=== PATIENT | female | born 1955 | race Caucasian/White ===

== ENCOUNTER → 2016-11-28 | Outpatient (CLI) | payer MEDICARE, BC ==
--- NOTE | 2016-11-28 15:39 | CT ---
EXAMINATION TYPE: CT abdomen pelvis wo con DATE OF EXAM: 11/28/2016 3:20 PM COMPARISON: NONE INDICATION: abdominal pain, hx of hiatal hernia DLP: 1111.0 mGycm, Automated exposure control for dose reduction was used. CONTRAST: mL of . Study performed without Oral Contrast TECHNIQUE: Axial images were obtained from above the diaphragm to the pubic rami in the axial plane a t 5 mm thick sections. Reconstructed images are reviewed on the computer in the coronal plane. FINDINGS: Limited CT sections are obtained the lung bases. The lung bases are clear. CT ABDOMEN: There is an anterior abdominal wall hernia just below the umbilicus. Some loops of small bowel without dilatation within this [place] opening. Liver: Normal Spleen: Normal Pancreas: There is some fatty infiltration within the atrophic pancreas. Adrenal glands: The adrenal glands are normal. Gallbladder: Normal Kidneys: No masses are evident. No hydronephrosis is present. No cysts are present. There may be d uplication of the left renal collecting system. Similar appearance is also present on the right kidne y. Ureters are not dilated. Aorta: Vascular calcification is within the aorta. Inferior vena cava: Normal. CT PELVIS: Loops of bowel within the abdomen and pelvis are normal. Postsurgical changes are within the asce nding colon region. Appendix: Not visualized. Urinary bladder: Normal. Genitourinary structures: Uterus is not identified. Adnexal regions appear unremarkable. Osseous structures: No suspicious lytic or sclerotic lesions. IMPRESSIONS: 1. No acute process abdomen and pelvis. 2. 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 No obstruction is evide nt.
== END | disposition home or self-care (01) ==
LOC: RADCTMAIN 15:05
PROVIDERS: ATTEND Internal Medicine
DX: R10.9 Unspecified abdominal pain (principal)
CPT/HCPCS: 74176

== ENCOUNTER 2017-02-09 11:19 | Observation (INO) | payer MEDICARE, BC ==
[2017-02-09] MEDS ORDERED: ASPIRIN 81 MG CHEW PO STA (11:52)
[2017-02-09] MEDS ORDERED: NITROGLYCERIN OINT 1 INCH/GM PACKET TOPICAL STA (11:52)
--- NOTE | 2017-02-09 12:06 | ED ---
General Adult HPI - General Chief complaint: Chest Pain Stated complaint: CHEST PAIN Time Seen by Provider: 02/09/17 11:29 Source: patient, RN notes reviewed Mode of arrival: ambulatory Limitations: no limitations - History of Present Illness Initial comments: Patient is a pleasant 61-year-old female presenting to the emergency Department with chest discomfort. Symptoms have been intermittent over the past week. Patient has had exertional dyspnea for the past several weeks. No nausea. Patient has had an episode of associated sweating. No history of similar chest discomfort previously. Currently symptoms are mild. Discomfort feels like indigestion or pressure. - Related Data Home Medications Medication Instructions Recorded Confirmed Calcium Carbonate/Vitamin D3 1 tab PO DAILY 06/01/16 02/09/17 [Caltrate 600 Plus D3 Tablet] Labetalol [Trandate] 400 mg PO TID 06/01/16 02/09/17 Lacosamide [Vimpat] 200 mg PO BID@0600,1700 06/01/16 02/09/17 Magnesium 400 mg PO BID@0700,1400 06/01/16 02/09/17 NIFEdipine [Procardia XL] 90 mg PO DAILY 06/01/16 02/09/17 [place]-3 Fatty Acids/Fish Oil [Fish 1 cap PO BID@0600,1700 06/01/16 02/09/17 Oil 1,000 mg Softgel] Omeprazole 20 mg PO BID@0600,1700 06/01/16 02/09/17 Pravastatin Sodium [Pravachol] 20 mg PO HS 06/01/16 02/09/17 Thiamine [Vitamin B-1] 100 mg PO DAILY 06/01/16 02/09/17 cloNIDine HCL [Catapres] 0.2 mg PO BID@0700,2100 06/01/16 02/09/17 cycloSPORINE [cycloSPORINE (GEQ 100 mg PO BID 06/01/16 02/09/17 for SandIMMUNE) 100MG] Insulin Aspart [NovoLOG Flexpen] 15 units SQ AC-TID 02/09/17 02/09/17 Insulin Glargine,Hum.rec.anlog 45 unit SQ AC-BRKFST 02/09/17 02/09/17 [Lantus Solostar] cloNIDine HCL [Catapres] 0.1 mg PO DAILY@1400 02/09/17 02/09/17 Allergies Allergy/AdvReac Type Severity Reaction Status Date / Time venom-honey bee Allergy Severe Swelling Verified 02/09/17 12:29 [bee venom (honey bee)] ciprofloxacin Allergy Rash/Hives Verified 02/09/17 12:29 codeine Allergy Rash/Hives Verified 02/09/17 12:29 erythromycin base Allergy Rash/Hives Verified 02/09/17 12:29 levofloxacin Allergy Rash/Hives Verified 02/09/17 12:29 lisinopril Allergy Rash/Hives Verified 02/09/17 12:29 metformin Allergy Swelling Verified 02/09/17 12:29 of throat moxifloxacin Allergy Rash/Hives Verified 02/09/17 12:29 Penicillins Allergy hives, Verified 02/09/17 12:29 swelling plum Allergy Unknown Verified 02/09/17 12:29 rofecoxib Allergy Rash/Hives Verified 02/09/17 12:29 Tetracyclines Allergy Rash/Hives Verified 02/09/17 12:29 Review of Systems ROS Statement: Those systems with pertinent positive or pertinent negative responses have been documented in the HPI. ROS Other: All systems not noted in ROS Statement are negative. Constitutional: Denies: fever Eyes: Denies: eye pain ENT: Denies: ear pain Respiratory: Reports: dyspnea (With exertion) Cardiovascular: Reports: chest pain Gastrointestinal: Denies: abdominal pain, nausea Genitourinary: Denies: dysuria Musculoskeletal: Denies: back pain Skin: Denies: rash Neurological: Denies: weakness Past Medical History Past Medical History: Diabetes Mellitus, Hyperlipidemia, Hypertension, Seizure Disorder Additional Past Medical History / Comment(s): liver transplant obesity History of Any Multi-Drug Resistant Organisms: None Reported Past Surgical History: Bowel Resection, Breast Surgery, Hernia Repair, Hysterectomy, Tubal Ligation Additional Past Surgical History / Comment(s): liver transplant carpel tunnel gall stones Past Psychological History: Depression Smoking Status: Former smoker Past Alcohol Use History: None Reported Past Drug Use History: None Reported General Exam Limitations: no limitations General appearance: alert, in no apparent distress Head exam: Present: atraumatic Eye exam: Present: normal appearance ENT exam: Present: normal oropharynx Neck exam: Present: normal inspection Respiratory exam: Present: normal lung sounds bilaterally Cardiovascular Exam: Present: regular rate, normal rhythm Expanded Peripheral pulses: 2+: Radial (R), Radial (L), Posterior Tibialis (R), Posterior Tibialis (L) GI/Abdominal exam: Present: soft. Absent: tenderness Extremities exam: Present: normal inspection. Absent: pedal edema, calf tenderness Neurological exam: Present: alert Psychiatric exam: Present: normal affect, normal mood Skin exam: Present: normal color Course Vital Signs 02/09/17 02/09/17 11:21 11:52 Temperature 97.8 F Pulse Rate 87 Pulse Rate [ 85 Left Radial] Respiratory 18 Rate Blood Pressure 191/85 O2 Sat by Pulse 98 Oximetry EKG Findings - EKG Comments: EKG Findings:: Normal sinus rhythm 83. NM 192. QRS 80. QT 404. QTC 474. Normal axis. Normal QRS. Normal ST-T. Medical Decision Making - Medical Decision Making Patient reevaluated and resting comfortably in bed. Patient family updated on results and plan. Case discussed with Dr. Yan, who will admit for Dr. Mims. - Lab Data Result diagrams: 02/09/17 11:50 02/09/17 11:50 Lab Results 02/09/17 02/09/17 02/09/17 Range/Units 11:50 11:50 11:50 WBC 7.5 (3.8-10.6) k/uL RBC 4.25 (3.80-5.40) m/uL Hgb 11.1 L (11.4-16.0) gm/dL Hct 33.8 L (34.0-46.0) % MCV 79.5 L (80.0-100.0) fL MCH 26.1 (25.0-35.0) pg MCHC 32.9 (31.0-37.0) g/dL RDW 16.3 H (11.5-15.5) % Plt Count 309 (150-450) k/uL Neutrophils % 70 % Lymphocytes % 20 % Monocytes % 6 % Eosinophils % 2 % Basophils % 0 % Neutrophils # 5.3 (1.3-7.7) k/uL Lymphocytes # 1.5 (1.0-4.8) k/uL Monocytes # 0.5 (0-1.0) k/uL Eosinophils # 0.2 (0-0.7) k/uL Basophils # 0.0 (0-0.2) k/uL Poikilocytosis Slight Anisocytosis Slight Microcytosis Slight PT (9.0-12.0) sec INR (<1.1) APTT (22.0-30.0) sec Sodium 141 (137-145) mmol/L Potassium 4.7 (3.5-5.1) mmol/L Chloride 104 (98-107) mmol/L Carbon Dioxide 27 (22-30) mmol/L Anion Gap 10 mmol/L BUN 25 H (7-17) mg/dL Creatinine 1.21 H (0.52-1.04) mg/dL Est GFR (MDRD) Af Amer 55 (>60 ml/min/1.73 sqM) Est GFR (MDRD) Non-Af 45 (>60 ml/min/1.73 sqM) Glucose 173 H (74-99) mg/dL Calcium 9.5 (8.4-10.2) mg/dL Magnesium 1.9 (1.6-2.3) mg/dL Total Bilirubin 0.9 (0.2-1.3) mg/dL AST 24 (14-36) U/L ALT 43 (9-52) U/L Alkaline Phosphatase 191 H (38-126) U/L Total Creatine Kinase 110 (30-135) U/L CK-MB (CK-2) 0.8 (0.0-2.4) ng/mL CK-MB (CK-2) Rel Index 0.7 Troponin I <0.012 (0.000-0.034) ng/mL NT-Pro-B Natriuret Pep pg/mL Total Protein 7.0 (6.3-8.2) g/dL Albumin 3.9 (3.5-5.0) g/dL 02/09/17 02/09/17 Range/Units 11:50 11:50 WBC (3.8-10.6) k/uL RBC (3.80-5.40) m/uL Hgb (11.4-16.0) gm/dL Hct (34.0-46.0) % MCV (80.0-100.0) fL MCH (25.0-35.0) pg MCHC (31.0-37.0) g/dL RDW (11.5-15.5) % Plt Count (150-450) k/uL Neutrophils % % Lymphocytes % % Monocytes % % Eosinophils % % Basophils % % Neutrophils # (1.3-7.7) k/uL Lymphocytes # (1.0-4.8) k/uL Monocytes # (0-1.0) k/uL Eosinophils # (0-0.7) k/uL Basophils # (0-0.2) k/uL Poikilocytosis Anisocytosis Microcytosis PT 9.6 (9.0-12.0) sec INR 0.9 (<1.1) APTT 22.2 (22.0-30.0) sec Sodium (137-145) mmol/L Potassium (3.5-5.1) mmol/L Chloride (98-107) mmol/L Carbon Dioxide (22-30) mmol/L Anion Gap mmol/L BUN (7-17) mg/dL Creatinine (0.52-1.04) mg/dL Est GFR (MDRD) Af Amer (>60 ml/min/1.73 sqM) Est GFR (MDRD) Non-Af (>60 ml/min/1.73 sqM) Glucose (74-99) mg/dL Calcium (8.4-10.2) mg/dL Magnesium (1.6-2.3) mg/dL Total Bilirubin (0.2-1.3) mg/dL AST (14-36) U/L ALT (9-52) U/L Alkaline Phosphatase (38-126) U/L Total Creatine Kinase (30-135) U/L CK-MB (CK-2) (0.0-2.4) ng/mL CK-MB (CK-2) Rel Index Troponin I (0.000-0.034) ng/mL NT-Pro-B Natriuret Pep 255 pg/mL Total Protein (6.3-8.2) g/dL Albumin (3.5-5.0) g/dL - Radiology Data Radiology results: image reviewed (Chest x-ray shows no acute process) Disposition Clinical Impression: Unstable angina pectoris Disposition: ADMITTED IP TO THIS [facility] Referrals: Reid Mims MD [Primary Care Provider] - 1-2 days Decision Time: 13:06
[2017-02-09 12:07] LABS: Anisocytosis Slight; Basophils % (A) 0 %; CHCM 34.1; Eosinophils # (A) 0.2 k/uL (0-0.7); Eosinophils % (A) 2 %; HCT 33.8 % (34.0-46.0); HDW 3.93; HGB 11.1 gm/dL (11.4-16.0); Luc # (Auto) 0.13; Luc % (Auto) 2; Lymphocytes # (A) 1.5 k/uL (1.0-4.8); Lymphocytes % (A) 20 %; MCH 26.1 pg (25.0-35.0); MCHC 32.9 g/dL (31.0-37.0); MCV 79.5 fL (80.0-100.0); Mean Platelet Volume 7.7; Microcytosis Slight; Monocytes # (A) 0.5 k/uL (0-1.0); Monocytes % (A) 6 %; Neutrophils # (A) 5.3 k/uL (1.3-7.7); Neutrophils % (A) 70 %; Poikilocytosis Slight; RBC 4.25 m/uL (3.80-5.40); RDW 16.3 % (11.5-15.5); WBC 7.5 k/uL (3.8-10.6); WBC (Perox) 7.27
[2017-02-09 12:16] LABS: INR 0.9 (<1.1); Prothrombin Time 9.6 sec (9.0-12.0)
[2017-02-09 12:17] LABS: Calcium 9.5 mg/dL (8.4-10.2); Magnesium 1.9 mg/dL (1.6-2.3); Potassium 4.7 mmol/L (3.5-5.1); Total Bilirubin 0.9 mg/dL (0.2-1.3)
[2017-02-09 12:25] LABS: Partial Thromboplastin Time 22.2 sec (22.0-30.0)
[2017-02-09 12:26] LABS: Creatine Kinase 110 U/L (30-135)
--- NOTE | 2017-02-09 12:35 | XR ---
EXAMINATION TYPE: XR chest 2V DATE OF EXAM: 02/09/2017 COMPARISON: 10/27/2013 INDICATION: Chest pain TECHNIQUE: Frontal and lateral views of the chest are obtained. FINDINGS: The heart size is normal. The pulmonary vasculature is normal. The lungs are clear. IMPRESSION: 1. No acute pulmonary process.
[2017-02-09 12:39] LABS: Creatine Kinase MB 0.8 ng/mL (0.0-2.4); Troponin I <0.012 ng/mL (0.000-0.034)
[2017-02-09] MEDS ORDERED: HEPARIN SODIUM,PORCINE 5,000 UNIT/ML 1 ML VIAL IV PRN (13:06)
[2017-02-09] MEDS ORDERED: HEPARIN SODIUM,PORCINE 5,000 UNIT/ML 1 ML VIAL IV ONE (13:06)
[2017-02-09] MEDS ORDERED: NITROGLYCERIN SL TABS 0.4 MG TAB SUBLINGUAL PRN (13:06)
[2017-02-09] MEDS ORDERED: HEPARIN SODIUM,PORCINE/D5W PMX 25,000 UNIT in DEXTROSE/WATER 1 500ML.BAG IV SCH (13:15)
[2017-02-09 16:57] LABS: Glucose,Whole Blood 169 mg/dL (75-99)
[2017-02-09 20:17] LABS: Calcium 9.2 mg/dL (8.4-10.2); Total Bilirubin 0.7 mg/dL (0.2-1.3)
[2017-02-09 20:26] LABS: Creatine Kinase 89 U/L (30-135)
[2017-02-09] MEDS: NITROGLYCERIN OINT 1 INCH/GM PACKET TOPICAL SCH (20:32)
[2017-02-09 20:35] LABS: Potassium 4.4 mmol/L (3.5-5.1)
[2017-02-09 20:39] LABS: Creatine Kinase MB 0.6 ng/mL (0.0-2.4); Troponin I <0.012 ng/mL (0.000-0.034)
[2017-02-09] MEDS ORDERED: ACETAMINOPHEN TAB 325 MG TAB PO PRN (20:43)
[2017-02-09] MEDS: LABETALOL 200 MG TAB PO SCH (20:46)
[2017-02-09] MEDS: LACOSAMIDE 50 MG TABLET PO SCH (20:46)
[2017-02-09] MEDS: cloNIDine HCL 0.2 MG TAB PO SCH (20:46)
[2017-02-09] MEDS: cycloSPORINE 100 MG CAP PO SCH (20:46)
[2017-02-09] MEDS: INSULIN LISPRO (humaLOG) 300 UNIT/3 ML VIAL SQ SCH (20:47)
[2017-02-09 20:48] LABS: Glucose,Whole Blood 216 mg/dL (75-99)
[2017-02-09] MEDS ORDERED: PRAVASTATIN SODIUM 20 MG TAB PO SCH (21:00)
[2017-02-09 22:49] LABS: Hemoglobin A1C 7.4 % (4.2-6.1)
[2017-02-09 23:49] LABS: Creatine Kinase 87 U/L (30-135)
[2017-02-10 00:03] LABS: Creatine Kinase MB 0.7 ng/mL (0.0-2.4); Troponin I <0.012 ng/mL (0.000-0.034)
[2017-02-10 03:44] VITALS: RESP 16
[2017-02-10 04:20] LABS: Anisocytosis Slight; Basophils % (A) 1 %; CH 26.6; CHCM 32.2; Eosinophils # (A) 0.2 k/uL (0-0.7); Eosinophils % (A) 4 %; HCT 34.6 % (34.0-46.0); HDW 3.72; HGB 11.1 gm/dL (11.4-16.0); Hypochromasia Slight; Luc # (Auto) 0.14; Luc % (Auto) 3; Lymphocytes # (A) 1.3 k/uL (1.0-4.8); Lymphocytes % (A) 24 %; MCH 26.6 pg (25.0-35.0); MCHC 32.1 g/dL (31.0-37.0); MCV 83.1 fL (80.0-100.0); Mean Platelet Volume 7.1; Monocytes # (A) 0.4 k/uL (0-1.0); Monocytes % (A) 7 %; Neutrophils # (A) 3.4 k/uL (1.3-7.7); Neutrophils % (A) 61 %; Poikilocytosis Slight; RBC 4.17 m/uL (3.80-5.40); RDW 16.5 % (11.5-15.5); WBC 5.5 k/uL (3.8-10.6); WBC (Perox) 5.58
[2017-02-10] MEDS: NITROGLYCERIN OINT 1 INCH/GM PACKET TOPICAL SCH ×3 (05:35→12:45)
[2017-02-10] MEDS ORDERED: LACOSAMIDE 50 MG TABLET PO SCH (06:00)
[2017-02-10] MEDS ORDERED: NON-FORMULARY DRUG (Omega-3 Fatty Acids/Fish Oil [Fish Oil 1,000 Mg Softgel] 1 CAP) PO SCH (06:00)
[2017-02-10] MEDS ORDERED: PANTOPRAZOLE 40 MG TABLET PO SCH (06:00)
[2017-02-10 06:09] LABS: Cholesterol 175 mg/dL (<200); HDL Cholesterol 54 mg/dL (40-60); Triglycerides 199 mg/dL (<150)
[2017-02-10 06:46] LABS: Glucose,Whole Blood 178 mg/dL (75-99)
[2017-02-10] MEDS ORDERED: INSULIN GLARGINE 100 UNIT/ML 10 ML VIAL SQ SCH (07:30)
[2017-02-10] MEDS: MAGNESIUM OXIDE 400 MG TAB PO SCH ×2 (08:33→15:37)
[2017-02-10] MEDS: INSULIN LISPRO (humaLOG) 300 UNIT/3 ML VIAL SQ SCH ×4 (08:34→12:52)
[2017-02-10] MEDS ORDERED: FUROSEMIDE 20 MG TAB PO SCH (09:00)
[2017-02-10] MEDS ORDERED: ASPIRIN 325 MG TAB PO SCH (09:00)
[2017-02-10] MEDS ORDERED: CALCIUM CARB-VIT D 500MG-200UN 1 EACH TAB PO SCH (09:00)
[2017-02-10] MEDS ORDERED: NIFEdipine XL 90 MG TAB.ER.24 PO SCH (09:00)
[2017-02-10] MEDS ORDERED: THIAMINE 100 MG TAB PO SCH (09:00)
[2017-02-10 09:59] LABS: Glucose,Whole Blood 139 mg/dL (75-99)
[2017-02-10] MEDS ORDERED: DOBUTamine DRIP for NUC MED 500 MG in DEXTROSE/WATER 1 250ML.BAG IV ONE (10:27)
--- NOTE | 2017-02-10 10:33 | P.CRDCN ---
History of Present Illness Reason for Consult (text): Chest pain and shortness of breath. History of present illness: This patient is a having symptoms of chest discomfort and shortness of breath on and off for last couple of weeks. He was he tries to do something she gets short of breath and see has to rest. Sees a having a mild dull aching pain in the left anterior part of the chest. Comes and goes. And has a history of for hypertension and diabetes. Also has a history of for liver transplant is no previous history of myocardial infarction. Patient denies any history of orthopnea or PND. Denies any history of cough with expectoration. Past Medical History Past Medical History: COPD, Diabetes Mellitus, GERD/Reflux, Hyperlipidemia, Hypertension, Liver Disease, Renal Disease, Rheumatoid Arthritis (RA), Seizure Disorder Additional Past Medical History / Comment(s): Cryptogenic cirrhosis with liver transplant 2013, hepatic encephalopathy, IDDM type II, numbness/tingling L arm, CKD stage III, anemia, last seizure 06/20/14, hiatal hernia, PUD, colitis, eczema , migraines, scoliosis, UTIs, colon polyps benign, varicose veins bilaterally, obesity History of Any Multi-Drug Resistant Organisms: None Reported Past Surgical History: Bowel Resection, Breast Surgery, Cholecystectomy, Hernia Repair, Hysterectomy, Tonsillectomy, Tubal Ligation Additional Past Surgical History / Comment(s): 2013 liver transplant, bowel resection d/t strangulation, L breast bx/lumpectomy-benign, incisional hernia repair, R carpel tunnel release, colonoscopy/polypectomy, R foot heel spur, bilateral cataract removal, mass removed from thyroid-benign. Past Anesthesia/Blood Transfusion Reactions: No Reported Reaction Smoking Status: Former smoker - Past Family History Father Family Medical History: Myocardial Infarction (MO) Additional Family Medical History / Comment(s): Father of a MO at the age of 44yrs. Mother Family Medical History: Coronary Artery Disease (CAD), Dementia, Diabetes Mellitus Additional Family Medical History / Comment(s): Mother at the age of 78yrs. Medications and Allergies Home Medications Medication Instructions Recorded Confirmed Type Calcium Carbonate/Vitamin D3 1 tab PO DAILY 06/01/16 02/09/17 History [Caltrate 600 Plus D3 Tablet] Labetalol [Trandate] 400 mg PO TID 06/01/16 02/09/17 History Lacosamide [Vimpat] 200 mg PO BID@0600,1700 06/01/16 02/09/17 History Magnesium 400 mg PO BID@0700,1400 06/01/16 02/09/17 History NIFEdipine [Procardia XL] 90 mg PO DAILY 06/01/16 02/09/17 History [place]-3 Fatty Acids/Fish Oil [Fish 1 cap PO BID@0600,1700 06/01/16 02/09/17 History Oil 1,000 mg Softgel] Omeprazole 20 mg PO BID@0600,1700 06/01/16 02/09/17 History Pravastatin Sodium [Pravachol] 20 mg PO HS 06/01/16 02/09/17 History Thiamine [Vitamin B-1] 100 mg PO DAILY 06/01/16 02/09/17 History cloNIDine HCL [Catapres] 0.2 mg PO BID@0700,2100 06/01/16 02/09/17 History cycloSPORINE [cycloSPORINE (GEQ 100 mg PO BID 06/01/16 02/09/17 History for SandIMMUNE) 100MG] Insulin Aspart [NovoLOG Flexpen] 15 units SQ AC-TID 02/09/17 02/09/17 History Insulin Glargine,Hum.rec.anlog 45 unit SQ AC-BRKFST 02/09/17 02/09/17 History [Lantus Solostar] cloNIDine HCL [Catapres] 0.1 mg PO DAILY@1400 02/09/17 02/09/17 History Allergies Allergy/AdvReac Type Severity Reaction Status Date / Time venom-honey bee Allergy Severe Swelling Verified 02/09/17 12:29 [bee venom (honey bee)] ciprofloxacin Allergy Rash/Hives Verified 02/09/17 12:29 codeine Allergy Rash/Hives Verified 02/09/17 12:29 erythromycin base Allergy Rash/Hives Verified 02/09/17 12:29 levofloxacin Allergy Rash/Hives Verified 02/09/17 12:29 lisinopril Allergy Rash/Hives Verified 02/09/17 12:29 metformin Allergy Swelling Verified 02/09/17 12:29 of throat moxifloxacin Allergy Rash/Hives Verified 02/09/17 12:29 Penicillins Allergy hives, Verified 02/09/17 12:29 swelling plum Allergy Unknown Verified 02/09/17 12:29 rofecoxib Allergy Rash/Hives Verified 02/09/17 12:29 Tetracyclines Allergy Rash/Hives Verified 02/09/17 12:29 Physical Exam Vitals: Vital Signs Temp Pulse Pulse Pulse Resp BP BP 02/10/17 08:00 98.2 F 77 16 178/93 02/10/17 04:00 16 02/10/17 03:43 97.9 F 67 16 169/70 02/10/17 00:00 18 02/09/17 23:56 98.7 F 77 18 180/91 02/09/17 20:00 16 02/09/17 19:27 98.6 F 81 16 179/82 02/09/17 16:39 02/09/17 16:04 98.1 F 70 18 02/09/17 13:23 97 F L 72 17 129/59 02/09/17 11:52 85 02/09/17 11:21 97.8 F 87 18 191/85 BP Pulse Ox 02/10/17 08:00 94 L 02/10/17 04:00 02/10/17 03:43 92 L 02/10/17 00:00 02/09/17 23:56 91 L 02/09/17 20:00 02/09/17 19:27 92 L 02/09/17 16:39 94 L 02/09/17 16:04 140/75 92 L 02/09/17 13:23 98 02/09/17 11:52 02/09/17 11:21 98 Intake and Output 02/09/17 02/10/17 02/10/17 22:59 06:59 14:59 Intake Total 160.667 198.892 Balance 160.667 198.892 Intake: Intake, IV Titration 160.667 198.892 Amount Heparin Sodium,Porcine/ 160.667 198.892 D5w Pmx 25,000 unit In Dextrose/Water 1 500ml. bag @ 9.713 UNITS/KG/HR 20 mls/hr IV .Q24H [facility] Rx #:[id number] Other: Voiding Method Toilet Toilet # Voids 1 1 This patient is obesely built and comfortable. Vital signs are reviewed. Head ENT. Negative. Neck. Supple no increase in jugular venous pressure is noted. The carotid pulses are felt at that is no bruit. Chest symmetrical Heart. First and second heart sounds are normal no murmurs are noted. Once. Clinically clear to auscultation and percussion. Abdomen. Soft liver and spleen are not enlarged Extremities peripheral pulses since are 2+ that is no evidence of any leg edema. EKG shows normal sinus rhythm without any acute ischemic changes. Troponins are normal. Results 02/10/17 03:53 02/09/17 19:30 Cardiac Enzymes 02/09/17 02/09/17 02/09/17 Range/Units 11:50 11:50 19:27 AST 24 (14-36) U/L CK-MB (CK-2) 0.8 0.6 (0.0-2.4) ng/mL Troponin I <0.012 <0.012 (0.000-0.034) ng/mL 02/09/17 02/09/17 Range/Units 19:30 23:13 AST 26 (14-36) U/L CK-MB (CK-2) 0.7 (0.0-2.4) ng/mL Troponin I <0.012 (0.000-0.034) ng/mL Coagulation 02/09/17 02/09/17 02/10/17 Range/Units 11:50 19:27 03:53 PT 9.6 (9.0-12.0) sec APTT 22.2 25.3 35.3 H (22.0-30.0) sec Lipids 02/10/17 Range/Units 03:53 Triglycerides 199 H (<150) mg/dL Cholesterol 175 (<200) mg/dL HDL Cholesterol 54 (40-60) mg/dL CBC 02/09/17 02/10/17 Range/Units 11:50 03:53 WBC 7.5 5.5 (3.8-10.6) k/uL RBC 4.25 4.17 (3.80-5.40) m/uL Hgb 11.1 L 11.1 L (11.4-16.0) gm/dL Hct 33.8 L 34.6 (34.0-46.0) % Plt Count 309 267 (150-450) k/uL Comprehensive Metabolic Panel 02/09/17 02/09/17 Range/Units 11:50 19:30 Sodium 141 139 (137-145) mmol/L Potassium 4.7 4.4 (3.5-5.1) mmol/L Chloride 104 106 (98-107) mmol/L Carbon Dioxide 27 23 (22-30) mmol/L BUN 25 H 26 H (7-17) mg/dL Creatinine 1.21 H 1.35 H (0.52-1.04) mg/dL Glucose 173 H 273 H (74-99) mg/dL Calcium 9.5 9.2 (8.4-10.2) mg/dL AST 24 26 (14-36) U/L ALT 43 37 (9-52) U/L Alkaline Phosphatase 191 H 176 H (38-126) U/L Total Protein 7.0 7.0 (6.3-8.2) g/dL Albumin 3.9 3.7 (3.5-5.0) g/dL Current Medications Generic Name Dose Route Start Last Admin Trade Name Freq PRN Reason Stop Dose Admin Acetaminophen 650 mg 02/09/17 20:43 02/09/17 20:50 Tylenol Tab PO 650 mg Q4HR PRN Administration Fever and/ or Pain Aspirin 325 mg 02/10/17 09:00 02/10/17 08:33 Aspirin PO 325 mg DAILY [facility]DI Administration Calcium Carbonate 1 each 02/10/17 09:00 02/10/17 08:33 Oscal 500+D PO 1 each DAILY [facility]DI Administration Clonidine 0.1 mg 02/10/17 14:00 Catapres PO DAILY@1400 [facility]DI Clonidine 0.2 mg 02/09/17 21:00 02/09/17 20:46 Catapres PO 0.2 mg BID@0700,2100 [facility] Administration Cyclosporine 100 mg 02/09/17 21:00 02/09/17 20:46 Sandimmune PO 100 mg BID [facility]DI Administration Furosemide 20 mg 02/10/17 09:00 02/10/17 08:33 Lasix PO 20 mg DAILY [facility]DI Administration Heparin Sodium (Porcine) 0 unit 02/09/17 13:06 Heparin IV Q6HR PRN Low PTT Protocol Heparin Sodium/Dextrose 25,000 500 mls @ 20 mls/hr 02/09/17 13:15 02/10/17 05 :32 unit/ IV Solution IV 15.71 units/kg/hr .Q24H [facility] 32.35 mls/hr Protocol Titration 9.713 UNITS/KG/HR Insulin Glargine 45 unit 02/10/17 07:30 02/10/17 08:21 Lantus SQ Not Given AC-BRKFST [facility] Insulin Human Lispro 15 unit 02/10/17 07:30 02/10/17 08:34 Humalog SQ 15 unit AC-TID [facility]DI Administration Insulin Human Lispro 0 unit 02/09/17 21:00 02/10/17 08:35 Humalog SQ 3 unit ACHS [facility]DI Administration Protocol Labetalol HCl 400 mg 02/09/17 22:00 02/09/17 20:46 Trandate PO 400 mg TID [facility] Administration Lacosamide 200 mg 02/09/17 21:00 02/09/17 20:46 Vimpat PO 200 mg BID [facility] Administration Magnesium Oxide 400 mg 02/10/17 07:00 02/10/17 08:33 Mag-Ox PO 400 mg BID@0700,1400 [facility] Administration Nifedipine 90 mg 02/10/17 09:00 Procardia Xl PO DAILY [facility] Nitroglycerin 1 inch 02/09/17 18:00 02/10/17 05:35 Nitro-Bid Oint TOPICAL Not Given Q6HR [facility] Nitroglycerin 0.4 mg 02/09/17 13:06 Nitrostat SUBLINGUAL Q5M PRN Chest Pain Pantoprazole Sodium 40 mg 02/10/17 06:00 02/10/17 05:37 Protonix PO 40 mg BID@0600,1700 [facility] Administration Pravastatin Sodium 20 mg 02/09/17 21:00 02/09/17 20:46 Pravachol PO 20 mg HS [facility] Administration Sodium Chloride 10 ml 02/09/17 21:00 02/10/17 08:22 Saline Flush IV Not Given BID [facility] Thiamine HCl 100 mg 02/10/17 09:00 02/10/17 08:33 Vitamin B-1 PO 100 mg DAILY [facility] Administration Intake and Output 02/09/17 02/10/17 02/10/17 22:59 06:59 14:59 Intake Total 160.667 198.892 Balance 160.667 198.892 Intake: Intake, IV Titration 160.667 198.892 Amount Heparin Sodium,Porcine/ 160.667 198.892 D5w Pmx 25,000 unit In Dextrose/Water 1 500ml. bag @ 9.713 UNITS/KG/HR 20 mls/hr IV .Q24H [facility] Rx #:[id number] Other: Voiding Method Toilet Toilet # Voids 1 1 02/10/17 03:53 02/09/17 19:30 EKG Interpretations (text) EKG shows normal sinus rhythm without any acute ischemic changes. Assessment and Plan Plan: Clinically this is chest pains are suggestive for atypical angina. Since EKGs and cardiac enzymes are normal. Is no evidence of congestive cardiac failure patient's proBNP level is normal. Patient would be evaluated with echocardiogram and dobutamine stress echocardiographic study. The stress test is normal patient can be discharged home. I have advised to patient to check with his her liver doctor whether she can be started on any statin.
[2017-02-10] MEDS: cycloSPORINE 100 MG CAP PO SCH (10:34)
[2017-02-10] MEDS: LACOSAMIDE 50 MG TABLET PO SCH (10:36)
[2017-02-10] MEDS ORDERED: ATROPINE SULFATE 0.1 MG/ML 10ML SYRINGE ONE (12:00)
[2017-02-10 12:20] LABS: Glucose,Whole Blood 71 mg/dL (75-99)
--- NOTE | 2017-02-10 12:21 | ECHOF ---
Referral Reason:chest pain MEASUREMENTS -------- HEIGHT: 154.9 cm WEIGHT: 103.0 kg BP: IVSd: 1.2 cm (0.6 - 1.1) LVIDd: 4.4 cm (3.9 - 5.3) LVPWd: 1.2 cm (0.6 - 1.1) IVSs: 1.6 cm LVIDs: 2.5 cm LVPWs: 1.5 cm LAESV Index (A-L): 19.66 ml/m Ao Diam: 3.0 cm (2.0 - 3.7) AV Cusp: 1.7 cm (1.5 - 2.6) LA Diam: 2.8 cm (2.7 - 3.8) MV EXCURSION: 15.271 mm (> 18.000) MV EF SLOPE: 81 mm/s (70 - 150) EPSS: 0.4 cm MV E Raymond: 0.87 m/s MV DecT: 207 ms MV A Raymond: 0.87 m/s MV E/A Ratio: 1.00 AR PHT: 905 ms RAP: 5.00 mmHg RVSP: 25.15 mmHg FINDINGS -------- Sinus rhythm. This was a technically good study. There is borderline concentric left ventricular hypertrophy. Overall left ventricular systolic function is normal with, an EF between 55 - 60 %. The right ventricle is normal in size and function. The left atrium is normal in size. Normal LA size by volume 22+/-6 ml/m2. The right atrium is normal in size. The aortic valve is trileaflet, and appears structurally normal. No aortic stenosis or regurgitation. The mitral valve leaflets are mildly thickened. Mild mitral regurgitation is present. Mild tricuspid regurgitation present. The right ventricular systolic pressure, as measured by Doppler, is 25.15mmHg. Pulmonic valve appears structurally normal. The aortic root size is normal. The pericardium is normal. CONCLUSIONS -------- 1. Sinus rhythm. 2. The mitral valve leaflets are mildly thickened. 3. Mild mitral regurgitation is present. 4. Mild tricuspid regurgitation present. 5. The right ventricular systolic pressure, as measured by Doppler, is 25.15mmHg. 6. Pulmonic valve appears structurally normal. 7. The aortic root size is normal. 8. The pericardium is normal. 9. This was a technically good study. 10. There is borderline concentric left ventricular hypertrophy. 11. Overall left ventricular systolic function is normal with, an EF between 55 - 60 %. 12. The right ventricle is normal in size and function. 13. The left atrium is normal in size. 14. Normal LA size by volume 22+/-6 ml/m2. 15. The right atrium is normal in size. 16. The aortic valve is trileaflet, and appears structurally normal. No aortic stenosis or regurgitation. AUTHORIZATION REP: Judy Mckeon RDCS
[2017-02-10 12:22] VITALS: BP 179/89; PULSE 93; TEMP 98.5
[2017-02-10] MEDS: LABETALOL 200 MG TAB PO SCH (12:52)
[2017-02-10] MEDS: cloNIDine HCL 0.2 MG TAB PO SCH (12:52)
[2017-02-10 13:04] LABS: Glucose,Whole Blood 152 mg/dL (75-99)
[2017-02-10] MEDS ORDERED: cloNIDine HCL 0.1 MG TAB PO SCH (14:00)
--- NOTE | 2017-02-10 17:45 | P.STRESS ---
- Stress Test Note Stress Test Results/Findings: Exam Performed: dobutamine stress echo with con Exam Date: 02/10/17 Height: 5 ft 1 in Weight: 102.965 kg Protocol: DOBUTAMINE STRESS ECHO W/ CONTRAST Stage: 4 Duration of Exercise: 10:00 Resting Heart Rate: 69 Resting Blood Pressure: 138/85 Maximum Achieved Heart Rate: 143 Maximum Achieved Blood Pressure: 228/82 85% PMHR: 136 100% PMHR: 160 METS: N/A Technologist Comment: Stress Test Results/Findings: Baseline EKG shows sinus rhythm poor R-wave progression nonspecific ST-T wave changes. Patient was given intravenous dobutamine or a period of 10 minutes as per protocol also received 0.5 mg of atropine. Patient attained 89% of predicted maximal heart rate there was worsening of the baseline ST-T wave changes noted with worsening PVCs. Baseline echo shows poor endocardial visualization and a technically suboptimal study endocardial visualization was enhanced by using contrast agent. There were no wall motion and a mallet these. Posterior dobutamine infusion there is normal hyperdynamic response of all segments of myocardium noted Conclusions Technically suboptimal study Inconclusive EKG part of the stress test due to baseline EKG Negative dobutamine echo
--- NOTE | 2017-02-11 15:02 | HP ---
DATE OF ADMISSION: 02/09/2017 CHIEF COMPLAINT: Chest pain. This 61 year old woman with past medical of multiple medical problems including liver transplant, history of COPD, diabetes, GERD, hypertension, hyperlipidemia , history of rheumatoid arthritis, seizures, acute tubular necrosis and MCCLURE, being followed by Dr. Mims as well as [facility] liver transplant team. The patient was complaining of chest pain. The patient apparently had cardiac catheterization in 2009 which was normal. The results are not available at this time. The patient had pain in the left side of the chest radiating to the back and left arm. Numbness also persists. Significant symptoms from radiation. The patient came to [facility] and was admitted for further evaluation and treatment. The discomfort was felt in the no pressure according to her. There is no history of fever, rigors or chills. No history of headache, loss of consciousness or seizures. PAST MEDICAL HISTORY: COPD, Diabetes, GERD, hypertension, hyperlipidemia, history of liver disease, history of rheumatoid arthritis, history of seizures, history of ( ), bowel resection. Medications prior to admission include: Home medications are: 2. Lantus 45 units subcu a.c. breakfast. 3. Calcium citrate one tablet po daily. 4. Vitamin B1 100 mg po daily. 5. Omeprazole 20 mg p.o. b.i.d. 6. Vimpat 200 mg b.i.d. 7. Pravachol 20 mg q.h.s. 8. Procardia XL 90 mg po daily. 9. Magnesium 400 mg po b.i.d. 10. Cyclosporin 100 mg po b.i.d. 11. Clare-3 fatty acid one capsule po b.i.d. 12. Trandate 400 mg po t.i.d. 13. Catapres 0.1 mg po daily. 14. Catapres 0.2 mg po t.i.d. ALLERGIES: BEE VENOM, CIPROFLOXACIN, CODEINE, ZITHROMAX, LEVAQUIN, LISINOPRIL, METFORMIN, OFLOXACIN, PENICILLIN, TETRACYCLINE. FAMILY HISTORY: Myocardial infarction. Also heart disease in the son. Father age 44 years because of myocardial infarction. SOCIAL HISTORY: Previous history of smoking. No history of current smoking or alcohol intake. REVIEW OF SYSTEMS: ENT: No diminished vision. No diminished hearing. CARDIOVASCULAR: As mentioned earlier. RESPIRATORY: As mentioned earlier. GI: No nausea or vomiting. : As mentioned earlier. ALLERGY/IMMUNOLOGY: No asthma or hayfever. NERVOUS SYSTEM: No numbness, weakness. MUSCULOSKELETAL: As mentioned earlier. HEMATOLOGY/ONCOLOGY: As mentioned earlier. ENDOCRINE: Diabetes. CONSTITUTIONAL: As mentioned earlier. DERMATOLOGY: Negative. RHEUMATOLOGY: Negative. PSYCHIATRY: As mentioned earlier. PHYSICAL EXAM: The patient is awake, alert and oriented times three. Pulse is 70. Blood pressure 140/74. Respiratory rate 18. Temperature 98.1, pulse ox 92% on room air. HEENT: Conjunctivae normal. Oral mucosa moist. NECK: No jugular venous distention. No carotid bruit. No lymph node enlargement. CARDIOVASCULAR: S1, S2 muffled. No S3, no S4. No murmur, no thrills. RESPIRATORY: Breath sounds diminished at the bases. No rhonchi. No crackles. ABDOMEN: Soft, obese, status surgery for liver transplantation. Multiple healed scars and possible incisional hernia present. Bowel sounds present. No guarding. No rigidity. No mass palpable. LEGS: No edema. No swelling. NERVOUS SYSTEM: Higher functions as mentioned earlier. Cranial nerves 2 thru 12 grossly intact. Moves all four limbs. No focal motor or sensory deficits. LYMPHATICS: No lymph nodes palpable in the neck or axillae. SKIN: No ulcer, rash or bleeding. LABS: WBC 7.5, hemoglobin 11.1, creatinine 1.21, glucose 273, alk phos 191. ASSESSMENT: 1. Chest pain, possible unstable angina, rule out musculoskeletal chest pain. 2. History of liver transplant for cirrhosis, and MCCLURE. 3. Anemia, microcytic. 4. Increased creatinine with Stage III, chronic kidney disease. 5. Diabetes mellitus type 2. 6. Morbid obesity, BMI 42.9. 7. Chronic obstructive pulmonary disease. 8. History of gastroesophageal reflux disease. 9. Essential hypertension. 10. Hyperlipidemia. 11. History of rheumatoid arthritis. 12. History of seizure disorder. 13. History of hiatal hernia. 14. History of peptic ulcer disease. 15. History of colitis. 16. History of migraines. 17. History of scoliosis. 18. History of urinary tract infection. 19. History of bowel resection. 20. History of liver transplant as mentioned earlier. 21. History of degenerative joint disease. 22. Remote history of nicotine dependence. 23. FULL CODE. RECOMMENDATIONS AND DISCUSSION: In this 61 year old woman who presented with multiple medical problems, we will monitor the patient closely, continue the current medications, continue symptomatic treatment. We recommend to resume the home dose of insulin, home medications, Accu-Cheks a.c. and q.h.s., acute coronary syndrome protocol. Cardiology consultation. Possible stress test. Repeat labs in the morning. Continue with monitoring. Further recommendations to follow. A copy of dictation will be forwarded to Dr. Mims who is the primary care physician. ALEXI
--- NOTE | 2017-02-18 11:01 | DS ---
DATE OF SERVICE: 02/10/2017 FINAL DIAGNOSES: 1. Chest pain, possibly musculoskeletal, negative stress test. 2. History of liver transplant. 3. Cirrhosis liver 4. Anemia, microcytic. 5. Increased creatinine and stage III chronic kidney disease. 6. Diabetes mellitus type 2. 7. Multiple other medical problems history. HISTORY OF PRESENT ILLNESS: This 61-year-old woman with past medical history of multiple medical problems admitted with chest pain, myocardial infarction ruled out. Cardiology performed a Dobutamine stress test and report is negative. Improved significantly. On exam, vitals are stable. CARDIOVASCULAR: S1, S2. ABDOMEN: Soft. NERVOUS SYSTEM: No focal deficits. DISCHARGE ADVICE AND MEDICATIONS: 1. Diet is cardiac. 2. Activity limited until follow up. 3. Follow with Dr. Mims as advised. 4. 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 Recommended medications: 1. Calcium carbonate 1 p.o. daily. 2. Catapres 0.2 b.i.d. 3. Catapres 0.1 daily. 4. cyclosporin 100 mg p.o. b.i.d. 5. NovoLog Flex 15 units a.c. t.i.d. 6. Insulin Lantus 45 units a.c. breakfast. 7. Trandate 400 mg t.i.d. 8. Vimpat 200 mg p.o. b.i.d. 9. Magnesium 400 mg p.o. b.i.d. 10. Procardia XL 90 mg p.o. daily. 11. ( ) 1 p.o. b.i.d. 12. Omeprazole 20 mg b.i.d. 13. Pravachol 20 mg q.h.s. 14. Thiamine 100 mg p.o. daily. Follow with [facility]. [facility]
== END 2017-02-10 15:35 | disposition home or self-care (01) ==
LOC: EC 11:19 → 3OBS 13:06
PROVIDERS: ADMIT Hospitalist; ATTEND Hospitalist
DX: R07.89 Other chest pain (principal); F32.9 Major depressive disorder, single episode, unspecified; E66.9 Obesity, unspecified; G40.909 Epilepsy, unspecified, not intractable, without status epilepticus; E78.5 Hyperlipidemia, unspecified; I12.9 Hypertensive chronic kidney disease with stage 1 through stage 4 chronic kidney disease, or unspecified chronic kidney disease; E11.22 Type 2 diabetes mellitus with diabetic chronic kidney disease; M06.9 Rheumatoid arthritis, unspecified; K21.9 Gastro-esophageal reflux disease without esophagitis; J44.9 Chronic obstructive pulmonary disease, unspecified; N18.3 Chronic kidney disease, stage 3 (moderate); G43.909 Migraine, unspecified, not intractable, without status migrainosus; M19.90 Unspecified osteoarthritis, unspecified site; M41.9 Scoliosis, unspecified; D50.9 Iron deficiency anemia, unspecified; K44.9 Diaphragmatic hernia without obstruction or gangrene; Z79.899 Other long term (current) drug therapy; Z79.4 Long term (current) use of insulin; Z88.5 Allergy status to narcotic agent; Z88.0 Allergy status to penicillin; Z88.2 Allergy status to sulfonamides; Z88.8 Allergy status to other drugs, medicaments and biological substances; Z88.1 Allergy status to other antibiotic agents; Z88.3 Allergy status to other anti-infective agents; Z91.030 Bee allergy status; Z94.4 Liver transplant status; Z68.41 Body mass index [BMI] 40.0-44.9, adult; Z71.3 Dietary counseling and surveillance; Z87.891 Personal history of nicotine dependence; Z82.49 Family history of ischemic heart disease and other diseases of the circulatory system; Z87.11 Personal history of peptic ulcer disease; Z87.440 Personal history of urinary (tract) infections
CPT/HCPCS: 96376 ×2; 99285 ×2; 93005 ×2; 96365; 96366 ×2; 36415; 93017; 93306; 83880; 80061; 80053; 83036; 82550; 82553; 83735; 84484; 85025 ×2; 85610; 85730 ×2; 71020; G0378 ×2; C8928; J1250; J1644 ×2; J0461; Q9957; J7502 ×2; 93350

== ENCOUNTER → 2018-04-30 | Outpatient (CLI) | payer MEDICARE, BC ==
[2018-04-30 09:25] LABS: Anisocytosis Slight; Basophils # (A) 0.1 k/uL (0-0.2); Basophils % (A) 1 %; Eosinophils # (A) 0.3 k/uL (0-0.7); Eosinophils % (A) 4 %; HCT 32.9 % (34.0-46.0); HGB 10.1 gm/dL (11.4-16.0); Hypochromasia Marked; Lymphocytes # (A) 1.4 k/uL (1.0-4.8); Lymphocytes % (A) 15 %; MCH 21.6 pg (25.0-35.0); MCHC 30.6 g/dL (31.0-37.0); MCV 70.6 fL (80.0-100.0); Microcytosis Marked; Monocytes # (A) 0.6 k/uL (0-1.0); Monocytes % (A) 6 %; Neutrophils # (A) 7.2 k/uL (1.3-7.7); Neutrophils % (A) 74 %; Platelet Count 429 k/uL (150-450); Poikilocytosis Slight; RBC 4.66 m/uL (3.80-5.40); WBC 9.7 k/uL (3.8-10.6)
[2018-04-30 09:46] LABS: Albumin 3.7 g/dL (3.5-5.0); Bilirubin, Delta 0.3 mg/dL (0.0-0.2); Bilirubin,Unconjugated 0.3 mg/dL (0.0-1.1); Calcium 9.6 mg/dL (8.4-10.2); Magnesium 1.8 mg/dL (1.6-2.3); Total Bilirubin 0.6 mg/dL (0.2-1.3); Total Protein 6.7 g/dL (6.3-8.2)
[2018-04-30 17:35] LABS: Iron Saturation 7.64 (12.00-45.00)
== END ==
LOC: LABWHC1 08:28
PROVIDERS: ATTEND Internal Medicine Gastroenterology
DX: I12.9 Hypertensive chronic kidney disease with stage 1 through stage 4 chronic kidney disease, or unspecified chronic kidney disease (principal); E08.22 Diabetes mellitus due to underlying condition with diabetic chronic kidney disease; N18.3 Chronic kidney disease, stage 3 (moderate); D63.1 Anemia in chronic kidney disease; E78.2 Mixed hyperlipidemia; Z79.4 Long term (current) use of insulin; Z94.4 Liver transplant status
CPT/HCPCS: 36415; 80048; 80061; 80076; 80158; 82728; 83540; 83550; 83735; 85025

== ENCOUNTER 2018-10-04 10:44 | Observation (INO) | payer MEDICARE, BC ==
[2018-10-04] MEDS ORDERED: HYDROmorphone 0.5 MG/0.5 ML SYRINGE IVP STA (11:00)
--- NOTE | 2018-10-04 11:09 | ED ---
General Adult HPI - General Chief complaint: Chest Pain Stated complaint: JOSH Time Seen by Provider: 10/04/18 11:00 Source: patient, RN notes reviewed Mode of arrival: EMS Limitations: no limitations - History of Present Illness Initial comments: This is 63-year-old female presents emergency Department with a past medical history significant for diabetes kidney failure and a liver transplant back in 2013. Patient comes in today because she has been feeling some pain in her upper mid back which radiates up the back of her neck on the left side. Patient states the pain is worse with movement and deep breathing. Patient states the pain is worse with palpation. Patient states she also had some chest heaviness earlier and some shortness of breath. Patient denies any lightheadedness or dizziness. Patient denies any numbness or weakness. Patient denies any nausea vomiting diarrhea per patient denies any recent fever chills or cough. Patient denies any recent injury or trauma. - Related Data Home Medications Medication Instructions Recorded Confirmed Calcium Carbonate/Vitamin D3 1 tab PO DAILY@1700 06/01/16 10/04/18 [Caltrate 600 Plus D3 Tablet] Labetalol [Trandate] 400 mg PO TID@0600,1400,2100 06/01/16 10/04/18 Lacosamide [Vimpat] 200 mg PO BID@0600,1700 06/01/16 10/04/18 NIFEdipine [Procardia XL] 90 mg PO HS 06/01/16 10/04/18 Omeprazole 20 mg PO BID@0600,1700 06/01/16 10/04/18 Thiamine [Vitamin B-1] 100 mg PO DAILY@0600 06/01/16 10/04/18 Insulin Aspart [NovoLOG Flexpen] 15 units SQ AC-TID 02/09/17 10/04/18 Albuterol Inhaler [Ventolin Hfa 1 - 2 puff INHALATION RT-Q6H PRN 10/04/18 Inhaler] Cholecalciferol (Vitamin D3) 2,000 unit PO DAILY@1700 10/04/18 10/04/18 [Vitamin D3] Furosemide [Lasix] 40 mg PO BID@0700,1400 10/04/18 10/04/18 Insulin Aspart [NovoLOG Flexpen] See Protocol SQ AC-TID 10/04/18 10/04/18 Insulin Degludec [Tresiba 60 units SQ HS 10/04/18 10/04/18 Flextouch U-100] Losartan [Cozaar] 50 mg PO HS 10/04/18 10/04/18 Magnesium Oxide [Mag-Ox] 800 mg PO BID@0700,1400 10/04/18 10/04/18 Montelukast [Singulair] 10 mg PO HS 10/04/18 10/04/18 Mycophenolate Mofetil [Cellcept] 250 mg PO BID 10/04/18 10/04/18 Pioglitazone [Actos] 30 mg PO DAILY@0700 10/04/18 10/04/18 Semaglutide [Ozempic] 2.5 mg SQ TU 10/04/18 10/04/18 Vitamin D2 61679 Units 10,000 units PO Q14D 10/04/18 10/04/18 cycloSPORINE, MODIFIED [Neoral] 50 mg PO HS 10/04/18 10/04/18 cycloSPORINE, MODIFIED [Neoral] 75 mg PO DAILY 10/04/18 10/04/18 metFORMIN HCL [Glucophage] 500 mg PO BID@0700,1400 10/04/18 10/04/18 Allergies Allergy/AdvReac Type Severity Reaction Status Date / Time venom-honey bee Allergy Severe Swelling Verified 10/04/18 11:31 [bee venom (honey bee)] ciprofloxacin Allergy Rash/Hives Verified 10/04/18 11:31 codeine Allergy Rash/Hives Verified 10/04/18 11:31 erythromycin base Allergy Rash/Hives Verified 10/04/18 11:31 levofloxacin Allergy Rash/Hives Verified 10/04/18 11:31 lisinopril Allergy Rash/Hives Verified 10/04/18 11:31 metformin Allergy Swelling Verified 10/04/18 11:31 of throat moxifloxacin Allergy Rash/Hives Verified 10/04/18 11:31 Penicillins Allergy hives, Verified 10/04/18 11:31 swelling plum Allergy Unknown Verified 10/04/18 11:31 rofecoxib Allergy Rash/Hives Verified 10/04/18 11:31 Tetracyclines Allergy Rash/Hives Verified 10/04/18 11:31 Review of Systems ROS Statement: Those systems with pertinent positive or pertinent negative responses have been documented in the HPI. ROS Other: All systems not noted in ROS Statement are negative. Past Medical History Past Medical History: COPD, Diabetes Mellitus, GERD/Reflux, Hyperlipidemia, Hypertension, Liver Disease, Renal Disease, Rheumatoid Arthritis (RA), Seizure Disorder Additional Past Medical History / Comment(s): Cryptogenic cirrhosis with liver transplant 2013, hepatic encephalopathy, IDDM type II, numbness/tingling L arm, CKD stage III, anemia, last seizure 06/20/14, hiatal hernia, PUD, colitis, eczema , migraines, scoliosis, UTIs, colon polyps benign, varicose veins bilaterally, obesity History of Any Multi-Drug Resistant Organisms: None Reported Past Surgical History: Bowel Resection, Breast Surgery, Cholecystectomy, Hernia Repair, Hysterectomy, Tonsillectomy, Tubal Ligation Additional Past Surgical History / Comment(s): 2013 liver transplant, bowel resection d/t strangulation, L breast bx/lumpectomy-benign, incisional hernia repair, R carpel tunnel release, colonoscopy/polypectomy, R foot heel spur, bilateral cataract removal, mass removed from thyroid-benign. Past Anesthesia/Blood Transfusion Reactions: No Reported Reaction Past Psychological History: No Psychological Hx Reported Smoking Status: Former smoker - Past Family History Father Family Medical History: Myocardial Infarction ([place]) Additional Family Medical History / Comment(s): Father of a [place] at the age of 44yrs. Mother Family Medical History: Coronary Artery Disease (CAD), Dementia, Diabetes Mellitus Additional Family Medical History / Comment(s): Mother at the age of 78yrs. General Exam - General Exam Comments Initial Comments: GENERAL: Patient is well-developed and well-nourished. Patient is nontoxic and well- hydrated and is in mild distress. ENT: Neck is soft and supple. No significant lymphadenopathy is noted. Oropharynx is clear. Moist mucous membranes. Neck has full range of motion without eliciting any pain. EYES: The sclera were anicteric and conjunctiva were pink and moist. Extraocular movements were intact and pupils were equal round and reactive to light. Eyelids were unremarkable. PULMONARY: Unlabored respirations. Good breath sounds bilaterally. No audible rales rhonchi or wheezing was noted. CARDIOVASCULAR: There is a regular rate and rhythm without any murmurs gallops or rubs. ABDOMEN: Soft and nontender with normal bowel sounds. No palpable organomegaly was noted. There is no palpable pulsatile mass. SKIN: Skin is clear with no lesions or rashes and otherwise unremarkable. NEUROLOGIC: Patient is alert and oriented x3. Cranial nerves II through XII are grossly intact. Motor and sensory are also intact. Normal speech, volume and content. Symmetrical smile. MUSCULOSKELETAL: Normal extremities with adequate strength and full range of motion. No lower extremity swelling or edema. No calf tenderness. Palpating the patient between the shoulder blades particular on the left was tender. Patient's trapezius muscle on the left was also tender to palpation. LYMPHATICS: No significant lymphadenopathy is noted PSYCHIATRIC: Normal psychiatric evaluation. 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 Patient's EKG shows no ST segment elevation or depression or T wave abnormalities are noted. Chest x-ray shows no acute abnormality. I will back into reevaluate the patient she no longer had any chest pain. She stated her back pain was considerably better at this time. I spoke with [facility] hospitalist and they agreed to admit the patient admitted the patient wrote admitting orders. I consult cardiology. - Lab Data Result diagrams: 10/04/18 11:16 10/04/18 11:16 Lab Results 10/04/18 10/04/18 10/04/18 Range/Units 11:16 11:16 11:16 WBC 9.0 (3.8-10.6) k/uL RBC 4.12 (3.80-5.40) m/uL Hgb 10.9 L (11.4-16.0) gm/dL Hct 33.5 L (34.0-46.0) % MCV 81.3 (80.0-100.0) fL MCH 26.4 (25.0-35.0) pg MCHC 32.4 (31.0-37.0) g/dL RDW 18.5 H (11.5-15.5) % Plt Count 289 (150-450) k/uL Neutrophils % 78 % Lymphocytes % 11 % Monocytes % 6 % Eosinophils % 4 % Basophils % 1 % Neutrophils # 7.0 (1.3-7.7) k/uL Lymphocytes # 1.0 (1.0-4.8) k/uL Monocytes # 0.5 (0-1.0) k/uL Eosinophils # 0.3 (0-0.7) k/uL Basophils # 0.1 (0-0.2) k/uL Hypochromasia Slight Anisocytosis Slight Microcytosis Slight PT (9.0-12.0) sec INR (<1.2) APTT (22.0-30.0) sec Sodium 139 (137-145) mmol/L Potassium 4.8 (3.5-5.1) mmol/L Chloride 106 (98-107) mmol/L Carbon Dioxide 27 (22-30) mmol/L Anion Gap 6 mmol/L BUN 47 H (7-17) mg/dL Creatinine 1.66 H (0.52-1.04) mg/dL Est GFR (CKD-EPI)AfAm 38 (>60 ml/min/1.73 sqM) Est GFR (CKD-EPI)NonAf 33 (>60 ml/min/1.73 sqM) Glucose 199 H (74-99) mg/dL Calcium 9.7 (8.4-10.2) mg/dL Magnesium 1.8 (1.6-2.3) mg/dL Total Bilirubin 0.9 (0.2-1.3) mg/dL AST 27 (14-36) U/L ALT 37 (9-52) U/L Alkaline Phosphatase 131 H (38-126) U/L Total Creatine Kinase 101 (30-135) U/L CK-MB (CK-2) 0.6 (0.0-2.4) ng/mL CK-MB (CK-2) Rel Index 0.6 Troponin I <0.012 (0.000-0.034) ng/mL Total Protein 6.6 (6.3-8.2) g/dL Albumin 3.6 (3.5-5.0) g/dL 10/04/18 Range/Units 11:16 WBC (3.8-10.6) k/uL RBC (3.80-5.40) m/uL Hgb (11.4-16.0) gm/dL Hct (34.0-46.0) % MCV (80.0-100.0) fL MCH (25.0-35.0) pg MCHC (31.0-37.0) g/dL RDW (11.5-15.5) % Plt Count (150-450) k/uL Neutrophils % % Lymphocytes % % Monocytes % % Eosinophils % % Basophils % % Neutrophils # (1.3-7.7) k/uL Lymphocytes # (1.0-4.8) k/uL Monocytes # (0-1.0) k/uL Eosinophils # (0-0.7) k/uL Basophils # (0-0.2) k/uL Hypochromasia Anisocytosis Microcytosis PT 10.0 (9.0-12.0) sec INR 0.9 (<1.2) APTT 18.9 L (22.0-30.0) sec Sodium (137-145) mmol/L Potassium (3.5-5.1) mmol/L Chloride (98-107) mmol/L Carbon Dioxide (22-30) mmol/L Anion Gap mmol/L BUN (7-17) mg/dL Creatinine (0.52-1.04) mg/dL Est GFR (CKD-EPI)AfAm (>60 ml/min/1.73 sqM) Est GFR (CKD-EPI)NonAf (>60 ml/min/1.73 sqM) Glucose (74-99) mg/dL Calcium (8.4-10.2) mg/dL Magnesium (1.6-2.3) mg/dL Total Bilirubin (0.2-1.3) mg/dL AST (14-36) U/L ALT (9-52) U/L Alkaline Phosphatase (38-126) U/L Total Creatine Kinase (30-135) U/L CK-MB (CK-2) (0.0-2.4) ng/mL CK-MB (CK-2) Rel Index Troponin I (0.000-0.034) ng/mL Total Protein (6.3-8.2) g/dL Albumin (3.5-5.0) g/dL Disposition Clinical Impression: Chest pain, Back pain Disposition: ADMITTED IP TO THIS [facility] Referrals: Reid Mims MD [Primary Care Provider] - 1-2 days Time of Disposition: 12:07
[2018-10-04 11:33] LABS: Anisocytosis Slight; Basophils # (A) 0.1 k/uL (0-0.2); Basophils % (A) 1 %; Eosinophils # (A) 0.3 k/uL (0-0.7); Eosinophils % (A) 4 %; HCT 33.5 % (34.0-46.0); HGB 10.9 gm/dL (11.4-16.0); Hypochromasia Slight; Lymphocytes % (A) 11 %; MCH 26.4 pg (25.0-35.0); MCHC 32.4 g/dL (31.0-37.0); MCV 81.3 fL (80.0-100.0); Mean Platelet Volume 6.4; Microcytosis Slight; Monocytes # (A) 0.5 k/uL (0-1.0); Monocytes % (A) 6 %; Neutrophils % (A) 78 %; Platelet Count 289 k/uL (150-450); RBC 4.12 m/uL (3.80-5.40); RDW 18.5 % (11.5-15.5)
[2018-10-04 11:37] LABS: Albumin 3.6 g/dL (3.5-5.0); Calcium 9.7 mg/dL (8.4-10.2); Magnesium 1.8 mg/dL (1.6-2.3); Potassium 4.8 mmol/L (3.5-5.1); Total Bilirubin 0.9 mg/dL (0.2-1.3); Total Protein 6.6 g/dL (6.3-8.2)
--- NOTE | 2018-10-04 11:42 | XR ---
EXAMINATION TYPE: XR chest 2V DATE OF EXAM: 10/04/2018 COMPARISON: 02/09/2017 HISTORY: Shortness of breath TECHNIQUE: Frontal and lateral views of the chest are obtained. FINDINGS: Scattered senescent parenchymal changes noted. Hyperinflation compatible with COPD. No evidence for infiltrate. No evidence for atelectasis. Heart size is stable. Mediastinal structures are stable and grossly unremarkable. No evidence for hilar prominence. Degenerative changes dorsal spine. IMPRESSION: 1. No evidence for acute pulmonary disease.
[2018-10-04 11:45] LABS: Creatine Kinase 101 U/L (30-135)
[2018-10-04 11:51] LABS: INR 0.9 (<1.2)
[2018-10-04 11:59] LABS: Creatine Kinase MB 0.6 ng/mL (0.0-2.4); Partial Thromboplastin Time 18.9 sec (22.0-30.0); Troponin I <0.012 ng/mL (0.000-0.034)
[2018-10-04] MEDS ORDERED: NITROGLYCERIN SL TABS 0.4 MG TAB SUBLINGUAL PRN (12:08)
[2018-10-04 13:48] VITALS: RESP 18
[2018-10-04] MEDS: NITROGLYCERIN OINT 1 INCH/GM PACKET TOPICAL SCH ×2 (13:48→22:52)
--- NOTE | 2018-10-04 15:20 | P.CRDCN ---
History of Present Illness History of present illness: This is a pleasant 63-year-old female past medical history significant for hypertension, dyslipidemia, diabetes mellitus, chronic kidney disease and is status post liver transplant. She has no history of coronary artery disease and is never undergone cardiac catheterization for any reason. She follows in the office with Dr. Marte. We have been asked to see her in consultation for chest pain. She states this morning while she was standing at the sink doing that this was she felt very sharp burning pain in the mid back region radiating up into bilateral shoulders into the base of her neck posteriorly and through to the chest. This pain lasted for approximately 3-4 seconds and was associated with difficulty in taking a deep breath and mild nausea. She immediately went to lay down on the couch and the pain subsided. She is seen and examined resting comfortably in bed in no acute distress. However at this time my examination when asking her to sit forward and move her head from side to side she has extreme sharp pain down her back and into arms bilaterally. She also complains of frequent nausea and abdominal pain over the past several months. For this reason she saw Dr. Corea and underwent a stress test revealing no evidence of reversible myocardial ischemia. At that time he made adjustments to her antihypertensive regimen as well. EKG reveals sinus mechanism with no acute ST or T wave abnormalities noted. Chest x-ray is negative for acute cardiopulmonary process. Laboratory data reviewed, cardiac enzymes negative 1. Current cardiac medications include Lasix 40 mg twice a day, labetalol 400 mg 3 times a day, losartan 50 mg daily and Procardia 90 mg daily. Most recent stress test with a Lexiscan stress test performed in the office May 2018 which was negative for reversible cardiac ischemia with ejection fraction 70%. Most recent echocardiogram obtained 2016 reveals preserved left ventricular systolic function with ejection fraction 55-60%. At the time of my exam: CONSTITUTIONAL: Denies fever. Denies chills. EYES: Denies blurred vision. Denies vision changes. Denies eye pain. EARS, NOSE, MOUTH & THROAT: Denies headache. Denies sore throat. Denies ear pain. CARDIOVASCULAR: Denies chest pain. Denies shortness of breath. Denies orthopnea. Denies PND. Denies palpitations. RESPIRATORY: Denies cough. GASTROINTESTINAL: Denies abdominal pain. Denies diarrhea. Denies constipation. Denies nausea. Denies vomiting. MUSCULOSKELETAL: Complains of back and neck pain worse with movement. INTEGUMENTARY: Denies pruitis. Denies rash. NEUROLOGIC: Denies numbness. Denies tingling. Denies weakness. PSYCHIATRIC: Denies anxiety. Denies depression. ENDOCRINE: Denies fatigue. Denies weight change. Denies polydipsia. Denies polyurina. GENITOURINARY: Denies burning, hematuria or urgency with micturation. HEMATOLOGIC: Denies history of anemia. Denies bleeding. Blood pressure 115/61 heart rate 72 afebrile maintaining oxygen saturation on room air GENERAL: This is a 63-year-old female in no apparent distress at the time of my examination. Obese. HEENT: Head is atraumatic, normocephalic. Pupils are equal, round. Sclerae anicteric. Conjunctivae are clear. Mucous membranes of the mouth are moist. Neck is supple. There is no jugular venous distention. No carotid bruit is heard. Pain in the neck noted with movement or palpation. LUNGS: Clear to auscultation no wheezes, rales or rhonchi. No chest wall tenderness is noted on palpation or with deep breathing. Pain in the mid back region worse with deep inspiration or movement. HEART: Regular rate and rhythm without murmurs, rubs or gallops. S1 and S2 heard. ABDOMEN: Soft, nontender. Bowel sounds are heard. No organomegaly noted. EXTREMITIES: No evidence of peripheral edema and no calf tenderness noted. VASCULAR: Radial and dorsalis pedis pulses palpated, no evidence of clubbing. NEUROLOGIC: Patient is awake, alert and oriented x3. ASSESSMENT Chest pain, atypical for angina. Musculoskeletal and pleuritic in nature. Musculoskeletal type strain torso Hypertension Dyslipidemia Diabetes mellitus History of liver transplantation Chronic kidney disease, GFR 33. Stage IIIB PLAN Symptoms are very atypical for angina. Continue to obtain serial cardiac enzymes rule out an acute coronary event. Ongoing medical management and consider possibly anti-inflammatory treatment of pain. Further recommendations to follow based upon clinical course. Thank you kindly for this consultation. Nurse Practitioner note has been reviewed, I agree with a documented findings and plan of care. Patient was seen and examined. 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 History of Any Multi-Drug Resistant Organisms: None Reported Past Surgical History: Bowel Resection, Breast Surgery, Cholecystectomy, Hernia Repair, Hysterectomy, Tonsillectomy, Tubal Ligation Additional Past Surgical History / Comment(s): 2013 liver transplant at [facility], bowel resection d/t strangulation, L breast bx/lumpectomy-benign, abdominal hernia repair x2, R carpel tunnel release, colonoscopy/polypectomy, R foot heel spur, bilateral cataract removal with lens implants. Past Anesthesia/Blood Transfusion Reactions: No Reported Reaction Smoking Status: Former smoker - Past Family History Father Family Medical History: Myocardial Infarction (OR) Additional Family Medical History / Comment(s): Father of a OR at the age of 44yrs. Mother Family Medical History: Coronary Artery Disease (CAD), Dementia, Diabetes Mellitus Additional Family Medical History / Comment(s): Mother at the age of 78yrs. Medications and Allergies Home Medications Medication Instructions Recorded Confirmed Type Calcium Carbonate/Vitamin D3 1 tab PO DAILY@1700 06/01/16 10/04/18 History [Caltrate 600 Plus D3 Tablet] Labetalol [Trandate] 400 mg PO TID@0600,1400,2100 06/01/16 10/04/18 History Lacosamide [Vimpat] 200 mg PO BID@0600,1700 06/01/16 10/04/18 History NIFEdipine [Procardia XL] 90 mg PO HS 06/01/16 10/04/18 History Omeprazole 20 mg PO BID@0600,1700 06/01/16 10/04/18 History Thiamine [Vitamin B-1] 100 mg PO DAILY@0600 06/01/16 10/04/18 History Insulin Aspart [NovoLOG Flexpen] 15 units SQ AC-TID 02/09/17 10/04/18 History Albuterol Inhaler [Ventolin Hfa 1 - 2 puff INHALATION RT-Q6H PRN 10/04/18 History Inhaler] Cholecalciferol (Vitamin D3) 2,000 unit PO DAILY@1700 10/04/18 10/04/18 History [Vitamin D3] Furosemide [Lasix] 40 mg PO BID@0700,1400 10/04/18 10/04/18 History Insulin Aspart [NovoLOG Flexpen] See Protocol SQ AC-TID 10/04/18 10/04/18 History Insulin Degludec [Tresiba 60 units SQ HS 10/04/18 10/04/18 History Flextouch U-100] Losartan [Cozaar] 50 mg PO HS 10/04/18 10/04/18 History Magnesium Oxide [Mag-Ox] 800 mg PO BID@0700,1400 10/04/18 10/04/18 History Montelukast [Singulair] 10 mg PO HS 10/04/18 10/04/18 History Mycophenolate Mofetil [Cellcept] 250 mg PO BID 10/04/18 10/04/18 History Pioglitazone [Actos] 30 mg PO DAILY@0700 10/04/18 10/04/18 History Semaglutide [Ozempic] 2.5 mg SQ TU 10/04/18 10/04/18 History Vitamin D2 39058 Units 10,000 units PO Q14D 10/04/18 10/04/18 History cycloSPORINE, MODIFIED [Neoral] 50 mg PO HS 10/04/18 10/04/18 History cycloSPORINE, MODIFIED [Neoral] 75 mg PO DAILY 10/04/18 10/04/18 History metFORMIN HCL [Glucophage] 500 mg PO BID@0700,1400 10/04/18 10/04/18 History Allergies Allergy/AdvReac Type Severity Reaction Status Date / Time venom-honey bee Allergy Severe Swelling Verified 10/04/18 11:31 [bee venom (honey bee)] ciprofloxacin Allergy Rash/Hives Verified 10/04/18 11:31 codeine Allergy Rash/Hives Verified 10/04/18 11:31 erythromycin base Allergy Rash/Hives Verified 10/04/18 11:31 levofloxacin Allergy Rash/Hives Verified 10/04/18 11:31 lisinopril Allergy Rash/Hives Verified 10/04/18 11:31 metformin Allergy Swelling Verified 10/04/18 11:31 of throat moxifloxacin Allergy Rash/Hives Verified 10/04/18 11:31 Penicillins Allergy hives, Verified 10/04/18 11:31 swelling plum Allergy Unknown Verified 10/04/18 11:31 rofecoxib Allergy Rash/Hives Verified 10/04/18 11:31 Tetracyclines Allergy Rash/Hives Verified 10/04/18 11:31 Physical Exam Vitals: Vital Signs Temp Pulse Pulse Resp BP Pulse Ox 10/04/18 14:19 98.3 F 72 18 115/61 98 10/04/18 14:00 72 18 115/61 98 10/04/18 13:46 72 18 115/61 98 10/04/18 13:30 72 115/61 98 10/04/18 13:00 71 107/57 97 10/04/18 12:30 67 104/54 98 10/04/18 12:00 72 120/63 99 10/04/18 11:34 79 16 10/04/18 11:30 74 114/56 98 10/04/18 11:00 98 10/04/18 10:59 98.3 F 79 18 115/57 97 10/04/18 10:57 96 Intake and Output 10/04/18 10/04/18 10/04/18 06:59 14:59 22:59 Other: Voiding Method Toilet # Voids 1 Weight 106.141 kg Results 10/04/18 11:16 10/04/18 11:16 Cardiac Enzymes 10/04/18 10/04/18 Range/Units 11:16 11:16 AST 27 (14-36) U/L CK-MB (CK-2) 0.6 (0.0-2.4) ng/mL Troponin I <0.012 (0.000-0.034) ng/mL Coagulation 10/04/18 Range/Units 11:16 PT 10.0 (9.0-12.0) sec APTT 18.9 L (22.0-30.0) sec CBC 10/04/18 Range/Units 11:16 WBC 9.0 (3.8-10.6) k/uL RBC 4.12 (3.80-5.40) m/uL Hgb 10.9 L (11.4-16.0) gm/dL Hct 33.5 L (34.0-46.0) % Plt Count 289 (150-450) k/uL Comprehensive Metabolic Panel 10/04/18 Range/Units 11:16 Sodium 139 (137-145) mmol/L Potassium 4.8 (3.5-5.1) mmol/L Chloride 106 (98-107) mmol/L Carbon Dioxide 27 (22-30) mmol/L BUN 47 H (7-17) mg/dL Creatinine 1.66 H (0.52-1.04) mg/dL Glucose 199 H (74-99) mg/dL Calcium 9.7 (8.4-10.2) mg/dL AST 27 (14-36) U/L ALT 37 (9-52) U/L Alkaline Phosphatase 131 H (38-126) U/L Total Protein 6.6 (6.3-8.2) g/dL Albumin 3.6 (3.5-5.0) g/dL Current Medications Generic Name Dose Route Start Last Admin Trade Name Freq PRN Reason Stop Dose Admin Aspirin 325 mg 10/05/18 09:00 Aspirin PO DAILY MAGDI Nitroglycerin 1 inch 10/04/18 18:00 10/04/18 13:48 Nitro-Bid Oint TOPICAL 1 inch Q6HR MAGDI Administration Nitroglycerin 0.4 mg 10/04/18 12:08 Nitrostat SUBLINGUAL Q5M PRN Chest Pain Intake and Output 10/04/18 10/04/18 10/04/18 06:59 14:59 22:59 Other: Voiding Method Toilet # Voids 1 Weight 106.141 kg Patient Weight 10/05/18 06:59 Weight 106.141 kg 10/04/18 11:16 10/04/18 11:16
[2018-10-04 16:43] LABS: Glucose,Whole Blood 71 mg/dL (75-99)
[2018-10-04] MEDS: INSULIN ASPART (NovoLOG) 100 UNIT/ML VIAL SQ SCH (17:06)
[2018-10-04 17:45] LABS: Creatine Kinase 80 U/L (30-135)
[2018-10-04] MEDS: PANTOPRAZOLE 40 MG TABLET PO SCH (17:46)
[2018-10-04] MEDS: LACOSAMIDE 50 MG TABLET PO SCH (17:46)
[2018-10-04 17:57] LABS: Creatine Kinase MB 0.6 ng/mL (0.0-2.4); Troponin I <0.012 ng/mL (0.000-0.034)
[2018-10-04] MEDS ORDERED: HYDROmorphone 0.5 MG/0.5 ML SYRINGE IVP PRN (19:55)
[2018-10-04] MEDS: MYCOPHENOLATE MOFETIL 250 MG CAP PO SCH (20:04)
[2018-10-04] MEDS: LABETALOL 200 MG TAB PO SCH (20:08)
[2018-10-04 20:50] LABS: Glucose,Whole Blood 77 mg/dL (75-99)
[2018-10-04] MEDS ORDERED: NIFEdipine XL 90 MG TAB.ER.24 PO SCH (21:00)
[2018-10-04] MEDS ORDERED: MONTELUKAST 10 MG TAB PO SCH (21:00)
[2018-10-04] MEDS ORDERED: LOSARTAN 50 MG TAB PO SCH (21:00)
[2018-10-04] MEDS ORDERED: INSULIN DETEMIR (LEVEMIR) 100 UNIT/ML SYR SQ SCH (21:00)
--- NOTE | 2018-10-04 21:58 | P.HPIM ---
History of Present Illness H&P Date: 10/04/18 Chief Complaint: Upper back pain and neck pain Patient is a 61-year-old female with a known history of hypertension, insulin- dependent diabetes type 2, history of liver cirrhosis due to MCCLURE with liver transplant in 2013, rheumatoid arthritis, seizure disorder and history of migraine headaches, PTSD and other multiple medical problems came to ER with complaints of sharp pain in the upper back. Patient says that she was standing at the sink this morning and suddenly she felt sharp burning pain in the upper back and radiated to the neck and shoulders. Patient also felt left arm numbness. Pale last about 3-4 seconds. No leg weakness or arm weakness. Denied any chest pain. Patient does have shortness of breath along with pain. No associated nausea vomiting or diaphoresis. Patient felt some lightheadedness. No dizziness. She immediately laid in the couch and the pain subsided. Patient otherwise denied any injury. No recent illnesses. No cough or sputum production. No history of coronary artery disease. 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 Patient did have stress test in July 2018. No history of cardiac catheterization or stent placement. No fever no chills. Chest x-ray showed no acute cardio pulmonary process EKG showed normal sinus rhythm. No ST T wave changes. Troponin 1 negative Review of Systems Constitutional: Patient denies any fever or chills . No generalized weakness or weight loss. Abdomen: Patient denied nausea vomiting and diarrhea and abdominal pain. Cardiovascular: Patient denies any chest pain or short of breath no palpitations. Respiratory: patient denied any cough is from production. No shortness of breath Neurologic: Patient denied any numbness or tingling headache. Patient does have upper back pain and neck pain. Musculoskeletal: Patient denies any complaints of joint swelling or deformity. Skin: Negative Psychiatric: Negative Endocrine: No heat or cold intolerance. No recent weight gain. Genitourinary: No dysuria or hematuria. All other 14 point ROS negative except the above Past Medical History Past Medical History: COPD, Diabetes Mellitus, GERD/Reflux, Hyperlipidemia, Hypertension, Liver Disease, Renal Disease, Rheumatoid Arthritis (RA), Seizure Disorder, Skin Disorder Additional Past Medical History / Comment(s): Cirrhosis with liver pt states d/ t [facility] with liver transplant 2013, hepatic encephalopathy, IDDM type II, numbness/tingling L arm, CKD stage III, anemia, last seizure 06/20/14 or 12/2014, hiatal hernia, PUD, colitis, eczema, migraines, scoliosis, UTIs, colon polyps benign, varicose veins bilaterally, obesity, CMV blood infection. History of Any Multi-Drug Resistant Organisms: None Reported Past Surgical History: Bowel Resection, Breast Surgery, Cholecystectomy, Hernia Repair, Hysterectomy, Tonsillectomy, Tubal Ligation Additional Past Surgical History / Comment(s): 2013 liver transplant at [facility], bowel resection d/t strangulation, L breast bx/lumpectomy-benign, abdominal hernia repair x2, R carpel tunnel release, colonoscopy/polypectomy, R foot heel spur, bilateral cataract removal with lens implants. Past Anesthesia/Blood Transfusion Reactions: No Reported Reaction Smoking Status: Former smoker - Past Family History Father Family Medical History: Myocardial Infarction ([place]) Additional Family Medical History / Comment(s): Father of a DE at the age of 44yrs. Mother Family Medical History: Coronary Artery Disease (CAD), Dementia, Diabetes Mellitus Additional Family Medical History / Comment(s): Mother at the age of 78yrs. Medications and Allergies Home Medications Medication Instructions Recorded Confirmed Type Calcium Carbonate/Vitamin D3 1 tab PO DAILY@1700 06/01/16 10/04/18 History [Caltrate 600 Plus D3 Tablet] Labetalol [Trandate] 400 mg PO TID@0600,1400,2100 06/01/16 10/04/18 History Lacosamide [Vimpat] 200 mg PO BID@0600,1700 06/01/16 10/04/18 History NIFEdipine [Procardia XL] 90 mg PO HS 06/01/16 10/04/18 History Omeprazole 20 mg PO BID@0600,1700 06/01/16 10/04/18 History Thiamine [Vitamin B-1] 100 mg PO DAILY@0600 06/01/16 10/04/18 History Insulin Aspart [NovoLOG Flexpen] 15 units SQ AC-TID 02/09/17 10/04/18 History Albuterol Inhaler [Ventolin Hfa 1 - 2 puff INHALATION RT-Q6H PRN 10/04/18 History Inhaler] Cholecalciferol (Vitamin D3) 2,000 unit PO DAILY@1700 10/04/18 10/04/18 History [Vitamin D3] Furosemide [Lasix] 40 mg PO BID@0700,1400 10/04/18 10/04/18 History Insulin Aspart [NovoLOG Flexpen] See Protocol SQ AC-TID 10/04/18 10/04/18 History Insulin Degludec [Tresiba 60 units SQ HS 10/04/18 10/04/18 History Flextouch U-100] Losartan [Cozaar] 50 mg PO HS 10/04/18 10/04/18 History Magnesium Oxide [Mag-Ox] 800 mg PO BID@0700,1400 10/04/18 10/04/18 History Montelukast [Singulair] 10 mg PO HS 10/04/18 10/04/18 History Mycophenolate Mofetil [Cellcept] 250 mg PO BID 10/04/18 10/04/18 History Pioglitazone [Actos] 30 mg PO DAILY@0700 10/04/18 10/04/18 History Semaglutide [Ozempic] 2.5 mg SQ TU 10/04/18 10/04/18 History Vitamin D2 86629 Units 10,000 units PO Q14D 10/04/18 10/04/18 History cycloSPORINE, MODIFIED [Neoral] 50 mg PO HS 10/04/18 10/04/18 History cycloSPORINE, MODIFIED [Neoral] 75 mg PO DAILY 10/04/18 10/04/18 History metFORMIN HCL [Glucophage] 500 mg PO BID@0700,1400 10/04/18 10/04/18 History Allergies Allergy/AdvReac Type Severity Reaction Status Date / Time venom-honey bee Allergy Severe Swelling Verified 10/04/18 11:31 [bee venom (honey bee)] ciprofloxacin Allergy Rash/Hives Verified 10/04/18 11:31 codeine Allergy Rash/Hives Verified 10/04/18 11:31 erythromycin base Allergy Rash/Hives Verified 10/04/18 11:31 levofloxacin Allergy Rash/Hives Verified 10/04/18 11:31 lisinopril Allergy Rash/Hives Verified 10/04/18 11:31 metformin Allergy Swelling Verified 10/04/18 11:31 of throat moxifloxacin Allergy Rash/Hives Verified 10/04/18 11:31 Penicillins Allergy hives, Verified 10/04/18 11:31 swelling plum Allergy Unknown Verified 10/04/18 11:31 rofecoxib Allergy Rash/Hives Verified 10/04/18 11:31 Tetracyclines Allergy Rash/Hives Verified 10/04/18 11:31 Physical Exam Vitals: Vital Signs Temp Pulse Pulse Resp BP Pulse Ox 10/04/18 14:00 72 18 115/61 98 10/04/18 13:46 72 18 115/61 98 10/04/18 13:30 72 115/61 98 10/04/18 13:00 71 107/57 97 10/04/18 12:30 67 104/54 98 10/04/18 12:00 72 120/63 99 10/04/18 11:34 79 16 10/04/18 11:30 74 114/56 98 10/04/18 11:00 98 10/04/18 10:59 98.3 F 79 18 115/57 97 10/04/18 10:57 96 Intake and Output 10/03/18 10/04/18 10/04/18 22:59 06:59 14:59 Other: Weight 106.141 kg PHYSICAL EXAMINATION: Patient is lying in the bed comfortably, no acute distress, awake alert and oriented.. HEENT: Normocephalic. Neck is supple. Pupils reactive. Nostrils clear. Oral cavity is moist. Ears reveal no drainage. Neck reveals no JVD, carotid bruits, or thyromegaly. CHEST EXAMINATION: Trachea is central. No chest wall tenderness. Symmetrical expansion. Lung martinez clear to auscultation and percussion. CARDIAC: Normal S1, S2 with no gallops. No murmurs ABDOMEN: Soft. Bowel sounds normal. No organomegaly. No abdominal bruits. Extremities: reveal no edema. No clubbing or cyanosis Neurologically awake, alert, oriented x3 with well-coordinated movements. No focal deficits noted Skin: No rash or skin lesions. Psychiatric: Coperative. Nonsuicidal Musculoskeletal: No joint swelling or deformity. Normal range of motion. Results CBC & Chem 7: 10/04/18 11:16 10/04/18 11:16 Labs: Abnormal Lab Results - Last 24 Hours (Table) 10/04/18 10/04/18 10/04/18 Range/Units 11:16 11:16 11:16 Hgb 10.9 L (11.4-16.0) gm/dL Hct 33.5 L (34.0-46.0) % RDW 18.5 H (11.5-15.5) % APTT 18.9 L (22.0-30.0) sec BUN 47 H (7-17) mg/dL Creatinine 1.66 H (0.52-1.04) mg/dL Glucose 199 H (74-99) mg/dL Alkaline Phosphatase 131 H (38-126) U/L Thrombosis Risk Factor Assmnt - DVT/VTE Prophylaxis DVT/VTE Prophylaxis: Pharmacologic Prophylaxis ordered - Choose All That Apply Any of the Below Risk Factors Present?: Yes Each Factor Represents 1 point: Abnormal pulmonary function (COPD), Obesity ( BMI >25) Other Risk Factors: Yes Each Risk Factor Represents 2 Points: Age 61-74 years Other congenital or acquired thrombophilia - If yes, enter type in comment: No Thrombosis Risk Factor Assessment Total Risk Factor Score: 4 Thrombosis Risk Factor Assessment Level: Moderate Risk Assessment and Plan Assessment: Upper back pain and neck pain radiating to the shoulder. Likely due to musculoskeletal causes Atypical chest pain. Rule out ACS. Diabetes type 2 insulin-dependent Hypertension Hyperlipidemia History of liver transplant due to Mcclure in 2013 Chronic kidney disease stage III GERD Rheumatoid arthritis Seizure disorder Scoliosis History of migraine headaches Bilateral varicose veins Morbid obesity BMI 45.7 DVT prophylaxis with heparin subcu Previous history of smoking Plan: Patient be continued on telemetry monitoring. Serial EKGs and troponins. Patient will be converted on Dilaudid IV and also will start on Toradol 30 mg every 6 for one day. We will add skeletal muscle relaxants as needed. X-ray of the cervical spine. Continue the home medication and insulin dosing. Cardiology was consulted for evaluation. Further recommendations based on the clinical course. Time with Patient: Greater than 30
[2018-10-04] MEDS: HEPARIN SODIUM,PORCINE 5,000 UNIT/ML 1 ML VIAL SQ SCH (22:58)
[2018-10-04] MEDS: KETOROLAC 30 MG/ML 1 ML VIAL IVP SCH (22:59)
[2018-10-05] MEDS ORDERED: KETOROLAC 30 MG/ML 1 ML VIAL IM SCH
[2018-10-05 00:10] LABS: Creatine Kinase 66 U/L (30-135)
[2018-10-05 00:23] LABS: Creatine Kinase MB 0.4 ng/mL (0.0-2.4); Troponin I <0.012 ng/mL (0.000-0.034)
[2018-10-05] MEDS: NITROGLYCERIN OINT 1 INCH/GM PACKET TOPICAL SCH ×2 (03:19→13:02)
[2018-10-05] MEDS: PANTOPRAZOLE 40 MG TABLET PO SCH (06:33)
[2018-10-05] MEDS: LACOSAMIDE 50 MG TABLET PO SCH (06:33)
[2018-10-05] MEDS: MAGNESIUM OXIDE 400 MG TAB PO SCH ×2 (06:34→13:07)
[2018-10-05] MEDS: FUROSEMIDE 40 MG TAB PO SCH ×2 (06:34→13:06)
[2018-10-05] MEDS: KETOROLAC 30 MG/ML 1 ML VIAL IVP SCH ×2 (06:34→13:06)
[2018-10-05] MEDS: LABETALOL 200 MG TAB PO SCH ×2 (06:34→13:07)
[2018-10-05] MEDS ORDERED: PIOGLITAZONE 30 MG TAB PO SCH (07:00)
[2018-10-05 07:43] LABS: Calcium 9.6 mg/dL (8.4-10.2); Potassium 4.6 mmol/L (3.5-5.1)
[2018-10-05] MEDS: INSULIN ASPART (NovoLOG) 100 UNIT/ML VIAL SQ SCH ×2 (08:50→13:07)
[2018-10-05] MEDS: HEPARIN SODIUM,PORCINE 5,000 UNIT/ML 1 ML VIAL SQ SCH (08:54)
[2018-10-05] MEDS: MYCOPHENOLATE MOFETIL 250 MG CAP PO SCH (08:55)
[2018-10-05] MEDS ORDERED: ASPIRIN 325 MG TAB PO SCH (09:00)
--- NOTE | 2018-10-05 09:01 | P.PN ---
Subjective Progress Note Date: 10/05/18 Principal diagnosis: Chest pain This is a pleasant 63-year-old female patient who sees Dr. Corea in the office as an outpatient with a past medical history significant for diabetes , hypertension, dyslipidemia, and chronic kidney disease, and she is status post liver transplant, was admitted to the hospital with a chest discomfort and ruled out for acute coronary event. The EKG did not show any significant ST or T-wave abnormalities concerning for ischemia. The cardiac enzymes were checked and came in to be unremarkable. The patient underwent a stress test in June 2018 and that came in to be unremarkable for ischemia. On follow-up with her today, she seems to be asymptomatic from the cardiovascular standpoint overview. She stated that she has been up and around walking in the hallway without any symptoms of chest pain or chest discomfort. From a cardiovascular standpoint of view, the patient can be discharged home. Objective - Vital Signs Vital signs: Vital Signs Temp 97.9 F 10/05/18 07:59 Pulse 67 10/05/18 07:59 Resp 18 10/05/18 07:59 BP 130/71 10/05/18 07:59 Pulse Ox 98 10/05/18 07:59 Intake & Output 10/04/18 10/05/18 10/05/18 18:59 06:59 18:59 Weight 106.141 kg Other: Voiding Method Toilet Toilet # Voids 1 1 - Constitutional General appearance: Present: no acute distress - Respiratory Respiratory: bilateral: CTA - Cardiovascular Rhythm: regular Heart sounds: normal: S1, S2 - Labs CBC & Chem 7: 10/04/18 11:16 10/05/18 06:50 Labs: Abnormal Lab Results - Last 24 Hours (Table) 10/04/18 10/04/18 10/04/18 Range/Units 11:16 11:16 11:16 Hgb 10.9 L (11.4-16.0) gm/dL Hct 33.5 L (34.0-46.0) % RDW 18.5 H (11.5-15.5) % APTT 18.9 L (22.0-30.0) sec Carbon Dioxide (22-30) mmol/L BUN 47 H (7-17) mg/dL Creatinine 1.66 H (0.52-1.04) mg/dL Glucose 199 H (74-99) mg/dL POC Glucose (mg/dL) (75-99) mg/dL Alkaline Phosphatase 131 H (38-126) U/L Triglycerides (<150) mg/dL 10/04/18 10/05/18 Range/Units 16:41 06:50 Hgb (11.4-16.0) gm/dL Hct (34.0-46.0) % RDW (11.5-15.5) % APTT (22.0-30.0) sec Carbon Dioxide 31 H (22-30) mmol/L BUN 47 H (7-17) mg/dL Creatinine 1.84 H (0.52-1.04) mg/dL Glucose 113 H (74-99) mg/dL POC Glucose (mg/dL) 71 L (75-99) mg/dL Alkaline Phosphatase (38-126) U/L Triglycerides 173 H (<150) mg/dL Assessment and Plan Assessment: Assessment #1 atypical chest discomfort which has resolved #2 multiple risk factors for CAD including diabetes, hypertension, dyslipidemia Plan #1 from the cardiovascular standpoint of view, the patient can be discharged home #2 follow-up with Dr. Corea as an outpatient. Thank you for allowing us participate in her care
--- NOTE | 2018-10-05 11:06 | XR ---
EXAMINATION TYPE: XR cervical spine comp DATE OF EXAM: 10/05/2018 COMPARISON: None HISTORY: Neck pain TECHNIQUE: Five-view cervical spine supplemental thoracic swimmer's view FINDINGS: Vertebral body alignment appears normal.. The prevertebral space is normal. Disc height and vertebral body heights are preserved. Shoulders prevent good visualization on the lateral view but i s supplemented with a transthoracic swimmer's view. On the oblique views lower Foramen are patent. Od ontoid is mild limitation due to occiput. IMPRESSION: 1. No acute osseous abnormality cervical spine
[2018-10-05 11:59] LABS: Glucose,Whole Blood 124 mg/dL (75-99)
[2018-10-05 11:59] LABS: Glucose,Whole Blood 147 mg/dL (75-99)
[2018-10-05 12:31] VITALS: BP 136/60; TEMP 97.8
[2018-10-05 15:24] VITALS: PULSE 79
--- NOTE | 2018-10-07 00:52 | P.DS ---
Providers Date of admission: 10/04/18 12:16 Expected date of discharge: 10/05/18 Attending physician: Deangelo Yan Consults: 10/04/18 12:08 Consult Physician Urgent Consulting Provider: [facility] Consult Reason/Comments: Chest pain, back pain Do you want consulting provider notified?: Yes Primary care physician: Felicita Mathews [facility] Course: Discharge diagnosis Upper back pain and neck pain radiating to the shoulder. Likely due to musculoskeletal causes. Resolving now. Atypical chest pain. Ruled out ACS. Recent negative stress test in June 2018 Diabetes type 2 insulin-dependent Hypertension Hyperlipidemia History of liver transplant due to Faye in 2013 Chronic kidney disease stage III GERD Rheumatoid arthritis Seizure disorder Scoliosis History of migraine headaches Bilateral varicose veins Morbid obesity BMI 45.7 DVT prophylaxis with heparin subcu Previous history of smoking Hospital course Patient is a 61-year-old female with a known history of hypertension, insulin- dependent diabetes type 2, history of liver cirrhosis due to FAYE with liver transplant in 2013, rheumatoid arthritis, seizure disorder and history of migraine headaches, PTSD and other multiple medical problems came to ER with complaints of sharp pain in the upper back. Patient says that she was standing at the sink this morning and suddenly she felt sharp burning pain in the upper back and radiated to the neck and shoulders. Patient also felt left arm numbness. Pale last about 3-4 seconds. No leg weakness or arm weakness. Denied any chest pain. Patient does have shortness of breath along with pain. No associated nausea vomiting or diaphoresis. Patient felt some lightheadedness. No dizziness. She immediately laid in the couch and the pain subsided. Patient otherwise denied any injury. No recent illnesses. No cough or sputum production. No history of coronary artery disease. 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 Patient did have stress test in July 2018. No history of cardiac catheterization or stent placement. No fever no chills. Chest x-ray showed no acute cardio pulmonary process EKG showed normal sinus rhythm. No ST T wave changes. Troponin 3 negative 10/05/2018 Patient be continued on telemetry monitoring. Serial EKGs and troponins negative. Patient was continued on Dilaudid IV and also will start on Toradol 30 mg every 6 for one day. Neck pain is much improved. Patient is able to ER minute in the hallway without much pain.. X-ray of the cervical spine is negative for an acute fractures.. Continued the home medication and insulin dosing. Patient was seen by cardiology and patient did have negative stress test in June 2018. No further workup recommended at this time. Otherwise patient is stable to be discharged home. Discharge physical examination was done and vitals reviewed. Patient Condition at Discharge: Fair Plan - Discharge Summary Discharge Rx Participant: No New Discharge Prescriptions: Continue Calcium Carbonate/Vitamin D3 [Caltrate 600 Plus D3 Tablet] 1 tab PO DAILY@ 1700 Lacosamide [Vimpat] 200 mg PO BID@0600,1700 Thiamine [Vitamin B-1] 100 mg PO DAILY@0600 Omeprazole 20 mg PO BID@0600,1700 NIFEdipine [Procardia XL] 90 mg PO HS Labetalol [Trandate] 400 mg PO TID@0600,1400,2100 Insulin Aspart [NovoLOG Flexpen] 15 units SQ AC-TID Semaglutide [Ozempic] 2.5 mg SQ TU Insulin Degludec [Tresiba Flextouch U-100] 60 units SQ HS Insulin Aspart [NovoLOG Flexpen] See Protocol SQ AC-TID Albuterol Inhaler [Ventolin Hfa Inhaler] 1 - 2 puff INHALATION RT-Q6H PRN PRN Reason: Shortness Of Breath Cholecalciferol (Vitamin D3) [Vitamin D3] 2,000 unit PO DAILY@1700 Pioglitazone [Actos] 30 mg PO DAILY@0700 Montelukast [Singulair] 10 mg PO HS metFORMIN HCL [Glucophage] 500 mg PO BID@0700,1400 Losartan [Cozaar] 50 mg PO HS Magnesium Oxide [Mag-Ox] 800 mg PO BID@0700,1400 cycloSPORINE, MODIFIED [Neoral] 50 mg PO HS cycloSPORINE, MODIFIED [Neoral] 75 mg PO DAILY Furosemide [Lasix] 40 mg PO BID@0700,1400 Mycophenolate Mofetil [Cellcept] 250 mg PO BID Vitamin D2 62405 Units 10,000 units PO Q14D Discharge Medication List Calcium Carbonate/Vitamin D3 [Caltrate 600 Plus D3 Tablet] 1 tab PO DAILY@1700 06/01/16 [History] Labetalol [Trandate] 400 mg PO TID@0600,1400,2100 06/01/16 [History] Lacosamide [Vimpat] 200 mg PO BID@0600,1700 06/01/16 [History] NIFEdipine [Procardia XL] 90 mg PO HS 06/01/16 [History] Omeprazole 20 mg PO BID@0600,1700 06/01/16 [History] Thiamine [Vitamin B-1] 100 mg PO DAILY@0600 06/01/16 [History] Insulin Aspart [NovoLOG Flexpen] 15 units SQ AC-TID 02/09/17 [History] Albuterol Inhaler [Ventolin Hfa Inhaler] 1 - 2 puff INHALATION RT-Q6H PRN [History] Cholecalciferol (Vitamin D3) [Vitamin D3] 2,000 unit PO DAILY@1700 10/04/18 [ History] Furosemide [Lasix] 40 mg PO BID@0700,1400 10/04/18 [History] Insulin Aspart [NovoLOG Flexpen] See Protocol SQ AC-TID 10/04/18 [History] Insulin Degludec [Tresiba Flextouch U-100] 60 units SQ HS 10/04/18 [History] Losartan [Cozaar] 50 mg PO HS 10/04/18 [History] Magnesium Oxide [Mag-Ox] 800 mg PO BID@0700,1400 10/04/18 [History] Montelukast [Singulair] 10 mg PO HS 10/04/18 [History] Mycophenolate Mofetil [Cellcept] 250 mg PO BID 10/04/18 [History] Pioglitazone [Actos] 30 mg PO DAILY@0700 10/04/18 [History] Semaglutide [Ozempic] 2.5 mg SQ TU 10/04/18 [History] Vitamin D2 11767 Units 10,000 units PO Q14D 10/04/18 [History] cycloSPORINE, MODIFIED [Neoral] 50 mg PO HS 10/04/18 [History] cycloSPORINE, MODIFIED [Neoral] 75 mg PO DAILY 10/04/18 [History] metFORMIN HCL [Glucophage] 500 mg PO BID@0700,1400 10/04/18 [History] Follow up Appointment(s)/Referral(s): Saeid Corea MD [STAFF PHYSICIAN] - 10/15/18 10:45 am Reid Mims MD [Primary Care Provider] - 1-2 days Patient Instructions/Handouts: Chest Pain (DC) Discharge Disposition: HOME SELF-CARE
== END 2018-10-05 15:15 | disposition home or self-care (01) ==
LOC: EC 10:44 → 1SOBS 12:16
PROVIDERS: ADMIT Hospitalist; ATTEND Hospitalist
DX: R07.89 Other chest pain (principal); M54.89 Other dorsalgia; M54.2 Cervicalgia; R20.0 Anesthesia of skin; R42 Dizziness and giddiness; E11.22 Type 2 diabetes mellitus with diabetic chronic kidney disease; E66.01 Morbid (severe) obesity due to excess calories; Z68.42 Body mass index [BMI] 45.0-49.9, adult; N18.3 Chronic kidney disease, stage 3 (moderate); Z94.4 Liver transplant status; E78.5 Hyperlipidemia, unspecified; F43.10 Post-traumatic stress disorder, unspecified; G40.909 Epilepsy, unspecified, not intractable, without status epilepticus; I12.9 Hypertensive chronic kidney disease with stage 1 through stage 4 chronic kidney disease, or unspecified chronic kidney disease; I83.93 Asymptomatic varicose veins of bilateral lower extremities; J44.9 Chronic obstructive pulmonary disease, unspecified; K21.9 Gastro-esophageal reflux disease without esophagitis; K74.69 Other cirrhosis of liver; K75.81 Nonalcoholic steatohepatitis (NASH); M06.9 Rheumatoid arthritis, unspecified; M41.9 Scoliosis, unspecified; Z96.1 Presence of intraocular lens; Z98.41 Cataract extraction status, right eye; Z98.42 Cataract extraction status, left eye; Z79.4 Long term (current) use of insulin; Z79.899 Other long term (current) drug therapy; Z82.49 Family history of ischemic heart disease and other diseases of the circulatory system; Z83.3 Family history of diabetes mellitus; Z87.11 Personal history of peptic ulcer disease; Z87.891 Personal history of nicotine dependence; Z90.49 Acquired absence of other specified parts of digestive tract; Z90.710 Acquired absence of both cervix and uterus
CPT/HCPCS: 96372 ×2; 96375; 96376 ×2; 96374; 99285; 36415; 93005; 80061; 80053; 80048; 82550; 82553; 83735; 84484; 85025; 85610; 85730; 72050; 71046; G0378 ×2; J1644 ×2; J7517 ×2; J1885 ×2; J7515; J1170

== ENCOUNTER → 2019-02-21 | Outpatient (CLI) | payer MEDICARE, BC ==
--- NOTE | 2019-02-21 23:43 | CONS ---
CONSULTATION DATE OF SERVICE: 02/21/2019. This patient is a 63-year-old lady who has been evaluated in the sleep center for possible obstructive sleep apnea-hypopnea syndrome. HISTORY OF PRESENT ILLNESS/SLEEP-WAKE EVALUATION: Patient's usual sleep schedule is from 11 p.m. to 5 a.m. basically 7 days a week. She does have problems with falling asleep, although no TV in bedroom. She usually sleeps on the side position. According to her , she snores and she wakes up every night about 3 a.m. with episodes of nocturia at that time. In the morning she wakes up tired, falling asleep during the day. [place] Sleepiness Scale is significantly increased at 16. Usually she does not feel refreshed after naps. She does not see vivid dreams after naps, either. PAST MEDICAL HISTORY: Past medical history is positive for: 1. Several pneumonias. 2. COPD. 3. Chronic kidney disease, stage III. 4. History of MCCLURE with liver transplant in 2013. PAST SURGICAL HISTORY: 1. Bowel resection for strangulation. 2. Liver transplant in 2013 for MCCLURE. 3. Hernia repair in 2015. MEDICATIONS: 1. Montelukast. 2. Nifedipine. 3. Omeprazole. 4. Pioglitazone. 5. Ventolin. 6. Tresiba. 7. Ozempic. 8. Ferrous sulfate. 9. Caltrate. 10.CellCept. 11.Cyclosporine. 12.Furosemide. 13.Labetalol. 14.Losartan. 15.Magnesium supplement. SOCIAL HISTORY: Positive for smoking for about 20 years, half pack a day. Quit in 1994. Alcohol consumption none. FAMILY HISTORY: Hypertension, heart problems, hyperlipidemia, epilepsy, stroke, fibromyalgia, arthritis, asthma, insomnia, pneumonia, snoring, lung problems, bronchitis, acid reflux, liver problems, thyroid problems, anemia, during sleep, mental illness, restless legs. REVIEW OF SYSTEMS: Awakenings in the middle of the night every night with difficulty falling asleep again, tiredness and sleepiness during the day. PHYSICAL EXAMINATION: GENERAL: A pleasant lady without distress. VITAL SIGNS: BP 114/63, HR 80, RR 16, height 5 feet 0 inches, weight 231 pounds. Body mass index 45, temperature 97.6, oxygen saturation at room air 95%. HEENT: PERRLA, EOMI. Evaluation of oropharynx showed tongue protrudes midline. Extremely low position of soft palate. Mallampati IV. NECK: Supple. No JVD. Thyroid is not palpable. Wide neck; 16-1/2 inches in circumference. LUNGS: Clear to percussion and to auscultation. Good air exchange. No wheezing or rhonchi. HEART: S1, S2 regular. No murmurs, gallops or rubs. ABDOMEN: Obese. EXTREMITIES: No clubbing or cyanosis. One plus bilateral ankle edema. HARMONIC ANALYST: Awake, alert, and oriented X3. Cranial nerves 2 to 7 intact. There is no fasciculation or atrophy. noted. No focal deficits observed. IMPRESSION: 1. Snoring, awakenings from sleep with dry mouth and nocturia, extremely low position of soft palate, wide neck, sleepiness; obstructive sleep apnea-hypopnea syndrome. 2. History of sleeptalking. 3. Restless legs syndrome. 4. Status post liver transplant for MCCLURE in 2013. 5. End-stage renal disease, stage III. 6. History of anemia related to kidney problems. 7. Hypertension. 8. Hyperlipidemia. 9. Diabetes mellitus. 10.History of pneumonia and chronic obstructive pulmonary disease. 11.Status post bowel resection for strangulation. 12.Status post hernia repair. PLAN: 1. Polysomnography for evaluation of patient's breathing during sleep. 2. CPAP/BiPAP titration if sleep study confirms obstructive sleep apnea-hypopnea syndrome. 3. Preferable position during sleep on the side. 4. No driving if patient feels any sleepiness. 5. I will see patient for follow up visit to explain results of testing and following plan. Thank you very much for referring this patient for consultation. Sincerely, Poli Giron MD, PhD, FAASM Diplomat of [employer] [employer] [employer] Python Engineer of [facility] [place] MMODL / IJN: [id number] /
== END ==
LOC: SLEEP 15:08
PROVIDERS: ATTEND Internal Medicine
DX: G47.33 Obstructive sleep apnea (adult) (pediatric) (principal); G25.81 Restless legs syndrome; N18.6 End stage renal disease; I12.0 Hypertensive chronic kidney disease with stage 5 chronic kidney disease or end stage renal disease; D63.1 Anemia in chronic kidney disease; E78.5 Hyperlipidemia, unspecified; E11.22 Type 2 diabetes mellitus with diabetic chronic kidney disease; J18.9 Pneumonia, unspecified organism; J44.9 Chronic obstructive pulmonary disease, unspecified; Z94.4 Liver transplant status; Z98.890 Other specified postprocedural states; Z87.891 Personal history of nicotine dependence; Z79.899 Other long term (current) drug therapy
CPT/HCPCS: 99211

== ENCOUNTER → 2019-03-21 | Outpatient (CLI) | payer MEDICARE, BC ==
[2019-03-21 10:18] LABS: Basophils % (A) 0 %; Eosinophils # (A) 0.3 k/uL (0-0.7); Eosinophils % (A) 3 %; HCT 35.1 % (34.0-46.0); HGB 11.4 gm/dL (11.4-16.0); Lymphocytes # (A) 1.3 k/uL (1.0-4.8); Lymphocytes % (A) 15 %; MCH 28.2 pg (25.0-35.0); MCHC 32.6 g/dL (31.0-37.0); MCV 86.6 fL (80.0-100.0); Mean Platelet Volume 7.7; Monocytes # (A) 0.5 k/uL (0-1.0); Monocytes % (A) 6 %; Neutrophils # (A) 6.1 k/uL (1.3-7.7); Neutrophils % (A) 74 %; Platelet Count 293 k/uL (150-450); Poikilocytosis Slight; RBC 4.05 m/uL (3.80-5.40); WBC 8.2 k/uL (3.8-10.6)
[2019-03-21 18:42] LABS: African American GFR (CKD) 39.6 (60.0-200.0); Albumin 4.1 g/dL (3.80-4.90); Albumin/Globulin Ratio 2.05 (1.60-3.17); Anion Gap 9.4 mmol/L (4.00-12.00); BUN/Creat Ratio 15.63 Ratio (12.00-20.00); Bilirubin, Conjugated 0.3 mg/dL (0.20-0.40); Bilirubin,Unconjugated 0.4 mg/dL; Calcium 9.8 mg/dL (8.7-10.3); Carbon Dioxide 28.6 mmol/L (21.6-31.8); Magnesium 1.7 mg/dL (1.5-2.4); Potassium 4.3 mmol/L (3.5-5.5); Total Bilirubin 0.7 mg/dL (0.3-1.2); Total Protein 6.1 g/dL (6.2-8.2)
== END | disposition home or self-care (01) ==
LOC: LABWHC1 08:56
PROVIDERS: ATTEND Internal Medicine Gastroenterology
DX: Z48.23 Encounter for aftercare following liver transplant (principal); Z94.4 Liver transplant status
CPT/HCPCS: 36415; 80048; 80076; 80158; 82465; 83735; 85025

== ENCOUNTER → 2019-07-04 | Outpatient (CLI) | payer MEDICARE, BC ==
--- NOTE | 2019-07-04 11:06 | SFUN ---
SLEEP CENTER FOLLOW UP NOTE DATE OF SERVICE: 07/04/2019 This 63-year-old lady had been followed in sleep center for treatment of obstructive sleep apnea-hypopnea syndrome. Recently patient had polysomnogram which showed moderate obstructive sleep apnea and then patient had CPAP titration. I explained to her results of sleep studies in detail. She subsequently received her CPAP unit, started to use it and is able to use it practically every night without significant problems. I checked her CPAP unit. CPAP pressure in the range 5 to 12, average pressure 11.8, usage is 29 out of 30 nights and 24 out of 30 nights for more than 4 hours. Average usage 5.4 hours, which is good compliance. Leak is 22 L/minute, which is borderline for the full-face mask. Apnea-hypopnea index only 1.1, which is absolutely perfect. [place] Sleepiness Scale today is 4, which is normal. MEDICATIONS: Montelukast, nifedipine, omeprazole, pioglitazone, Ventolin, Tresiba, Ozempic, ferrous sulfate, CellCept, cyclosporine, furosemide, labetalol, losartan, magnesium supplement. PHYSICAL EXAMINATION: During physical exam, patient in no distress. VITAL SIGNS: BP 122/65, HR 96, RR 18, weight 217.6, temperature 98.6, oxygen saturation at room air 97%. HEENT: PERRLA, EOMI. Oropharynx extremely low position of soft palate. Mallampati 4. NECK: Supple, no JVD. Thyroid is not palpable. LUNGS: Clear to percussion and to auscultation. Good air exchange. No wheezing or rhonchi. HEART: S1, S2 regular. No murmurs, gallops, or rubs. ABDOMEN: Obese. EXTREMITIES: No clubbing or cyanosis. SOUND CUTTER: Awake, alert, and oriented X3. Cranial nerves 2 to 7 intact. There is no fasciculation or atrophy. noted. No focal deficits observed. IMPRESSION: 1. Moderate obstructive sleep apnea-hypopnea syndrome; apnea-hypopnea index 19.9 with severe oxygen desaturation to 51.4%. The patient demonstrated great compliance with treatment benefitting from treatment, respiration fully normalized on treatment with CPAP. 2. Obesity. 3. Status post liver transplant for MCCLURE in 2013. 4. End-stage renal disease stage 3. 5. History of anemia related to kidney problems. 6. Hypertension. 7. Hyperlipidemia. 8. Diabetes mellitus. 9. History of chronic obstructive pulmonary disease. 10.Status post bowel resection for strangulation. 11.Status post hernia repair. PLAN: 1. Patient will continue to use CPAP equipment every night for the whole night. 2. Losing weight. 3. Sleep hygiene with regular time in bed for at least 7-1/2 to 8 hours. 4. Precautions related to driving. No driving if feeling any sleepiness. 5. I will maintain all necessary prescriptions for CPAP supplies including a mask, tube, filters. 6. No driving if feeling any sleepiness. 7. Follow-up visit in 6 months or earlier if patient has any problems. Thank you very much for allowing me to participate in management of your patient. Sincerely, Poli Giron MD, PhD, FAASM Diplomat of [place] [employer] [employer] General Manager [employer] Department of [facility] [place] MMODL / AGATHAN: [id number] /
== END | disposition home or self-care (01) ==
LOC: SLEEP 10:00
PROVIDERS: ATTEND Internal Medicine
DX: G47.33 Obstructive sleep apnea (adult) (pediatric) (principal); E66.9 Obesity, unspecified; I12.0 Hypertensive chronic kidney disease with stage 5 chronic kidney disease or end stage renal disease; E11.22 Type 2 diabetes mellitus with diabetic chronic kidney disease; N18.6 End stage renal disease; E78.5 Hyperlipidemia, unspecified; Z94.4 Liver transplant status; Z87.09 Personal history of other diseases of the respiratory system; Z87.448 Personal history of other diseases of urinary system; Z98.890 Other specified postprocedural states; Z99.89 Dependence on other enabling machines and devices; Z79.4 Long term (current) use of insulin; Z79.899 Other long term (current) drug therapy

== ENCOUNTER → 2019-12-13 | Outpatient (CLI) | payer MEDICARE, BC ==
[2019-12-13 08:56] LABS: HCT 34.6 % (34.0-46.0); HGB 11.3 gm/dL (11.4-16.0); MCH 28.9 pg (25.0-35.0); MCHC 32.6 g/dL (31.0-37.0); MCV 88.5 fL (80.0-100.0); Mean Platelet Volume 7.4; Platelet Count 349 k/uL (150-450); RBC 3.91 m/uL (3.80-5.40); RDW 14.9 % (11.5-15.5); WBC 10.1 k/uL (3.8-10.6)
[2019-12-13 15:31] LABS: Ferritin 94.2 ng/mL (10.0-291.0)
[2019-12-13 16:20] LABS: % Iron Saturation 16.01 (12.00-45.00); Albumin 4.1 g/dL (3.80-4.90); Anion Gap 11.4 mmol/L (4.00-12.00); BUN/Creat Ratio 19.5 Ratio (12.00-20.00); Calcium 9.6 mg/dL (8.7-10.3); Carbon Dioxide 28.6 mmol/L (21.6-31.8); Non-African American GFR(CKD) 25.9 (60.0-200.0); Phosphorus 4.3 mg/dL (2.4-5.1); Potassium 4.7 mmol/L (3.5-5.5)
== END | disposition home or self-care (01) ==
LOC: LABWHC1 08:19
PROVIDERS: ATTEND Nurse Practitioner Adult Health
DX: I12.9 Hypertensive chronic kidney disease with stage 1 through stage 4 chronic kidney disease, or unspecified chronic kidney disease (principal); N18.3 Chronic kidney disease, stage 3 (moderate); D63.1 Anemia in chronic kidney disease; E55.9 Vitamin D deficiency, unspecified; E08.22 Diabetes mellitus due to underlying condition with diabetic chronic kidney disease; R80.1 Persistent proteinuria, unspecified; N25.81 Secondary hyperparathyroidism of renal origin
CPT/HCPCS: 36415; 80069; 82043; 82306; 82570; 82728; 83540; 83550; 83970; 84156; 85027

== ENCOUNTER → 2020-02-21 | Outpatient (CLI) | payer MEDICARE, BC ==
[2020-02-21 07:57] LABS: Basophils # (A) 0.1 k/uL (0-0.2); Basophils % (A) 1 %; Eosinophils # (A) 0.4 k/uL (0-0.7); Eosinophils % (A) 4 %; HCT 35.1 % (34.0-46.0); HGB 11.4 gm/dL (11.4-16.0); Hypochromasia Slight; Lymphocytes % (A) 11 %; MCH 29.1 pg (25.0-35.0); MCHC 32.5 g/dL (31.0-37.0); MCV 89.4 fL (80.0-100.0); Mean Platelet Volume 7.7; Monocytes # (A) 0.5 k/uL (0-1.0); Monocytes % (A) 5 %; Neutrophils # (A) 7.2 k/uL (1.3-7.7); Neutrophils % (A) 78 %; Platelet Count 309 k/uL (150-450); RBC 3.93 m/uL (3.80-5.40); RDW 14.6 % (11.5-15.5); WBC 9.2 k/uL (3.8-10.6)
[2020-02-21 08:19] LABS: ALT 19 U/L (4-34); AST 25 U/L (14-36); African American GFR (CKD) 33 (>60 ml/min/1.73 sqM); Albumin 4.1 g/dL (3.5-5.0); Albumin/Globulin Ratio 1.6; Alkaline Phosphatase 147 U/L (38-126); Anion Gap 7 mmol/L; Bilirubin,Unconjugated 0.6 mg/dL (0.0-1.1); Blood Urea Nitrogen 38 mg/dL (7-17); Calcium 9.9 mg/dL (8.4-10.2); Carbon Dioxide 30 mmol/L (22-30); Chloride 102 mmol/L (98-107); Cholesterol 146 mg/dL (<200); Globulin 2.5 g/dL; Glucose 100 mg/dL (74-99); Magnesium 2.3 mg/dL (1.6-2.3); Non-African American GFR(CKD) 29 (>60 ml/min/1.73 sqM); Potassium 5.4 mmol/L (3.5-5.1); Sodium 139 mmol/L (137-145); Total Bilirubin 0.8 mg/dL (0.2-1.3); Total Protein 6.6 g/dL (6.3-8.2)
[2020-02-21 15:41] LABS: % Iron Saturation 12.68 (12.00-45.00); Iron 45 ug/dL (50-170); Total Iron Binding Capacity 355 ug/dL (228-460)
[2020-02-21 15:49] LABS: Ferritin 109.6 ng/mL (10.0-291.0)
== END ==
LOC: LABWHC1 07:36
PROVIDERS: ATTEND Internal Medicine
DX: D64.9 Anemia, unspecified (principal); Z94.4 Liver transplant status
CPT/HCPCS: 36415; 80048; 80076; 80158; 82465; 82728; 83540; 83550; 83735; 85025

== ENCOUNTER → 2020-04-24 | Outpatient (CLI) | payer MEDICARE, BC ==
[2020-04-24 21:22] LABS: African American GFR (CKD) 39.3 (60.0-200.0); Calcium 10.1 mg/dL (8.7-10.3); Non-African American GFR(CKD) 33.9 (60.0-200.0); Potassium 5.3 mmol/L (3.5-5.5)
== END | disposition home or self-care (01) ==
LOC: LABWHC1 08:38
PROVIDERS: ATTEND Physician Assistant
DX: I10 Essential (primary) hypertension (principal)
CPT/HCPCS: 36415; 80048

== ENCOUNTER → 2020-05-20 | Outpatient (CLI) | payer MEDICARE, BC ==
[2020-05-20 11:01] LABS: Basophils # (A) 0.1 k/uL (0-0.2); Basophils % (A) 1 %; Eosinophils # (A) 0.3 k/uL (0-0.7); Eosinophils % (A) 3 %; HGB 11.8 gm/dL (11.4-16.0); Lymphocytes # (A) 1.1 k/uL (1.0-4.8); Lymphocytes % (A) 13 %; MCH 29.3 pg (25.0-35.0); MCHC 32.8 g/dL (31.0-37.0); MCV 89.4 fL (80.0-100.0); Mean Platelet Volume 7.3; Monocytes # (A) 0.5 k/uL (0-1.0); Monocytes % (A) 6 %; Neutrophils # (A) 6.9 k/uL (1.3-7.7); Neutrophils % (A) 77 %; Platelet Count 306 k/uL (150-450); RBC 4.03 m/uL (3.80-5.40); RDW 14.1 % (11.5-15.5); WBC 8.9 k/uL (3.8-10.6)
[2020-05-20 22:40] LABS: % Iron Saturation 13.99 (12.00-45.00); African American GFR (CKD) 34.1 (60.0-200.0); Albumin 4.2 g/dL (3.80-4.90); Albumin/Globulin Ratio 2.1 (1.60-3.17); Anion Gap 8.4 mmol/L (4.00-12.00); BUN/Creat Ratio 21.67 Ratio (12.00-20.00); Bilirubin, Conjugated 0.3 mg/dL (0.20-0.40); Bilirubin,Unconjugated 0.3 mg/dL; Calcium 9.6 mg/dL (8.7-10.3); Carbon Dioxide 26.6 mmol/L (21.6-31.8); Magnesium 2.3 mg/dL (1.5-2.4); Non-African American GFR(CKD) 29.4 (60.0-200.0); Potassium 4.9 mmol/L (3.5-5.5); Total Bilirubin 0.6 mg/dL (0.3-1.2); Total Protein 6.2 g/dL (6.2-8.2)
[2020-05-20 22:45] LABS: Ferritin 103.5 ng/mL (10.0-291.0)
== END | disposition home or self-care (01) ==
LOC: LABWHC1 09:21
PROVIDERS: ATTEND Internal Medicine
DX: D64.9 Anemia, unspecified (principal); Z94.4 Liver transplant status
CPT/HCPCS: 36415; 80048; 80076; 80158; 82465; 82728; 83540; 83550; 83735; 85025

== ENCOUNTER → 2021-03-08 | Outpatient (CLI) | payer MEDICARE, BC ==
[2021-03-08 15:03] LABS: Basophils # (A) 0.06 X 10*3/uL (0.00-0.10); Basophils % (A) 0.6 %; Eosinophils # (A) 0.27 X 10*3/uL (0.04-0.35); Eosinophils % (A) 2.9 %; HCT 41.1 % (37.2-46.3); HGB 13.2 g/dL (12.0-15.0); Lymphocytes # (A) 1.59 X 10*3/uL (0.90-5.00); Lymphocytes % (A) 17.2 %; MCH 29.4 pg (27.0-32.0); MCHC 32.1 g/dL (32.0-37.0); MCV 91.5 fL (80.0-97.0); Mean Platelet Volume 10.8 fL (9.5-12.2); Monocytes # (A) 0.87 X 10*3/uL (0.20-1.00); Monocytes % (A) 9.4 %; Neutrophils # (A) 6.38 X 10*3/uL (1.80-7.70); Neutrophils % (A) 68.9 %; Platelet Count 298 X 10*3/uL (140-440); RBC 4.49 X 10*6/uL (4.10-5.20); RDW 15.1 % (11.5-14.5); WBC 9.26 X 10*3/uL (4.50-10.00)
[2021-03-08 17:17] LABS: African American GFR (CKD) 31.7 (60.0-200.0); Albumin 4.2 g/dL (3.80-4.90); Albumin/Globulin Ratio 1.68 (1.60-3.17); Anion Gap 11.7 mmol/L (4.00-12.00); BUN/Creat Ratio 14.74 Ratio (12.00-20.00); Bilirubin, Conjugated 0.3 mg/dL (0.20-0.40); Bilirubin,Unconjugated 0.5 mg/dL; Carbon Dioxide 28.3 mmol/L (21.6-31.8); Globulin 2.5 g/dL (1.6-3.3); Magnesium 2.1 mg/dL (1.5-2.4); Non-African American GFR(CKD) 27.4 (60.0-200.0); Potassium 4.6 mmol/L (3.5-5.5); Total Bilirubin 0.8 mg/dL (0.2-1.2); Total Protein 6.7 g/dL (6.2-8.2)
== END | disposition home or self-care (01) ==
LOC: LABWHC1 08:23
PROVIDERS: ATTEND Internal Medicine Gastroenterology
DX: Z94.4 Liver transplant status (principal)
CPT/HCPCS: 36415; 80048; 80076; 80158; 82465; 83735; 85025

== ENCOUNTER → 2021-05-18 | Outpatient (CLI) | payer MEDICARE, BC ==
--- NOTE | 2021-05-19 14:11 | MM ---
Reason for exam: screening (asymptomatic). Last mammogram was performed 5 years and 1 month ago. History: Patient is postmenopausal. Took hormonal contraceptives for 3 months. Took progesterone for 2 years. Physical Findings: A clinical breast exam by your physician is recommended on an annual basis and results should be correlated with mammographic findings. MG 3D Screening Mammo W/Cad Bilateral CC and MLO view(s) were taken. Prior study comparison: April 28, 2016, bilateral MG 3d screening mammo w/cad. December 31, 2013, bilateral MG screening mammo w CAD. The breast tissue is heterogeneously dense. This may lower the sensitivity of mammography. Finding: There is a new indistinct round mass located 3 cm from the nipple in the upper outer quadrant of the left breast. New finding since April 28, 2016 and December 31, 2013. ASSESSMENT: Incomplete: need additional imaging evaluation, BI-RAD 0 RECOMMENDATION: Ultrasound of the left breast. [facility] will attempt to contact patient to return for ultrasound.
== END | disposition home or self-care (01) ==
LOC: RADMAMWWP 16:27
PROVIDERS: ATTEND Internal Medicine
DX: Z12.31 Encounter for screening mammogram for malignant neoplasm of breast (principal); Z78.0 Asymptomatic menopausal state
CPT/HCPCS: 77063; 77067

== ENCOUNTER → 2021-05-21 | Outpatient (CLI) | payer MEDICARE, BC ==
--- NOTE | 2021-05-21 14:40 | USB ---
Reason for exam: additional evaluation requested from abnormal screening. History: Patient is postmenopausal. Took hormonal contraceptives for 3 months. Took progesterone for 2 years. Physical Findings: Nurse did not find any significant physical abnormalities on exam. US Breast Workup Limited LT Left limited breast ultrasound including focal area of concern, retroareolar and axilla demonstrates a 0.7 x 0.7 x 0.7cm round, smooth, cystic lesion at 1 o'clock. These results were verbally communicated with the patient and result sheet given to the patient on 05/21/21. ASSESSMENT: Probably benign, BI-RAD 3 RECOMMENDATION: Ultrasound of the left breast in 6 months.
== END | disposition home or self-care (01) ==
LOC: RADUSWWP 13:34
PROVIDERS: ATTEND Internal Medicine
DX: N60.02 Solitary cyst of left breast (principal)

== ENCOUNTER → 2021-05-31 | Outpatient (CLI) | payer MEDICARE, BC ==
[2021-05-31 15:38] LABS: Basophils # (A) 0.07 X 10*3/uL (0.00-0.10); Basophils % (A) 0.7 %; Eosinophils # (A) 0.28 X 10*3/uL (0.04-0.35); Eosinophils % (A) 2.6 %; HCT 43.5 % (37.2-46.3); HGB 13.9 g/dL (12.0-15.0); Lymphocytes # (A) 2.01 X 10*3/uL (0.90-5.00); Lymphocytes % (A) 18.7 %; MCH 28.5 pg (27.0-32.0); MCV 89.3 fL (80.0-97.0); Mean Platelet Volume 10.5 fL (9.5-12.2); Monocytes # (A) 0.83 X 10*3/uL (0.20-1.00); Monocytes % (A) 7.7 %; Neutrophils # (A) 7.49 X 10*3/uL (1.80-7.70); Neutrophils % (A) 69.6 %; Platelet Count 365 X 10*3/uL (140-440); RBC 4.87 X 10*6/uL (4.10-5.20); RDW 14.6 % (11.5-14.5); WBC 10.76 X 10*3/uL (4.50-10.00)
[2021-05-31 17:50] LABS: African American GFR (CKD) 37.1 (60.0-200.0); BUN/Creat Ratio 14.85 Ratio (12.00-20.00); Blood Urea Nitrogen 24.8 mg/dL (9.0-27.0); Calcium 10.3 mg/dL (8.7-10.3); Carbon Dioxide 24.1 mmol/L (21.6-31.8); Chloride 100 mmol/L (96-109); Glucose 163 mg/dL (70-110); Sodium 139 mmol/L (135-145)
[2021-05-31 17:51] LABS: ALT 24 U/L (8-44); AST 20 U/L (13-35); Albumin 4.4 g/dL (3.8-4.9); Alkaline Phosphatase 219 U/L (41-126); Bilirubin, Conjugated <0.20 mg/dL (0.20-0.40); Globulin 2.6 g/dL (1.6-3.3); Magnesium 2.3 mg/dL (1.5-2.4); Total Protein 6.9 g/dL (6.2-8.2)
== END | disposition home or self-care (01) ==
LOC: LABWHC1 08:45
PROVIDERS: ATTEND Internal Medicine Gastroenterology
DX: Z94.4 Liver transplant status (principal)
CPT/HCPCS: 36415; 80048; 80076; 80158; 82465; 83735; 85025

== ENCOUNTER → 2021-08-23 | Outpatient (CLI) | payer MEDICARE, BC ==
[2021-08-23 15:43] LABS: ALT 27 U/L (8-44); AST 21 U/L (13-35); Albumin 4.1 g/dL (3.8-4.9); Albumin/Globulin Ratio 1.53 (1.60-3.17); Alkaline Phosphatase 203 U/L (41-126); BUN/Creat Ratio 14.56 Ratio (12.00-20.00); Bilirubin, Conjugated <0.20 mg/dL (0.20-0.40); Blood Urea Nitrogen 21.4 mg/dL (9.0-27.0); Calcium 10.1 mg/dL (8.7-10.3); Carbon Dioxide 28.6 mmol/L (20.0-27.5); Chloride 99 mmol/L (96-109); Globulin 2.7 g/dL (1.6-3.3); Glucose 111 mg/dL (70-110); Magnesium 1.8 mg/dL (1.5-2.4); Non-African American GFR(CKD) 37.1 (60.0-200.0); Potassium 4.2 mmol/L (3.5-5.5); Sodium 142 mmol/L (135-145); Total Protein 6.7 g/dL (6.2-8.2)
== END | disposition home or self-care (01) ==
LOC: LABWHC1 08:14
PROVIDERS: ATTEND Internal Medicine Gastroenterology
DX: Z94.4 Liver transplant status (principal)
CPT/HCPCS: 36415; 80048; 80076; 80158; 82465; 83735

== ENCOUNTER → 2021-08-25 | Outpatient (CLI) | payer MEDICARE, BC ==
[2021-08-25 18:33] LABS: Basophils # (A) 0.05 X 10*3/uL (0.00-0.10); Basophils % (A) 0.5 %; Eosinophils # (A) 0.44 X 10*3/uL (0.04-0.35); Eosinophils % (A) 4.4 %; HCT 42.1 % (37.2-46.3); HGB 13.4 g/dL (12.0-15.0); Lymphocytes # (A) 1.69 X 10*3/uL (0.90-5.00); Lymphocytes % (A) 16.9 %; MCH 28.7 pg (27.0-32.0); MCHC 31.8 g/dL (32.0-37.0); MCV 90.1 fL (80.0-97.0); Mean Platelet Volume 10.6 fL (9.5-12.2); Monocytes # (A) 0.98 X 10*3/uL (0.20-1.00); Monocytes % (A) 9.8 %; Neutrophils # (A) 6.71 X 10*3/uL (1.80-7.70); Neutrophils % (A) 67.1 %; Platelet Count 348 X 10*3/uL (140-440); RBC 4.67 X 10*6/uL (4.10-5.20); RDW 14.7 % (11.5-14.5)
== END | disposition home or self-care (01) ==
LOC: LABWHC1 11:45
PROVIDERS: ATTEND Internal Medicine Gastroenterology
DX: Z94.4 Liver transplant status (principal)
CPT/HCPCS: 36415; 85025

== ENCOUNTER → 2021-09-30 | Outpatient (CLI) | payer MEDICARE, BC ==
[2021-09-30 15:36] LABS: Basophils # (A) 0.09 X 10*3/uL (0.00-0.10); Basophils % (A) 0.9 %; Eosinophils # (A) 0.41 X 10*3/uL (0.04-0.35); Eosinophils % (A) 4.1 %; HCT 41.3 % (37.2-46.3); Immature Grans, Automated 0.7 %; Lymphocytes # (A) 1.45 X 10*3/uL (0.90-5.00); Lymphocytes % (A) 14.6 %; MCH 28.4 pg (27.0-32.0); MCHC 31.5 g/dL (32.0-37.0); MCV 90.4 fL (80.0-97.0); Mean Platelet Volume 10.9 fL (9.5-12.2); Monocytes # (A) 0.89 X 10*3/uL (0.20-1.00); Monocytes % (A) 8.9 %; NRBC Per 100 WBC 0 /100 WBCS (0.0-0.0); Neutrophils # (A) 7.04 X 10*3/uL (1.80-7.70); Neutrophils % (A) 70.8 %; Platelet Count 386 X 10*3/uL (140-440); RBC 4.57 X 10*6/uL (4.10-5.20); RDW 14.3 % (11.5-14.5); WBC 9.95 X 10*3/uL (4.50-10.00)
[2021-09-30 16:31] LABS: ALT 38 U/L (8-44); AST 28 U/L (13-35); African American GFR (CKD) 38.8 (60.0-200.0); Albumin 4.3 g/dL (3.8-4.9); Albumin/Globulin Ratio 1.59 (1.60-3.17); Alkaline Phosphatase 249 U/L (41-126); Bilirubin, Conjugated <0.20 mg/dL (0.20-0.40); Blood Urea Nitrogen 28.8 mg/dL (9.0-27.0); Calcium 9.9 mg/dL (8.7-10.3); Carbon Dioxide 27.4 mmol/L (20.0-27.5); Chloride 98 mmol/L (96-109); Globulin 2.7 g/dL (1.6-3.3); Glucose 201 mg/dL (70-110); Magnesium 2.6 mg/dL (1.5-2.4); Non-African American GFR(CKD) 33.5 (60.0-200.0); Sodium 139 mmol/L (135-145)
== END | disposition home or self-care (01) ==
LOC: LABWHC1 08:52
PROVIDERS: ATTEND Internal Medicine Gastroenterology
DX: Z94.4 Liver transplant status (principal)
CPT/HCPCS: 36415; 80048; 80076; 80158; 82465; 83735; 85025

== ENCOUNTER → 2021-11-04 | Outpatient (CLI) | payer MEDICARE, BC ==
[2021-11-04 15:08] LABS: ALT 28 U/L (8-44); AST 24 U/L (13-35); African American GFR (CKD) 41.3 (60.0-200.0); Albumin 4.2 g/dL (3.8-4.9); Albumin/Globulin Ratio 1.75 (1.60-3.17); Alkaline Phosphatase 200 U/L (41-126); BUN/Creat Ratio 13.29 Ratio (12.00-20.00); Bilirubin, Conjugated <0.20 mg/dL (0.20-0.40); Blood Urea Nitrogen 20.2 mg/dL (9.0-27.0); Carbon Dioxide 25.4 mmol/L (20.0-27.5); Chloride 100 mmol/L (96-109); Globulin 2.4 g/dL (1.6-3.3); Glucose 170 mg/dL (70-110); Magnesium 2.3 mg/dL (1.5-2.4); Non-African American GFR(CKD) 35.6 (60.0-200.0); Potassium 4.4 mmol/L (3.5-5.5); Sodium 141 mmol/L (135-145); Total Protein 6.6 g/dL (6.2-8.2)
[2021-11-04 16:25] LABS: Basophils # (A) 0.06 X 10*3/uL (0.00-0.10); Basophils % (A) 0.7 %; Eosinophils # (A) 0.26 X 10*3/uL (0.04-0.35); HCT 40.9 % (37.2-46.3); Immature Grans, Automated 0.5 %; Lymphocytes # (A) 1.55 X 10*3/uL (0.90-5.00); Lymphocytes % (A) 17.9 %; MCHC 31.8 g/dL (32.0-37.0); MCV 91.1 fL (80.0-97.0); Mean Platelet Volume 10.7 fL (9.5-12.2); Monocytes # (A) 0.76 X 10*3/uL (0.20-1.00); Monocytes % (A) 8.8 %; NRBC Per 100 WBC 0 /100 WBCS (0.0-0.0); Neutrophils # (A) 5.98 X 10*3/uL (1.80-7.70); Neutrophils % (A) 69.1 %; Platelet Count 297 X 10*3/uL (140-440); RBC 4.49 X 10*6/uL (4.10-5.20); RDW 14.7 % (11.5-14.5); WBC 8.65 X 10*3/uL (4.50-10.00)
[2021-11-04 16:26] LABS: RBC Morphology NORMAL
== END | disposition home or self-care (01) ==
LOC: LABWHC1 08:14
PROVIDERS: ATTEND Internal Medicine Gastroenterology
DX: Z94.4 Liver transplant status (principal)
CPT/HCPCS: 36415; 80048; 80076; 80158; 82465; 83735; 85025

== ENCOUNTER → 2022-01-27 | Outpatient (CLI) | payer MEDICARE, BC ==
--- NOTE | 2022-01-27 08:39 | USB ---
Reason for Exam: Follow-up at short interval from prior study. Patient History: Menarche at age 11. First Full-Term at age 20. Left ovary removed at age 44. Right ovary removed at age 44. Hysterectomy at age 44. Postmenopausal. Patient used Progesterone for 2 years. Hormonal Contraceptives for 3 months. Risk Values: Veronica 5 year model risk: 1.3%. NCI Lifetime model risk: 5.0%. Prior Study Comparison: 12/31/2013 Bilateral Screening Mammogram, [facility]. 04/28/2016 Bilateral Screening Mammogram, [facility]. 05/18/2021 Bilateral Screening Mammogram, [facility]. Findings: Finding 1: Complicated cysts. Laterality: Right. Size 8 x 8 x 1 mm. 1 O'clock 1 cm cm from nipple. Targeted scanning left breast upper outer quadrant 12:00 to 3:00 including the subareolar region and axilla. At the 1:00 position zone A, there is a benign 10 x 8 x 8 cyst showing gentle lobulation. Previously, this measured. 7 x 7 x 7 mm. Likely mammographic correlate. The mammographic nodule can be reassessed at the tail of the patient's annual exam. No other solid or cystic lesion or axillary lymphadenopathy. Overall Assessment: Probably benign, BI-RAD 3 Management: Diagnostic Mammogram of both breasts in 6 months. 1. Six-month follow-up diagnostic bilateral mammograms (total 1 year follow-up for the left breast nodule, likely corresponds to the cyst seen on ultrasound; annual exam of the right breast). 2. Patient should continue monthly self breast exams. 3. This exam should not recommend additional follow-up of suspicious palpable abnormalities. Electronically signed and approved by: Sugar Lucero M.D. Radiologist
== END | disposition home or self-care (01) ==
LOC: RADUSWWP 07:49
PROVIDERS: ATTEND Internal Medicine
DX: N60.01 Solitary cyst of right breast (principal); Z78.0 Asymptomatic menopausal state

== ENCOUNTER → 2022-07-13 | Outpatient (CLI) | payer MEDICARE, BC ==
[2022-07-13 14:40] LABS: Basophils # (A) 0.04 X 10*3/uL (0.00-0.10); Basophils % (A) 0.3 %; Eosinophils # (A) 0.16 X 10*3/uL (0.04-0.35); Eosinophils % (A) 1.2 %; HCT 42.2 % (37.2-46.3); HGB 12.9 g/dL (12.0-15.0); Immature Grans, Automated 0.3 %; Lymphocytes # (A) 1.11 X 10*3/uL (0.90-5.00); Lymphocytes % (A) 8.7 %; MCH 27.6 pg (27.0-32.0); MCHC 30.6 g/dL (32.0-37.0); MCV 90.4 fL (80.0-97.0); Mean Platelet Volume 11.6 fL (9.5-12.2); Monocytes # (A) 1.05 X 10*3/uL (0.20-1.00); Monocytes % (A) 8.2 %; NRBC Per 100 WBC 0 /100 WBCS (0.0-0.0); Neutrophils # (A) 10.43 X 10*3/uL (1.80-7.70); Neutrophils % (A) 81.3 %; Platelet Count 291 X 10*3/uL (140-440); RBC 4.67 X 10*6/uL (4.10-5.20); RDW 13.5 % (11.5-14.5); WBC 12.83 X 10*3/uL (4.50-10.00)
[2022-07-13 14:48] LABS: ALT 25 U/L (8-44); AST 17 U/L (13-35); African American GFR (CKD) 45.6 (60.0-200.0); Albumin 4.1 g/dL (3.8-4.9); Albumin/Globulin Ratio 1.52 (1.60-3.17); Alkaline Phosphatase 291 U/L (41-126); Bilirubin, Conjugated <0.20 mg/dL (0.20-0.40); Blood Urea Nitrogen 26.6 mg/dL (9.0-27.0); Calcium 10.3 mg/dL (8.7-10.3); Carbon Dioxide 22.7 mmol/L (20.0-27.5); Chloride 108 mmol/L (96-109); Globulin 2.7 g/dL (1.6-3.3); Glucose 133 mg/dL (70-110); Magnesium 2.1 mg/dL (1.5-2.4); Non-African American GFR(CKD) 39.3 (60.0-200.0); Potassium 4.8 mmol/L (3.5-5.5); Sodium 141 mmol/L (135-145); Total Protein 6.8 g/dL (6.2-8.2)
== END | disposition home or self-care (01) ==
LOC: LABWHC1 07:16
PROVIDERS: ATTEND Internal Medicine Hepatology
DX: Z94.4 Liver transplant status (principal)
CPT/HCPCS: 36415; 80048; 80076; 80158; 82465; 83735; 85025

== ENCOUNTER → 2022-07-21 | Outpatient (CLI) | payer MEDICARE, BC | END | disposition home or self-care (01) | LOC: LABWHC1 07:10 | PROVIDERS: ATTEND Internal Medicine | DX: U07.1 COVID-19 (principal); Z94.4 Liver transplant status | CPT/HCPCS: 87502; U0003; C9803 ==

== ENCOUNTER → 2022-07-25 | Outpatient (CLI) | payer MEDICARE, BC ==
--- NOTE | 2022-07-25 13:48 | MM ---
Reason for Exam: Follow-up at short interval from prior study. Last mammogram was performed 1 year(s) and 2 month(s) ago. Patient History: Menarche at age 11. First Full-Term at age 20. Left ovary removed at age 44. Right ovary removed at age 44. Hysterectomy at age 44. Postmenopausal. Patient used Progesterone for 2 years. Hormonal Contraceptives for 3 months. Risk Values: Veronica 5 year model risk: 1.3%. NCI Lifetime model risk: 4.8%. Prior Study Comparison: 12/31/2013 Bilateral Screening Mammogram, [facility]. 04/28/2016 Bilateral Screening Mammogram, [facility]. 05/18/2021 Bilateral Screening Mammogram, [facility]. Tissue Density: Left: The breast tissue is heterogeneously dense. This may lower the sensitivity of mammography. Findings: Analyzed By CAD. Redemonstration of of left breast lateral anterior depth cyst measuring 9 mm on today's exam which may be fractionally larger than prior where it measured 7-8 mm. No suspicious calcifications or distortions in the left breast. No suspicious masses, calcifications or distortions within the right breast. Overall Assessment: Benign, BI-RAD 2 Management: Screening Mammogram of both breasts in 1 year. A clinical breast exam by your physician is recommended on an annual basis and results should be correlated with mammographic findings. This exam should not preclude additional follow-up of suspicious palpable abnormalities. Results were given to the patient verbally at the time of exam. Electronically signed and approved by: Andrea Christopher DO
== END | disposition home or self-care (01) ==
LOC: RADMAMWWP 12:14
PROVIDERS: ATTEND Internal Medicine Geriatric Medicine
DX: R92.2 Inconclusive mammogram (principal); Z78.0 Asymptomatic menopausal state; Z90.721 Acquired absence of ovaries, unilateral
CPT/HCPCS: 77066; G0279; 77062

== ENCOUNTER → 2022-12-01 | Outpatient (CLI) | payer MEDICARE, BC | END | disposition home or self-care (01) | LOC: LABWHC1 08:01 | PROVIDERS: ATTEND Internal Medicine | DX: E11.65 Type 2 diabetes mellitus with hyperglycemia (principal) | CPT/HCPCS: 36415; 83036 ==

== ENCOUNTER → 2023-03-08 | Outpatient (CLI) | payer MEDICARE, BC ==
[2023-03-08 17:41] LABS: ALT 11 U/L (8-44); AST 14 U/L (13-35); Albumin 4.2 d/dL (3.8-4.9); Alkaline Phosphatase 173 U/L (41-126); Bilirubin, Conjugated <0.20 mg/dL (0.20-0.40); Bilirubin,Unconjugated >0.20 mg/dL (0.20-1.00); Calcium 10.3 mg/dL (8.7-10.3); Carbon Dioxide 21.7 mmol/L (21.6-31.8); Chloride 109 mmol/L (96-109); GGT 68 U/L (0-38); Globulin 2.1 d/dL (1.6-3.3); Glucose 63 mg/dL (70-110); Magnesium 2.2 mg/dL (1.5-2.4); Potassium 4.6 mmol/L (3.5-5.5); Sodium 142 mmol/L (135-145); Total Bilirubin 0.4 mg/dL (0.3-1.2); Total Protein 6.3 d/dL (6.2-8.2)
[2023-03-08 18:39] LABS: Acanthocytes 2+; Basophils # (A) 0.04 X 10*3/uL (0.00-0.10); Basophils % (A) 0.4 %; Elliptocytes 2+; Eosinophils # (A) 0.18 X 10*3/uL (0.04-0.35); Eosinophils % (A) 1.9 %; HCT 46.6 % (37.2-46.3); HGB 14.4 d/dL (12.0-15.0); Lymphocytes # (A) 1.39 X 10*3/uL (0.90-5.00); Lymphocytes % (A) 14.6 %; MCH 27.1 pg (27.0-32.0); MCHC 30.9 d/dL (32.0-37.0); MCV 87.8 FL (80.0-97.0); Mean Platelet Volume 11.6 FL (9.5-12.2); Monocytes # (A) 0.84 X 10*3/uL (0.20-1.00); Monocytes % (A) 8.8 %; NRBC Per 100 WBC 0 X 10*3/uL (0.00-0.01); Neutrophils # (A) 7.04 X 10*3/uL (1.80-7.70); Neutrophils % (A) 73.8 %; Platelet Count 221 X 10*3/uL (140-440); RBC 5.31 X 10*6/uL (4.10-5.20); RDW 13.7 % (11.5-14.5); WBC 9.54 X 10*3/uL (4.50-10.00)
== END | disposition home or self-care (01) ==
LOC: LABWHC1 08:32
PROVIDERS: ATTEND Internal Medicine Geriatric Medicine
DX: D84.9 Immunodeficiency, unspecified (principal); Z94.4 Liver transplant status
CPT/HCPCS: 36415; 80048; 80076; 80158; 82465; 82977; 83735; 85025

== ENCOUNTER 2023-03-24 08:16 | Inpatient (IN) | payer MEDICARE, BC ==
[2023-03-24] MEDS ORDERED: METOCLOPRAMIDE 5 MG/ML 2 ML VIAL IVP STA (08:47)
[2023-03-24] MEDS ORDERED: SODIUM CHLORIDE 0.9% 500 ML 500 ML IV ONE (08:47)
[2023-03-24] MEDS ORDERED: diphenhydrAMINE 50 MG/ML 1 ML VIAL IVP STA (08:47)
[2023-03-24 09:01] LABS: Glucose,Whole Blood 163 mg/dL (70-110)
[2023-03-24 09:14] LABS: Basophils % (A) 0 %; Eosinophils # (A) 0.2 k/uL (0-0.7); Eosinophils % (A) 2 %; HGB 13.8 gm/dL (11.4-16.0); Lymphocytes # (A) 0.7 k/uL (1.0-4.8); Lymphocytes % (A) 7 %; MCH 27.5 pg (25.0-35.0); MCHC 32.9 g/dL (31.0-37.0); MCV 83.3 fL (80.0-100.0); Mean Platelet Volume 8.2; Monocytes # (A) 0.8 k/uL (0-1.0); Monocytes % (A) 9 %; Neutrophils # (A) 7.6 k/uL (1.3-7.7); Neutrophils % (A) 80 %; Platelet Count 201 k/uL (150-450); Poikilocytosis Slight; RBC 5.04 m/uL (3.80-5.40); RDW 14.5 % (11.5-15.5); WBC 9.6 k/uL (3.8-10.6)
[2023-03-24 09:22] LABS: INR 0.9 (<1.2); Partial Thromboplastin Time 22.6 sec (22.0-30.0)
[2023-03-24 09:23] LABS: Lactic Acid, Venous 1.3 mmol/L (0.7-2.0)
[2023-03-24 09:24] LABS: ALT 33 U/L (4-34); AST 51 U/L (14-36); African American GFR (CKD) 30 (>60 ml/min/1.73 sqM); Albumin 3.8 g/dL (3.5-5.0); Alkaline Phosphatase 213 U/L (38-126); Anion Gap 12 mmol/L; Blood Urea Nitrogen 24 mg/dL (7-17); Carbon Dioxide 18 mmol/L (22-30); Chloride 107 mmol/L (98-107); Glucose 173 mg/dL (74-99); Lipase 79 U/L (23-300); Magnesium 2.1 mg/dL (1.6-2.3); Non-African American GFR(CKD) 26 (>60 ml/min/1.73 sqM); Potassium 4.2 mmol/L (3.5-5.1); Sodium 137 mmol/L (137-145); Total Bilirubin 0.9 mg/dL (0.2-1.3); Total Protein 6.4 g/dL (6.3-8.2)
--- NOTE | 2023-03-24 09:59 | XR ---
EXAMINATION TYPE: XR chest 2V DATE OF EXAM: 03/24/2023 COMPARISON: 10/04/2018 HISTORY: Shortness of breath TECHNIQUE: Frontal and lateral views of the chest are obtained. FINDINGS: Scattered senescent parenchymal changes noted. Hyperinflation compatible with COPD. Patchy infiltrate right lower lobe is felt to reflect pneumonia. The remainder of the lungs are clear . Heart size is stable. Mediastinal structures are stable and grossly unremarkable. No evidence for hilar prominence. Degenerative changes dorsal spine. IMPRESSION: 1. Suspect right lower lobe pneumonia.
--- NOTE | 2023-03-24 11:39 | ED ---
General Adult HPI - General Chief complaint: Altered Mental Status Stated complaint: AMS Time Seen by Provider: 03/24/23 08:40 Source: EMS Mode of arrival: EMS Limitations: altered mental status - History of Present Illness Initial comments: 67-year-old female with past medical history of liver transplant who presents to the emergency department with nausea vomiting altered mental status. is at bedside and fries a history. States that this morning the patient woke up and she was normal self. He then heard her gagging in the other room. When he came in he saw that the patient was vomiting and appeared to be choking on her vomit. She seemed confused therefore he called an ambulance. It is reported the patient has not felt well all week. She has felt fatigued and nauseated. She saw her primary care doctor who placed her on Bactrim for a sinus infection. She has been taking the medications as directed. Denies any pain to include chest pain or abdominal pain. No shortness of breath. Denies fevers. She currently has decreased her dose of CellCept to 2 pills in the morning and 2 pills at night instead of 3 times in the morning as she is running low on her medications. No other alleviating, precipitating or modifying factors - Related Data Home Medications Medication Instructions Recorded Confirmed Calcium Carbonate/Vitamin D3 1 tab PO DAILY@1700 06/01/16 03/24/23 [Caltrate 600 Plus D3 20 Mcg (800 Iu)] NIFEdipine [Procardia XL] 90 mg PO DAILY 06/01/16 03/24/23 Omeprazole 20 mg PO BID-W/MEALS 06/01/16 03/24/23 Thiamine [Vitamin B-1] 100 mg PO DAILY@1700 06/01/16 03/24/23 Losartan [Cozaar] 50 mg PO HS 10/04/18 03/24/23 Montelukast [Singulair] 10 mg PO DAILY@1700 10/04/18 03/24/23 mycophenolate mofetiL [Cellcept] 750 mg PO BID-W/MEALS 10/04/18 03/24/23 Brivaracetam [Briviact] 25 mg PO BID-W/MEALS 03/24/23 03/24/23 Cholecalciferol [Vitamin D3 (25 50 mcg PO HS 03/24/23 03/24/23 Mcg = 1000 Iu)] Dapagliflozin Propanediol [Farxiga] 10 mg PO DAILY 03/24/23 03/24/23 Insulin Aspart Prot/Insuln Asp 7 units SQ AC-SUPPER 03/24/23 03/24/23 [Novolog MIX 70-30 Flexpen] Insulin Aspart Prot/Insuln Asp 15 units SQ AC-BRKFST 03/24/23 03/24/23 [Novolog MIX 70-30 Flexpen] Lacosamide [Vimpat] 100 mg PO BID 03/24/23 03/24/23 Lacosamide [Vimpat] 200 mg PO BID 03/24/23 03/24/23 Metoprolol Succinate (ER) [Toprol 25 mg PO HS 03/24/23 03/24/23 Xl] Rosuvastatin Calcium 5 mg PO MOWEFR@1700 03/24/23 03/24/23 Semaglutide [Ozempic] 1 mg SQ WE 03/24/23 03/24/23 cloBAZam [Onfi] 10 mg PO BID-W/MEALS 03/24/23 03/24/23 ursodioL [Ursodiol] 250 mg PO HS 03/24/23 03/24/23 ursodioL [Ursodiol] 500 mg PO DAILY 03/24/23 03/24/23 Allergies Allergy/AdvReac Type Severity Reaction Status Date / Time venom-honey bee Allergy Severe Swelling Verified 03/24/23 14:39 [bee venom (honey bee)] ciprofloxacin Allergy Rash/Hives Verified 03/24/23 14:39 codeine Allergy Rash/Hives Verified 03/24/23 14:39 erythromycin base Allergy Rash/Hives Verified 03/24/23 14:39 levofloxacin Allergy Rash/Hives Verified 03/24/23 14:39 lisinopril Allergy Rash/Hives Verified 03/24/23 14:39 metformin Allergy Swelling Verified 03/24/23 14:39 of throat moxifloxacin Allergy Rash/Hives Verified 03/24/23 14:39 Penicillins Allergy hives, Verified 03/24/23 14:39 swelling plum Allergy Unknown Verified 03/24/23 14:39 rofecoxib Allergy Rash/Hives Verified 03/24/23 14:39 Tetracyclines Allergy Rash/Hives Verified 03/24/23 14:39 Review of Systems ROS Statement: Those systems with pertinent positive or pertinent negative responses have been documented in the HPI. ROS Other: All systems not noted in ROS Statement are negative. 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 History of Any Multi-Drug Resistant Organisms: None Reported Past Surgical History: Bowel Resection, Breast Surgery, Cholecystectomy, Hernia Repair, Hysterectomy, Tonsillectomy, Tubal Ligation Additional Past Surgical History / Comment(s): 2013 liver transplant at [facility], bowel resection d/t strangulation, L breast bx/lumpectomy-benign, abdominal hernia repair x2, R carpel tunnel release, colonoscopy/polypectomy, R foot heel spur, bilateral cataract removal with lens implants. Past Anesthesia/Blood Transfusion Reactions: No Reported Reaction Past Psychological History: No Psychological Hx Reported Smoking Status: Former smoker Past Alcohol Use History: None Reported Past Drug Use History: None Reported - Past Family History Father Family Medical History: Myocardial Infarction ([place]) Additional Family Medical History / Comment(s): Father of a [place] at the age of 44yrs. Mother Family Medical History: Coronary Artery Disease (CAD), Dementia, Diabetes Mellitus Additional Family Medical History / Comment(s): Mother at the age of 78yrs. General Exam Limitations: altered mental status General appearance: alert, lethargic, other (Vomiting) Head exam: Present: atraumatic, normocephalic, normal inspection Eye exam: Present: normal appearance, PERRL, EOMI. Absent: scleral icterus, con junctival injection, periorbital swelling ENT exam: Present: normal exam, mucous membranes moist Neck exam: Present: normal inspection. Absent: tenderness, meningismus, lymphadenopathy Respiratory exam: Present: normal lung sounds bilaterally. Absent: respiratory distress, wheezes, rales, rhonchi, stridor Cardiovascular Exam: Present: regular rate, normal rhythm, normal heart sounds. Absent: systolic murmur, diastolic murmur, rubs, gallop, clicks GI/Abdominal exam: Present: soft, normal bowel sounds. Absent: distended, tenderness, guarding, rebound, rigid Extremities exam: Present: normal inspection, full ROM, normal capillary refill. Absent: tenderness, pedal edema, joint swelling, calf tenderness Back exam: Present: normal inspection Neurological exam: Present: alert, oriented X3, CN II-XII intact Psychiatric exam: Present: normal affect, normal mood Skin exam: Present: warm, dry, intact, normal color. Absent: rash Course Vital Signs 03/24/23 03/24/23 03/24/23 08:29 10:00 11:31 Temperature 98.3 F Pulse Rate 89 74 78 Respiratory 18 18 18 Rate Blood Pressure 127/66 103/56 109/39 O2 Sat by Pulse 96 96 97 Oximetry 03/24/23 03/24/23 03/24/23 13:25 13:30 14:00 Temperature Pulse Rate 77 79 80 Respiratory Rate Blood Pressure 106/53 106/53 110/52 O2 Sat by Pulse 93 L 94 L 96 Oximetry 03/24/23 14:30 Temperature Pulse Rate 78 Respiratory Rate Blood Pressure 104/51 O2 Sat by Pulse 95 Oximetry Medical Decision Making - Medical Decision Making Was pt. sent in by a medical professional or institution ([facility], [facility], urgent care, hospital, or jail...) When possible be specific @ -No Did you speak to anyone other than the patient for history (EMS, parent, family, police, friend...)? What history was obtained from this source @ -I spoke with the patient's in regards to her symptoms as well as EMS Did you review nursing and triage notes (agree or disagree)? Why? @ -I reviewed and agree with nursing and triage notes Were old charts reviewed (outside hosp., previous admission, EMS record, old EKG, old radiological studies, urgent care reports/EKG's, jail records)? Report findings @ -No old charts were reviewed Differential Diagnosis (chest pain, altered mental status, abdominal pain women, abdominal pain men, vaginal bleeding, weakness, fever, dyspnea, syncope, headache, dizziness, GI bleed, back pain, seizure, CVA, palpatations, mental health, musculoskeletal)? @ -Differential Altered Mental Status: Hypoglycemia, DKA, hypercapnia, ETOH, overdose, CO poisoning, trauma, myxedema coma, HTN encephalopathy, infection, encephalitis, psychosis, intercranial hemorrhage, hepatic encephalopathy, meningitis, CVA, this is not meant to be an all-inclusive list EKG interpreted by me (3pts min.). @ -yes and demonstrates sinus rhythm with a rate of 82. PA interval 212. QRS 97. QTC of 410. No acute ST segment elevations or depressions X-rays interpreted by me (1pt min.). @ -Yes and demonstrates right lower lobe pneumonia CT interpreted by me (1pt min.). @ -None done U/S interpreted by me (1pt. min.). @ -None done What testing was considered but not performed or refused? (CT, X-rays, U/S, labs)? Why? @ -CT of the brain however the patient is appropriately answering questions for me What meds were considered but not given or refused? Why? @ -Several antibiotics were considered however the patient does have lots of medication ALLERGIES Did you discuss the management of the patient with other professionals (professionals i.e. , PA, SHE[employer] [facility], lab, RT, psych nurse, social science professor, boiling house oiler, teacher, education officer, case work aide)? Give summary @ -Spoke with Dr. Scott for admission Was smoking cessation discussed for >3mins.? @ -No Was critical care preformed (if so, how long)? @ -No Were there social determinants of health that impacted care today? How? (Homelessness, low income, unemployed, alcoholism, drug addiction, transportation, low edu. Level, literacy, decrease access to med. care, fci, rehab)? @ -No Was there de-escalation of care discussed even if they declined (Discuss DNR or withdrawal of care, Hospice)? DNR status @ -No What co-morbidities impacted this encounter? (DM, HTN, Smoking, COPD, CAD, Cancer, CVA, ARF, Chemo, Hep., AIDS, mental health diagnosis, sleep apnea, morbid obesity)? @ -Liver transplant, seizure disorder Was patient admitted / discharged? Hospital course, mention meds given and route, prescriptions, significant lab abnormalities, going to OR and other pertinent info. @ -Upon arrival patient was placed into room 9. A thorough history and physical exam was performed. EMS did give her 4 mg of Zofran. She is continuously vomiting. She was given a dose of Reglan and Benadryl. Laboratory studies are conducted. Chest x-ray was performed. Patient does demonstrate aspiration pneumonitis versus pneumonia. She has several antibiotic ALLERGIES. She was given a dose of Rocephin. Recommended admission for nausea, vomiting and pneumonia for which the patient was agreeable. Spoke with Dr. Scott for admission Undiagnosed new problem with uncertain prognosis? @ -Yes Drug Therapy requiring intensive monitoring for toxicity (Heparin, Nitro, Insulin, Cardizem)? @ -No Were any procedures done? @ -No Diagnosis/symptom? @ -Acute nausea, vomiting, acute possible aspiration pneumonia Acute, or Chronic, or Acute on Chronic? @ -Acute Uncomplicated (without systemic symptoms) or Complicated (systemic symptoms)? @ -Complicated Side effects of treatment? @ -No Exacerbation, Progression, or Severe Exacerbation? @ -No Poses a threat to life or bodily function? How? (Chest pain, [place], [place], pneumonia, PE, COPD, DKA, ARF, appy, cholecystitis, CVA, Diverticulitis, Homicidal, Suic idal, threat to staff... and all critical care pts) @ -No - Lab Data Result diagrams: 03/24/23 09:02 03/24/23 09:02 Lab Results 03/24/23 03/24/23 03/24/23 Range/Units 09:00 09:02 09:02 WBC 9.6 (3.8-10.6) k/uL RBC 5.04 (3.80-5.40) m/uL Hgb 13.8 (11.4-16.0) gm/dL Hct 42.0 (34.0-46.0) % MCV 83.3 (80.0-100.0) fL MCH 27.5 (25.0-35.0) pg MCHC 32.9 (31.0-37.0) g/dL RDW 14.5 (11.5-15.5) % Plt Count 201 (150-450) k/uL MPV 8.2 Neutrophils % 80 % Lymphocytes % 7 % Monocytes % 9 % Eosinophils % 2 % Basophils % 0 % Neutrophils # 7.6 (1.3-7.7) k/uL Lymphocytes # 0.7 L (1.0-4.8) k/uL Monocytes # 0.8 (0-1.0) k/uL Eosinophils # 0.2 (0-0.7) k/uL Basophils # 0.0 (0-0.2) k/uL Poikilocytosis Slight PT 10.0 (9.0-12.0) sec INR 0.9 (<1.2) APTT 22.6 (22.0-30.0) sec Sodium (137-145) mmol/L Potassium (3.5-5.1) mmol/L Chloride (98-107) mmol/L Carbon Dioxide (22-30) mmol/L Anion Gap mmol/L BUN (7-17) mg/dL Creatinine (0.52-1.04) mg/dL Est GFR (CKD-EPI)AfAm (>60 ml/min/1.73 sqM) Est GFR (CKD-EPI)NonAf (>60 ml/min/1.73 sqM) Glucose (74-99) mg/dL POC Glucose (mg/dL) 163 H (70-110) mg/dL POC Glu Registered Nurse Teacher ID [place], Luis Alberto Plasma Lactic Acid Jovan (0.7-2.0) mmol/L Calcium (8.4-10.2) mg/dL Magnesium (1.6-2.3) mg/dL Total Bilirubin (0.2-1.3) mg/dL AST (14-36) U/L ALT (4-34) U/L Alkaline Phosphatase (38-126) U/L Ammonia (<30) umol/L Troponin I (0.000-0.034) ng/mL Total Protein (6.3-8.2) g/dL Albumin (3.5-5.0) g/dL Lipase (23-300) U/L TSH (0.465-4.680) mIU/L 03/24/23 03/24/23 03/24/23 Range/Units 09:02 09:02 09:02 WBC (3.8-10.6) k/uL RBC (3.80-5.40) m/uL Hgb (11.4-16.0) gm/dL Hct (34.0-46.0) % MCV (80.0-100.0) fL MCH (25.0-35.0) pg MCHC (31.0-37.0) g/dL RDW (11.5-15.5) % Plt Count (150-450) k/uL MPV Neutrophils % % Lymphocytes % % Monocytes % % Eosinophils % % Basophils % % Neutrophils # (1.3-7.7) k/uL Lymphocytes # (1.0-4.8) k/uL Monocytes # (0-1.0) k/uL Eosinophils # (0-0.7) k/uL Basophils # (0-0.2) k/uL Poikilocytosis PT (9.0-12.0) sec INR (<1.2) APTT (22.0-30.0) sec Sodium 137 (137-145) mmol/L Potassium 4.2 (3.5-5.1) mmol/L Chloride 107 (98-107) mmol/L Carbon Dioxide 18 L (22-30) mmol/L Anion Gap 12 mmol/L BUN 24 H (7-17) mg/dL Creatinine 1.97 H (0.52-1.04) mg/dL Est GFR (CKD-EPI)AfAm 30 (>60 ml/min/1.73 sqM) Est GFR (CKD-EPI)NonAf 26 (>60 ml/min/1.73 sqM) Glucose 173 H (74-99) mg/dL POC Glucose (mg/dL) (70-110) mg/dL POC Glu Registered Nurse Teacher ID Plasma Lactic Acid Jovan 1.3 (0.7-2.0) mmol/L Calcium 10.0 (8.4-10.2) mg/dL Magnesium 2.1 (1.6-2.3) mg/dL Total Bilirubin 0.9 (0.2-1.3) mg/dL AST 51 H (14-36) U/L ALT 33 (4-34) U/L Alkaline Phosphatase 213 H (38-126) U/L Ammonia <9 (<30) umol/L Troponin I <0.012 (0.000-0.034) ng/mL Total Protein 6.4 (6.3-8.2) g/dL Albumin 3.8 (3.5-5.0) g/dL Lipase 79 (23-300) U/L TSH 1.510 (0.465-4.680) mIU/L Disposition Clinical Impression: Nausea and vomiting, Pneumonia, Aspiration into airway Disposition: ADMITTED IP TO THIS HOSP Condition: Stable Is patient prescribed a controlled substance at d/c from ED?: No Time of Disposition: 12:54 Decision to Admit Reason: Admit from EC Decision Date: 03/24/23 Decision Time: 12:54
[2023-03-24] MEDS ORDERED: NALOXONE 0.4 MG/ML 1 ML VIAL IV PRN (12:54)
[2023-03-24] MEDS ORDERED: PNEUMONIA PROTOCOL UTILIZED 1 EACH MISC PO PRN (12:56)
[2023-03-24] MEDS: BRIVARACETAM 25 MG PO SCH (17:48)
[2023-03-24] MEDS: CLOBAZAM 10 MG PO SCH (17:48)
[2023-03-24 17:56] LABS: Glucose,Whole Blood 142 mg/dL (70-110)
[2023-03-24] MEDS: INSULN ASP PRT/INSULIN ASPART 100 UNIT/ML 10 ML VIAL SQ SCH (17:57)
[2023-03-24] MEDS: THIAMINE 100 MG TAB PO SCH (17:58)
[2023-03-24] MEDS: ATORVASTATIN 10 MG TAB PO SCH (17:58)
[2023-03-24] MEDS: MONTELUKAST 10 MG TAB PO SCH (17:58)
[2023-03-24] MEDS: IPRATROPIUM-ALBUTEROL 3 ML NEB INHALATION SCH ×2 (18:09→20:38)
--- NOTE | 2023-03-24 19:16 | HP ---
HISTORY AND PHYSICAL CHIEF COMPLAINT: Nausea, vomiting, and change in mental status. HISTORY OF PRESENT ILLNESS: This is a 67-year-old woman with a past medical history of diabetes mellitus, history of chronic liver disease, and liver transplantation for MCCLURE, who was noted to have some nausea and vomiting. The patient also had change in mental status. Chest x-ray showed some possible right-sided pneumonia, aspiration is considered. The patient has multiple allergies. The patient also felt nauseated and fatigued, and the patient was admitted for further evaluation. The patient is immunosuppressed. There is no history of any fever, rigor, or chills at this time. PAST MEDICAL HISTORY: Reviewed includes diabetes mellitus, GERD, hypertension, hyperlipidemia, and history of liver transplantation. Rest of the history and rest of the chart are also reviewed. HOME MEDICATIONS: Reviewed include semaglutide, that is Ozempic. Rest of the medications are also reviewed. ALLERGIES: Multiple allergies reviewed include Cipro. Rest of the allergies are noted. FAMILY HISTORY: History of myocardial infarction in the family. SOCIAL HISTORY: Previous history of smoking. REVIEW OF SYSTEMS: Fourteen-point review is negative except as mentioned earlier. PHYSICAL EXAMINATION: VITAL SIGNS: Pulse is 80, blood pressure 110/52, respirations 18. HEENT: Conjunctivae are normal. NECK: No jugular venous distention. CARDIOVASCULAR: S1 and S2 muffled. RESPIRATORY: Breath sounds diminished at the bases. Few scattered rhonchi. ABDOMEN: Soft and nontender. LEGS: No edema. NERVOUS SYSTEM: Nonfocal. LABORATORY DATA: Creatinine 1.97. Rest of the labs are noted. ASSESSMENT: 1. Acute right lower lobe pneumonia with possible sepsis present on admission. 2. History of liver transplantation for nonalcoholic steatohepatitis. 3. Change in mental status, metabolic encephalopathy. 4. Possible aspiration. 5. Possible acute gastritis. 6. Chronic kidney disease. 7. Hypertension. 8. Hyperlipidemia. 9. History of rheumatoid arthritis. 10.History of seizure disorder. 11.Multiple complex medical issues. RECOMMENDATIONS AND DISCUSSION: In this 67-year-old woman presented with multiple complex medical issues, we will monitor the patient closely. We will initiate broad-spectrum IV antibiotics and obtain the cultures. Recommend Infectious Disease evaluation as well as Pulmonary evaluation. Bronchodilators. Resume home medications once they are confirmed. Cultures. The prognosis is guarded because of multiple complex medical issues. Further recommendations to follow. See orders for details. Discussed with the patient and family. MMODL / IJN: [id number] /
[2023-03-24 20:25] LABS: Glucose,Whole Blood 115 mg/dL (70-110)
[2023-03-24] MEDS: PANTOPRAZOLE 40 MG/10 ML VIAL IVP SCH (20:32)
[2023-03-24] MEDS: HEPARIN SODIUM,PORCINE 5,000 UNIT/ML 1 ML VIAL SQ SCH (20:32)
[2023-03-24] MEDS: LOSARTAN 50 MG TAB PO SCH (20:32)
[2023-03-24] MEDS: METOPROLOL SUCCINATE (ER) 25 MG TAB.ER.24H PO SCH (20:32)
[2023-03-24] MEDS: LACOSAMIDE 50 MG TABLET PO SCH ×2 (20:32)
[2023-03-24] MEDS ORDERED: URSODIOL 250 MG PO SCH (21:00)
--- NOTE | 2023-03-24 22:11 | P.CONS ---
History of Present Illness - Reason for Consult Consult date: 03/24/23 - History of Present Illness Patient is a 67-year-old female with a past medical history significant for diabetes mellitus type 2 hypertension hyperlipidemia COPD seizure disorder rheumatoid arthritis has not been feeling well for more than a week now the patient has been evaluated and treated in the outpatient setting by her primary care physician has been diagnosed with sinusitis and treated with Bactrim DS however patient did not have any improvement patient was complaining with episode of nausea and vomiting feeling weak and mental status changes patient seem to be confused to the who called the EMS patient denies having any headache or URI symptoms no chest pain or shortness which she did hav e a cough mild to moderate intensity with occasional yellowish sputum production no hemoptysis patient denies having any abdominal pain or diarrhea no urinary symptoms recently the patient has been evaluated on presentation to hospital the patient was afebrile patient was mildly hypoxic with supplemental oxygen white count was normal BUN/creatinine has been mildly elevated AST was mildly elevated patient did have a chest x-ray that was reported right lower lobe pneumonia patient was started on Rocephin because of multiple antibiotic allergies infectious disease was consulted for further management of antibiotic therapy Past Medical History Past Medical History: COPD, Diabetes Mellitus, GERD/Reflux, Hyperlipidemia, Hypertension, Liver Disease, Renal Disease, Rheumatoid Arthritis (RA), Seizure Disorder, Skin Disorder Additional Past Medical History / Comment(s): 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 History of Any Multi-Drug Resistant Organisms: None Reported Past Surgical History: Bowel Resection, Breast Surgery, Cholecystectomy, Hernia Repair, Hysterectomy, Tonsillectomy, Tubal Ligation Additional Past Surgical History / Comment(s): 2013 liver transplant at [facility], bowel resection d/t strangulation, L breast bx/lumpectomy-benign, abdominal hernia repair x2, R carpel tunnel release, colonoscopy/polypectomy, R foot heel spur, bilateral cataract removal with lens implants. Past Anesthesia/Blood Transfusion Reactions: No Reported Reaction Past Psychological History: No Psychological Hx Reported Smoking Status: Former smoker Past Alcohol Use History: None Reported Past Drug Use History: None Reported - Past Family History Father Family Medical History: Myocardial Infarction (VT) Additional Family Medical History / Comment(s): Father of a VT at the age of 44yrs. Mother Family Medical History: Coronary Artery Disease (CAD), Dementia, Diabetes Mellitus Additional Family Medical History / Comment(s): Mother at the age of 78yrs. Medications and Allergies Home Medications Medication Instructions Recorded Confirmed Type Calcium Carbonate/Vitamin D3 1 tab PO DAILY@1700 06/01/16 03/24/23 History [Caltrate 600 Plus D3 20 Mcg (800 Iu)] NIFEdipine [Procardia XL] 90 mg PO DAILY 06/01/16 03/24/23 History Omeprazole 20 mg PO BID-W/MEALS 06/01/16 03/24/23 History Thiamine [Vitamin B-1] 100 mg PO DAILY@1700 06/01/16 03/24/23 History Losartan [Cozaar] 50 mg PO HS 10/04/18 03/24/23 History Montelukast [Singulair] 10 mg PO DAILY@1700 10/04/18 03/24/23 History mycophenolate mofetiL [Cellcept] 750 mg PO BID-W/MEALS 10/04/18 03/24/23 History Brivaracetam [Briviact] 25 mg PO BID-W/MEALS 03/24/23 03/24/23 History Cholecalciferol [Vitamin D3 (25 50 mcg PO HS 03/24/23 03/24/23 History Mcg = 1000 Iu)] Dapagliflozin Propanediol [Farxiga] 10 mg PO DAILY 03/24/23 03/24/23 History Insulin Aspart Prot/Insuln Asp 7 units SQ AC-SUPPER 03/24/23 03/24/23 History [Novolog MIX 70-30 Flexpen] Insulin Aspart Prot/Insuln Asp 15 units SQ AC-BRKFST 03/24/23 03/24/23 History [Novolog MIX 70-30 Flexpen] Lacosamide [Vimpat] 100 mg PO BID 03/24/23 03/24/23 History Lacosamide [Vimpat] 200 mg PO BID 03/24/23 03/24/23 History Metoprolol Succinate (ER) [Toprol 25 mg PO HS 03/24/23 03/24/23 History Xl] Rosuvastatin Calcium 5 mg PO MOWEFR@1700 03/24/23 03/24/23 History Semaglutide [Ozempic] 1 mg SQ WE 03/24/23 03/24/23 History cloBAZam [Onfi] 10 mg PO BID-W/MEALS 03/24/23 03/24/23 History ursodioL [Ursodiol] 250 mg PO HS 03/24/23 03/24/23 History ursodioL [Ursodiol] 500 mg PO DAILY 03/24/23 03/24/23 History Allergies Allergy/AdvReac Type Severity Reaction Status Date / Time venom-honey bee Allergy Severe Swelling Verified 03/24/23 14:39 [bee venom (honey bee)] ciprofloxacin Allergy Rash/Hives Verified 03/24/23 14:39 codeine Allergy Rash/Hives Verified 03/24/23 14:39 erythromycin base Allergy Rash/Hives Verified 03/24/23 14:39 levofloxacin Allergy Rash/Hives Verified 03/24/23 14:39 lisinopril Allergy Rash/Hives Verified 03/24/23 14:39 metformin Allergy Swelling Verified 03/24/23 14:39 of throat moxifloxacin Allergy Rash/Hives Verified 03/24/23 14:39 Penicillins Allergy hives, Verified 03/24/23 14:39 swelling plum Allergy Unknown Verified 03/24/23 14:39 rofecoxib Allergy Rash/Hives Verified 03/24/23 14:39 Tetracyclines Allergy Rash/Hives Verified 03/24/23 14:39 Physical Exam Vitals: Vital Signs Temp Pulse Resp BP Pulse Ox 03/24/23 11:31 78 18 109/39 97 03/24/23 10:00 74 18 103/56 96 03/24/23 08:29 98.3 F 89 18 127/66 96 Intake and Output 03/23/23 03/24/23 03/24/23 22:59 06:59 14:59 Other: Weight 90.718 kg Results CBC & Chem 7: 03/24/23 09:02 03/24/23 09:02 Labs: Abnormal Lab Results - Last 24 Hours (Table) 03/24/23 03/24/23 03/24/23 Range/Units 09:00 09:02 09:02 Lymphocytes # 0.7 L (1.0-4.8) k/uL Carbon Dioxide 18 L (22-30) mmol/L BUN 24 H (7-17) mg/dL Creatinine 1.97 H (0.52-1.04) mg/dL Glucose 173 H (74-99) mg/dL POC Glucose (mg/dL) 163 H (70-110) mg/dL AST 51 H (14-36) U/L Alkaline Phosphatase 213 H (38-126) U/L Assessment and Plan Plan: 1patient presented hospital with weakness not feeling well symptom has been going on for more than a week and has been recent diagnosed with sinus infection and treated with the Bactrim no evidence of right lower lobe pneumonia likely community-acquired 2-patient symptoms of vomiting and elevated elevated creatinine could be related to Bactrim DS 3-patient with multiple antibiotic allergies that would limit the number of antibiotics safe to use 4--we will obtain sputum for Gram stain culture check a CRP and a procalcitonin 5-continue Rocephin 2 g daily while waiting for the culture to finalize We will follow on clinical condition and cultures to further adjust medication if needed Thank you for this consultation we will follow the patient along with you Dictation was produced using [employer] dictation software. please excuse any grammatical, word or spelling errors. Time with Patient: Greater than 30
[2023-03-25] MEDS: BRIVARACETAM 25 MG PO SCH (05:37)
[2023-03-25] MEDS: CLOBAZAM 10 MG PO SCH ×3 (05:38→20:45)
[2023-03-25 05:47] LABS: Glucose,Whole Blood 119 mg/dL (70-110)
[2023-03-25 06:39] LABS: Basophils % (A) 1 %; Eosinophils # (A) 0.2 k/uL (0-0.7); Eosinophils % (A) 4 %; HCT 39.4 % (34.0-46.0); Lymphocytes # (A) 0.6 k/uL (1.0-4.8); Lymphocytes % (A) 12 %; MCH 27.3 pg (25.0-35.0); MCV 82.8 fL (80.0-100.0); Mean Platelet Volume 8.9; Monocytes # (A) 0.8 k/uL (0-1.0); Monocytes % (A) 15 %; Neutrophils # (A) 3.6 k/uL (1.3-7.7); Neutrophils % (A) 65 %; Platelet Count 151 k/uL (150-450); Poikilocytosis Slight; RBC 4.76 m/uL (3.80-5.40); RDW 14.7 % (11.5-15.5); WBC 5.5 k/uL (3.8-10.6)
[2023-03-25 06:57] LABS: ALT 26 U/L (4-34); AST 33 U/L (14-36); African American GFR (CKD) 42 (>60 ml/min/1.73 sqM); Albumin/Globulin Ratio 1.2; Alkaline Phosphatase 166 U/L (38-126); Anion Gap 7 mmol/L; Blood Urea Nitrogen 27 mg/dL (7-17); C Reactive Protein 4.5 mg/dL (<1.0); Calcium 9.3 mg/dL (8.4-10.2); Carbon Dioxide 19 mmol/L (22-30); Chloride 108 mmol/L (98-107); Globulin 2.5 g/dL; Glucose 111 mg/dL (74-99); Non-African American GFR(CKD) 37 (>60 ml/min/1.73 sqM); Potassium 4.6 mmol/L (3.5-5.1); Sodium 134 mmol/L (137-145); Total Bilirubin 0.8 mg/dL (0.2-1.3); Total Protein 5.5 g/dL (6.3-8.2)
--- NOTE | 2023-03-25 07:05 | XR ---
EXAMINATION TYPE: XR chest 1V portable DATE OF EXAM: 03/25/2023 HISTORY: Shortness of breath. COMPARISON: 1123 TECHNIQUE: Single view of the chest is submitted. FINDINGS: Demonstrated are scattered senescent parenchymal change. Patchy right lower lobe infiltrate. Overall stable appearance. The heart is stable. Hilar and mediastinal structures are within normal limits. Degenerative changes are seen of the dorsal spine. IMPRESSION: 1. Patchy right lower lobe infiltrate. Overall stable appearance.
[2023-03-25] MEDS ORDERED: PANTOPRAZOLE 40 MG TABLET PO SCH (07:30)
[2023-03-25] MEDS: IPRATROPIUM-ALBUTEROL 3 ML NEB INHALATION SCH ×4 (08:16→20:14)
[2023-03-25] MEDS: INSULN ASP PRT/INSULIN ASPART 100 UNIT/ML 10 ML VIAL SQ SCH ×2 (08:42→17:15)
[2023-03-25] MEDS: PANTOPRAZOLE 40 MG/10 ML VIAL IVP SCH ×2 (08:43→20:44)
[2023-03-25] MEDS: LACOSAMIDE 50 MG TABLET PO SCH ×4 (08:45→20:44)
[2023-03-25] MEDS: DAPAGLIFLOZIN PROPANEDIOL 10 MG TABLET PO SCH (08:45)
[2023-03-25] MEDS: NIFEdipine XL 90 MG TAB.ER.24 PO SCH (08:46)
[2023-03-25] MEDS: HEPARIN SODIUM,PORCINE 5,000 UNIT/ML 1 ML VIAL SQ SCH ×2 (08:47→20:45)
[2023-03-25] MEDS ORDERED: URSODIOL 250 MG PO SCH (09:00)
--- NOTE | 2023-03-25 09:48 | P.CNPUL ---
History of Present Illness Consult date: 03/25/23 Requesting physician: Eyal E Bg Reason for consult: abnormal CXR/CT Chief complaint: Nausea, vomiting, chills History of present illness: This is a pleasant 67-year-old female patient with a known history of diabetes mellitus, hyperlipidemia, hypertension, rheumatoid arthritis, seizure disorders, previous liver transplant for MCCLURE performed at [facility] in 2013 and remains on CellCept. This week she been having issues with sinus congestion and was placed on Bactrim by her PCP. Yesterday she started having nausea, vomiting and choking and gagging and was somewhat confused. Chest x-ray did reveal suspected right lower lobe pneumonia. Sputum culture pending. White count 5.5. Hemoglobin 13.0. Platelets 151. Sodium 134. Potassium 4.6. Bicarb 19. BUN 27. Creatinine 1.49. AST 33. ALT 26. Ammonia level less than 9. C-reactive protein 4.5. She's been initiated on ceftriaxone. She has multiple antibiotic ALLERGIES. She is seen today in consultation on the regular medical floor. She is currently sitting up in bed. Awake and alert in no acute distress. No further nausea or vomiting this morning. No fever or chills. He is maintaining good O2 saturations in the mid 90s on 2 L/m per nasal cannula. She's afebrile. Hemodynamically stable. Review of Systems REVIEW OF SYSTEMS: CONSTITUTIONAL: Denies any recent significant weight loss or weight gain. EYES: Denies change in vision. EARS, NOSE, MOUTH, THROAT: Denies headaches, denies sore throat. CARDIOVASCULAR: Denies chest pain, palpitations or syncopal episodes. RESPIRATORY: Denies shortness of breath, cough, congestion or hemoptysis. GASTROINTESTINAL: Positive for nausea and vomiting GENITOURINARY: Denies hematuria, denies infections. MUSKULOSKELETAL: Denies pain, denies swelling. INTEGUMENTARY: Denies rash, denies eczema. NEUROLOGICAL: Positive for altered mental status. Denies recent memory loss, no recent seizure activity. PSYCHIATRIC: Denies anxiety, denies depression. HEMATOLOGIC/LYMPHATIC: Denies anemia, denies enlarged lymph nodes. 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 History of Any Multi-Drug Resistant Organisms: None Reported Past Surgical History: Bowel Resection, Breast Surgery, Cholecystectomy, Hernia Repair, Hysterectomy, Tonsillectomy, Tubal Ligation Additional Past Surgical History / Comment(s): 2013 liver transplant at [facility], bowel resection d/t strangulation, L breast bx/lumpectomy-benign, abdominal hernia repair x2, R carpel tunnel release, colonoscopy/polypectomy, R foot heel spur, bilateral cataract removal with lens implants. Past Anesthesia/Blood Transfusion Reactions: No Reported Reaction Past Psychological History: No Psychological Hx Reported Smoking Status: Former smoker Past Alcohol Use History: None Reported Past Drug Use History: None Reported - Past Family History Father Family Medical History: Myocardial Infarction (AK) Additional Family Medical History / Comment(s): Father of a [place] at the age of 44yrs. Mother Family Medical History: Coronary Artery Disease (CAD), Dementia, Diabetes Lucretia jay Additional Family Medical History / Comment(s): Mother at the age of 78yrs. Medications and Allergies Home Medications Medication Instructions Recorded Confirmed Type Calcium Carbonate/Vitamin D3 1 tab PO DAILY@1700 06/01/16 03/24/23 History [Caltrate 600 Plus D3 20 Mcg (800 Iu)] NIFEdipine [Procardia XL] 90 mg PO DAILY 06/01/16 03/24/23 History Omeprazole 20 mg PO BID-W/MEALS 06/01/16 03/24/23 History Thiamine [Vitamin B-1] 100 mg PO DAILY@1700 06/01/16 03/24/23 History Losartan [Cozaar] 50 mg PO HS 10/04/18 03/24/23 History Montelukast [Singulair] 10 mg PO DAILY@1700 10/04/18 03/24/23 History mycophenolate mofetiL [Cellcept] 750 mg PO BID-W/MEALS 10/04/18 03/24/23 History Brivaracetam [Briviact] 25 mg PO BID-W/MEALS 03/24/23 03/24/23 History Cholecalciferol [Vitamin D3 (25 50 mcg PO HS 03/24/23 03/24/23 History Mcg = 1000 Iu)] Dapagliflozin Propanediol [Farxiga] 10 mg PO DAILY 03/24/23 03/24/23 History Insulin Aspart Prot/Insuln Asp 7 units SQ AC-SUPPER 03/24/23 03/24/23 History [Novolog MIX 70-30 Flexpen] Insulin Aspart Prot/Insuln Asp 15 units SQ AC-BRKFST 03/24/23 03/24/23 History [Novolog MIX 70-30 Flexpen] Lacosamide [Vimpat] 100 mg PO BID 03/24/23 03/24/23 History Lacosamide [Vimpat] 200 mg PO BID 03/24/23 03/24/23 History Metoprolol Succinate (ER) [Toprol 25 mg PO HS 03/24/23 03/24/23 History Xl] Rosuvastatin Calcium 5 mg PO MOWEFR@1700 03/24/23 03/24/23 History Semaglutide [Ozempic] 1 mg SQ WE 03/24/23 03/24/23 History cloBAZam [Onfi] 10 mg PO BID-W/MEALS 03/24/23 03/24/23 History ursodioL [Ursodiol] 250 mg PO HS 03/24/23 03/24/23 History ursodioL [Ursodiol] 500 mg PO DAILY 03/24/23 03/24/23 History Allergies Allergy/AdvReac Type Severity Reaction Status Date / Time venom-honey bee Allergy Severe Swelling Verified 03/24/23 14:39 [bee venom (honey bee)] ciprofloxacin Allergy Rash/Hives Verified 03/24/23 14:39 codeine Allergy Rash/Hives Verified 03/24/23 14:39 erythromycin base Allergy Rash/Hives Verified 03/24/23 14:39 levofloxacin Allergy Rash/Hives Verified 03/24/23 14:39 lisinopril Allergy Rash/Hives Verified 03/24/23 14:39 metformin Allergy Swelling Verified 03/24/23 14:39 of throat moxifloxacin Allergy Rash/Hives Verified 03/24/23 14:39 Penicillins Allergy hives, Verified 03/24/23 14:39 swelling plum Allergy Unknown Verified 03/24/23 14:39 rofecoxib Allergy Rash/Hives Verified 03/24/23 14:39 Tetracyclines Allergy Rash/Hives Verified 03/24/23 14:39 Physical Exam Vitals: Vital Signs Temp Pulse Pulse Resp BP BP Pulse Ox 03/25/23 08:26 86 03/25/23 08:16 84 95 03/25/23 06:40 97.6 F 83 18 105/66 95 03/25/23 00:50 97.7 F 83 18 99/58 92 L 03/24/23 19:50 98.7 F 03/24/23 19:47 87 18 97/61 93 L 03/24/23 18:24 89 03/24/23 18:15 98 03/24/23 18:12 83 03/24/23 14:30 78 104/51 95 03/24/23 14:00 80 110/52 96 03/24/23 13:30 79 106/53 94 L 03/24/23 13:25 77 106/53 93 L 03/24/23 11:31 78 18 109/39 97 03/24/23 10:00 74 18 103/56 96 Intake and Output 03/24/23 03/25/23 03/25/23 22:59 06:59 14:59 Intake Total 340 Output Total 1692 Balance -1352 Intake: Oral 340 Output: Urine 875 Post Void Residual 817 Other: Weight 90.718 kg GENERAL EXAM: Alert, pleasant 67-year-old female, on 2 L nasal cannula, comfortable in no apparent distress. HEAD: Normocephalic. EYES: Normal reaction of pupils, equal size. NOSE: Clear with pink turbinates. THROAT: No erythema or exudates. NECK: No masses, no JVD. CHEST: No chest wall deformity. LUNGS: Equal air entry with scattered rhonchi in the right lung base. CVS: S1 and S2 normal with no audible murmur, regular rhythm. ABDOMEN: No hepatosplenomegaly, normal bowel sounds, no guarding or rigidity. SPINE: No scoliosis or deformity SKIN: No rashes CENTRAL NERVOUS SYSTEM: No focal deficits, tone is normal in all 4 extremities. EXTREMITIES: There is no peripheral edema. No clubbing, no cyanosis. Peripheral pulses are intact. Results - Laboratory Findings CBC and BMP: 03/25/23 06:05 03/25/23 06:05 PT/INR, D-dimer PT 10.0 sec (9.0-12.0) 03/24/23 09:02 INR 0.9 (<1.2) 03/24/23 09:02 Abnormal lab findings: Abnormal Labs 03/24/23 03/24/23 03/24/23 09:00 09:02 09:02 Lymphocytes # 0.7 L Sodium Chloride Carbon Dioxide 18 L BUN 24 H Creatinine 1.97 H Glucose 173 H POC Glucose (mg/dL) 163 H AST 51 H Alkaline Phosphatase 213 H C-Reactive Protein Total Protein Albumin 03/24/23 03/24/23 03/25/23 17:54 20:23 05:46 Lymphocytes # Sodium Chloride Carbon Dioxide BUN Creatinine Glucose POC Glucose (mg/dL) 142 H 115 H 119 H AST Alkaline Phosphatase C-Reactive Protein Total Protein Albumin 03/25/23 03/25/23 06:05 06:05 Lymphocytes # 0.6 L Sodium 134 L Chloride 108 H Carbon Dioxide 19 L BUN 27 H Creatinine 1.49 H Glucose 111 H POC Glucose (mg/dL) AST Alkaline Phosphatase 166 H C-Reactive Protein 4.5 H Total Protein 5.5 L Albumin 3.0 L - Diagnostic Findings Chest x-ray: image reviewed Assessment and Plan Assessment: Acute hypoxemic respiratory failure secondary to suspected aspiration pneumonia secondary to episodes of nausea, vomiting, choking and gagging Non-anion gap metabolic acidosis due to above Acute kidney injury secondary to dehydration Recent sinus infection being treated with Bactrim in the outpatient setting History of MCCLURE, requiring liver transplant in 2013 at [facility], currently on CellCept Seizure disorder Diabetes mellitus Hyperlipidemia Hypertension Rheumatoid arthritis Chronic kidney disease stage III Former smoker Plan: The patient was seen and evaluated Chest x-rays, medications and labs reviewed Continue ceftriaxone Initiate normal saline at 100 ML's per hour Continue her home medications Heparin for DVT prophylaxis Titrate the FiO2 as tolerated Increase her activity as tolerated We'll continue to follow and make further recommendations based on her clinical status I have personally seen and examined the patient, performed the documentation and the assessment and plan as written. Number of minutes spent on the visit: 20.
[2023-03-25 11:21] LABS: Glucose,Whole Blood 127 mg/dL (70-110)
[2023-03-25 12:14] LABS: Appearance,Urine Clear (Clear); Bacteria,Urine Rare /hpf; Bilirubin,Urine Negative (Negative); Blood,Urine Small (Negative); Color,Urine Yellow; Glucose,Urine (UA) 4+ (Negative); Ketones,Urine Negative (Negative); Leukocyte Esterase,Urine Negative (Negative); Mucus,Urine Rare /hpf; Nitrite,Urine Negative (Negative); Protein,Urine Negative (Negative); RBC,Urine 14 /hpf (0-5); Specific Gravity,Urine 1.016 (1.001-1.035); Squamous Epithelial Cell,Urine 1 /hpf (0-4); Urobilinogen,Urine <2.0 mg/dL (<2.0); WBC,Urine 2 /hpf (0-5)
[2023-03-25] MEDS: URSODIOL 250 MG PO SCH (12:40)
[2023-03-25 16:26] LABS: Glucose,Whole Blood 127 mg/dL (70-110)
[2023-03-25] MEDS: MONTELUKAST 10 MG TAB PO SCH (17:15)
[2023-03-25] MEDS: THIAMINE 100 MG TAB PO SCH (17:29)
[2023-03-25 20:42] LABS: Glucose,Whole Blood 116 mg/dL (70-110)
[2023-03-25] MEDS: METOPROLOL SUCCINATE (ER) 25 MG TAB.ER.24H PO SCH (20:44)
[2023-03-25] MEDS: LOSARTAN 50 MG TAB PO SCH (20:44)
--- NOTE | 2023-03-25 21:19 | PN ---
PROGRESS NOTE DATE OF SERVICE: 03/25/2023 SUBJECTIVE: This is a 67-year-old woman, who was admitted with multiple complex medical symptoms, had possible acute right lower lobe pneumonia with possible sepsis. The patient on broad spectrum IV antibiotics. The patient has multiple antibiotic allergies. Infectious Disease and Pulmonary following the patient closely. The cultures are negative. PAST MEDICAL HISTORY: Reviewed. REVIEW OF SYSTEMS: A 14-point review is negative except as mentioned earlier. CURRENT MEDICATIONS: Reviewed include Rocephin. PHYSICAL EXAMINATION: VITAL SIGNS: Pulse is 109, blood pressure 130/65, respirations 18. CHEST: A few scattered rhonchi and crackles. ABDOMEN: Soft. NERVOUS SYSTEM: Nonfocal. LABORATORY DATA: Creatinine 1.49. LFTs are noted. ASSESSMENT: 1. Acute right lower lobe pneumonia with possible sepsis present on admission. 2. History of liver transplant for nonalcoholic steatohepatitis. 3. Change in mental status, acute metabolic encephalopathy. 4. Possible aspiration. 5. Possible acute gastritis. 6. Chronic kidney disease, stage III. 7. Hypertension. 8. Hyperlipidemia. 9. History of rheumatoid arthritis. 10.History of seizure disorder. 11.Multiple complex medical issues. RECOMMENDATIONS: Recommend to continue current management. Continue with antibiotics. Continue rest of medications including seizure medications. Follow the cultures. Mycoplasma pneumonia testing. DVT prophylaxis. See orders for further details. Prognosis guarded. Further recommendations to follow. MMODL / IJN: [id number] /
[2023-03-26] MEDS: SODIUM CHLORIDE 0.9% 1,000 ML IV SCH ×4 (01:19→17:53)
[2023-03-26] MEDS: URSODIOL 250 MG PO SCH ×3 (01:20→20:02)
[2023-03-26 05:51] LABS: Glucose,Whole Blood 142 mg/dL (70-110)
[2023-03-26] MEDS: INSULN ASP PRT/INSULIN ASPART 100 UNIT/ML 10 ML VIAL SQ SCH ×2 (06:32→17:56)
[2023-03-26] MEDS: CLOBAZAM 10 MG PO SCH ×2 (06:32→17:52)
[2023-03-26] MEDS: IPRATROPIUM-ALBUTEROL 3 ML NEB INHALATION SCH ×4 (07:51→20:03)
[2023-03-26] MEDS: HEPARIN SODIUM,PORCINE 5,000 UNIT/ML 1 ML VIAL SQ SCH ×2 (08:33→20:02)
[2023-03-26] MEDS: LACOSAMIDE 50 MG TABLET PO SCH ×4 (08:33→20:02)
[2023-03-26] MEDS: DAPAGLIFLOZIN PROPANEDIOL 10 MG TABLET PO SCH (08:34)
[2023-03-26] MEDS: NIFEdipine XL 90 MG TAB.ER.24 PO SCH (08:34)
[2023-03-26 08:36] LABS: Basophils % (A) 1 %; Eosinophils # (A) 0.2 k/uL (0-0.7); Eosinophils % (A) 6 %; HCT 35.5 % (34.0-46.0); HGB 12.1 gm/dL (11.4-16.0); Lymphocytes # (A) 0.6 k/uL (1.0-4.8); Lymphocytes % (A) 14 %; MCHC 33.9 g/dL (31.0-37.0); MCV 82.6 fL (80.0-100.0); Mean Platelet Volume 7.9; Monocytes # (A) 0.5 k/uL (0-1.0); Monocytes % (A) 11 %; Neutrophils # (A) 2.7 k/uL (1.3-7.7); Neutrophils % (A) 66 %; Platelet Count 176 k/uL (150-450); Poikilocytosis Slight; RDW 14.7 % (11.5-15.5); WBC 4.1 k/uL (3.8-10.6)
[2023-03-26] MEDS: PANTOPRAZOLE 40 MG/10 ML VIAL IVP SCH ×2 (08:48→20:02)
[2023-03-26 08:55] LABS: ALT 22 U/L (4-34); AST 24 U/L (14-36); African American GFR (CKD) 44 (>60 ml/min/1.73 sqM); Albumin 3.1 g/dL (3.5-5.0); Albumin/Globulin Ratio 1.3; Alkaline Phosphatase 163 U/L (38-126); Anion Gap 8 mmol/L; Blood Urea Nitrogen 23 mg/dL (7-17); Calcium 9.5 mg/dL (8.4-10.2); Carbon Dioxide 19 mmol/L (22-30); Chloride 109 mmol/L (98-107); Globulin 2.4 g/dL; Glucose 75 mg/dL (74-99); Non-African American GFR(CKD) 38 (>60 ml/min/1.73 sqM); Sodium 136 mmol/L (137-145); Total Bilirubin 0.5 mg/dL (0.2-1.3); Total Protein 5.5 g/dL (6.3-8.2)
[2023-03-26 11:12] LABS: Glucose,Whole Blood 128 mg/dL (70-110)
--- NOTE | 2023-03-26 11:40 | P.PN ---
Subjective Progress Note Date: 03/26/23 This is a pleasant 67-year-old female patient with a known history of diabetes mellitus, hyperlipidemia, hypertension, rheumatoid arthritis, seizure disorders, previous liver transplant for MCCLURE performed at [facility] in 2013 and remains on CellCept. This week she been having issues with sinus congestion and was placed on Bactrim by her PCP. Yesterday she started having nausea, vomiting and choking and gagging and was somewhat confused. Chest x-ray did reveal suspected right lower lobe pneumonia. Sputum culture pending. White count 5.5. Hemoglobin 13.0. Platelets 151. Sodium 134. Potassium 4.6. Bicarb 19. BUN 27. Creatinine 1.49. AST 33. ALT 26. Ammonia level less than 9. C-reactive protein 4.5. She's been initiated on ceftriaxone. She has multiple antibiotic ALLERGIES. She is seen today in consultation on the regular medical floor. She is currently sitting up in bed. Awake and alert in no acute distress. No further nausea or vomiting this morning. No fever or chills. He is maintaining good O2 saturations in the mid 90s on 2 L/m per nasal cannula. She's afebrile. Hemodynamically stable. The patient is seen today 03/26/2023 in follow-up on the regular medical floor. She is awake and alert in no acute distress. Resting fairly comfortably in bed. She is slightly better today compared to yesterday. She is maintaining good O2 saturations in the mid 90s on 2 L/m per nasal cannula. Afebrile. Hemodynamically stable. She is continued on ceftriaxone. Blood and sputum cultures pending. White count 4.1. Hemoglobin 12.1. Platelets 176. Sodium 1 36. Potassium 4.0. Bicarb 19. BUN 23. Creatinine 1.44. Objective - Vital Signs Vital signs: Vital Signs Temp 98.4 F 03/26/23 06:35 Pulse 80 03/26/23 08:07 Resp 18 03/26/23 06:35 BP 99/63 03/26/23 06:35 Pulse Ox 95 03/26/23 07:52 FiO2 Intake & Output 03/25/23 03/26/23 03/26/23 18:59 06:59 18:59 Other: Voiding Method Toilet # Voids 1 2 - Exam GENERAL EXAM: Alert, oriented, 67-year-old female, on 2 L nasal cannula, comfortable in no apparent distress. HEAD: Normocephalic. EYES: Normal reaction of pupils, equal size. NOSE: Clear with pink turbinates. THROAT: No erythema or exudates. NECK: No masses, no JVD. CHEST: No chest wall deformity. LUNGS: Equal air entry with scattered rhonchi in the right lung base. CVS: S1 and S2 normal with no audible murmur, regular rhythm. ABDOMEN: No hepatosplenomegaly, normal bowel sounds, no guarding or rigidity. SPINE: No scoliosis or deformity SKIN: No rashes CENTRAL NERVOUS SYSTEM: No focal deficits, tone is normal in all 4 extremities. EXTREMITIES: There is no peripheral edema. No clubbing, no cyanosis. Peripheral pulses are intact. - Labs CBC & Chem 7: 03/26/23 07:57 03/26/23 07:57 Labs: Abnormal Lab Results - Last 24 Hours (Table) 03/25/23 03/25/23 03/25/23 Range/Units 11:00 14:31 16:24 Lymphocytes # (1.0-4.8) k/uL Sodium (137-145) mmol/L Chloride (98-107) mmol/L Carbon Dioxide (22-30) mmol/L BUN (7-17) mg/dL Creatinine (0.52-1.04) mg/dL POC Glucose (mg/dL) 127 H (70-110) mg/dL Alkaline Phosphatase (38-126) U/L Total Protein (6.3-8.2) g/dL Albumin (3.5-5.0) g/dL Procalcitonin 0.46 H (0.02-0.09) ng/mL Urine Glucose (UA) 4+ H (Negative) Urine Blood Small H (Negative) Urine RBC 14 H (0-5) /hpf Urine Bacteria Rare H (None) /hpf Urine Mucus Rare H (None) /hpf 03/25/23 03/26/23 03/26/23 Range/Units 20:41 05:50 07:57 Lymphocytes # 0.6 L (1.0-4.8) k/uL Sodium (137-145) mmol/L Chloride (98-107) mmol/L Carbon Dioxide (22-30) mmol/L BUN (7-17) mg/dL Creatinine (0.52-1.04) mg/dL POC Glucose (mg/dL) 116 H 142 H (70-110) mg/dL Alkaline Phosphatase (38-126) U/L Total Protein (6.3-8.2) g/dL Albumin (3.5-5.0) g/dL Procalcitonin (0.02-0.09) ng/mL Urine Glucose (UA) (Negative) Urine Blood (Negative) Urine RBC (0-5) /hpf Urine Bacteria (None) /hpf Urine Mucus (None) /hpf 03/26/23 03/26/23 Range/Units 07:57 11:10 Lymphocytes # (1.0-4.8) k/uL Sodium 136 L (137-145) mmol/L Chloride 109 H (98-107) mmol/L Carbon Dioxide 19 L (22-30) mmol/L BUN 23 H (7-17) mg/dL Creatinine 1.44 H (0.52-1.04) mg/dL POC Glucose (mg/dL) 128 H (70-110) mg/dL Alkaline Phosphatase 163 H (38-126) U/L Total Protein 5.5 L (6.3-8.2) g/dL Albumin 3.1 L (3.5-5.0) g/dL Procalcitonin (0.02-0.09) ng/mL Urine Glucose (UA) (Negative) Urine Blood (Negative) Urine RBC (0-5) /hpf Urine Bacteria (None) /hpf Urine Mucus (None) /hpf Microbiology - Last 24 Hours (Table) 03/24/23 13:30 Blood Culture - Preliminary Blood 03/24/23 13:15 Blood Culture - Preliminary Blood 03/24/23 18:22 Gram Stain - Preliminary Sputum Assessment and Plan Assessment: Acute hypoxemic respiratory failure secondary to suspected aspiration pneumonia secondary to episodes of nausea, vomiting, choking and gagging Non-anion gap metabolic acidosis due to above Acute kidney injury secondary to dehydration Recent sinus infection being treated with Bactrim in the outpatient setting History of MCCLURE, requiring liver transplant in 2013 at [facility], currently on CellCept Seizure disorder Diabetes mellitus Hyperlipidemia Hypertension Rheumatoid arthritis Chronic kidney disease stage III Former smoker Plan: The patient was seen and evaluated Medications and labs reviewed Continue ceftriaxone Cultures pending Heparin for DVT prophylaxis Titrate the FiO2 as tolerated Increase her activity as tolerated We'll continue to follow I have personally seen and examined the patient, performed the documentation and the assessment and plan as written. Number of minutes spent on the visit: 10.
[2023-03-26 16:11] LABS: Glucose,Whole Blood 117 mg/dL (70-110)
--- NOTE | 2023-03-26 16:52 | P.PN ---
Subjective Progress Note Date: 03/25/23 Principal diagnosis: Pneumonia Patient is a 67-year-old female with a past medical history significant for diabetes mellitus type 2 hypertension hyperlipidemia COPD seizu re disorder rheumatoid arthritis has not been feeling well for more than a week and treated in outpatient setting with Bactrim for possible sinusitis presented to hospital with nausea and vomiting and evidence of right lower lobe pneumonia. On today's evaluation that is 03/25/2023, the patient is afebrile the patient is breathing comfortably on room a bit denies having any chest pain patient cough and decreased in intensity no further nausea no vomiting abdominal pain and no diarrhea. Patient did have a hemoglobin of 13.5, white count 5.5 creatinine is 1.49 pro calcitonin 0.46, blood and sputum cultures currently pending Objective - Vital Signs Vital signs: Vital Signs Temp 98.6 F 03/25/23 13:05 Pulse 82 03/25/23 16:01 Resp 18 03/25/23 13:05 BP 113/69 03/25/23 13:05 Pulse Ox 96 03/25/23 13:05 FiO2 Intake & Output 03/24/23 03/25/23 03/25/23 18:59 06:59 18:59 Intake Total 340 Output Total 1692 Balance -1352 Weight 90.718 kg 90.718 kg Intake: Oral 340 Output: Urine 875 Post Void Residual 817 Other: # Voids 1 - Exam GENERAL DESCRIPTION: An elderly female lying in bed in no distress RESPIRATORY SYSTEM: Unlabored breathing , decreased breath sounds at bases HEART: S1 S2 regular rate and rhythm , ABDOMEN: Soft , no tenderness EXTREMITIES: No edema feet - Labs CBC & Chem 7: 03/26/23 07:57 03/26/23 07:57 Labs: Abnormal Lab Results - Last 24 Hours (Table) 03/24/23 03/24/23 03/25/23 Range/Units 17:54 20:23 05:46 Lymphocytes # (1.0-4.8) k/uL Sodium (137-145) mmol/L Chloride (98-107) mmol/L Carbon Dioxide (22-30) mmol/L BUN (7-17) mg/dL Creatinine (0.52-1.04) mg/dL Glucose (74-99) mg/dL POC Glucose (mg/dL) 142 H 115 H 119 H (70-110) mg/dL Alkaline Phosphatase (38-126) U/L C-Reactive Protein (<1.0) mg/dL Total Protein (6.3-8.2) g/dL Albumin (3.5-5.0) g/dL Urine Glucose (UA) (Negative) Urine Blood (Negative) Urine RBC (0-5) /hpf Urine Bacteria (None) /hpf Urine Mucus (None) /hpf 03/25/23 03/25/23 03/25/23 Range/Units 06:05 06:05 11:00 Lymphocytes # 0.6 L (1.0-4.8) k/uL Sodium 134 L (137-145) mmol/L Chloride 108 H (98-107) mmol/L Carbon Dioxide 19 L (22-30) mmol/L BUN 27 H (7-17) mg/dL Creatinine 1.49 H (0.52-1.04) mg/dL Glucose 111 H (74-99) mg/dL POC Glucose (mg/dL) (70-110) mg/dL Alkaline Phosphatase 166 H (38-126) U/L C-Reactive Protein 4.5 H (<1.0) mg/dL Total Protein 5.5 L (6.3-8.2) g/dL Albumin 3.0 L (3.5-5.0) g/dL Urine Glucose (UA) 4+ H (Negative) Urine Blood Small H (Negative) Urine RBC 14 H (0-5) /hpf Urine Bacteria Rare H (None) /hpf Urine Mucus Rare H (None) /hpf 03/25/23 Range/Units 11:20 Lymphocytes # (1.0-4.8) k/uL Sodium (137-145) mmol/L Chloride (98-107) mmol/L Carbon Dioxide (22-30) mmol/L BUN (7-17) mg/dL Creatinine (0.52-1.04) mg/dL Glucose (74-99) mg/dL POC Glucose (mg/dL) 127 H (70-110) mg/dL Alkaline Phosphatase (38-126) U/L C-Reactive Protein (<1.0) mg/dL Total Protein (6.3-8.2) g/dL Albumin (3.5-5.0) g/dL Urine Glucose (UA) (Negative) Urine Blood (Negative) Urine RBC (0-5) /hpf Urine Bacteria (None) /hpf Urine Mucus (None) /hpf Microbiology - Last 24 Hours (Table) 03/24/23 18:22 Gram Stain - Preliminary Sputum Assessment and Plan (1) Pneumonia Current Visit: Yes Status: Acute Code(s): J18.9 - PNEUMONIA, UNSPECIFIED ORGANISM SNOMED Code(s): 405688154 Plan: 1patient presented hospital with weakness not feeling well symptom has been going on for more than a week and has been recent diagnosed with sinus infection and treated with the Bactrim no evidence of right lower lobe pneumonia likely community-acquired 2--patient with multiple antibiotic allergies that would limit the number of antibiotics safe to use 3patient did have elevated procalcitonin, blood and sputum cultures can be pending 4patient to Rocephin 2 g daily while waiting for the culture to finalize Dictation was produced using [employer] dictation software. please excuse any grammatical, word or spelling errors. Time with Patient: Less than 30
--- NOTE | 2023-03-26 16:53 | P.PN ---
Subjective Progress Note Date: 03/26/23 Principal diagnosis: Pneumonia Patient is a 67-year-old female with a past medical history significant for diabetes mellitus type 2 hypertension hyperlipidemia COPD seizu re disorder rheumatoid arthritis has not been feeling well for more than a week and treated in outpatient setting with Bactrim for possible sinusitis presented to hospital with nausea and vomiting and evidence of right lower lobe pneumonia. On today's evaluation that is 03/26/2023, the patient remains to be afebrile the patient is breathing comfortably on room air, the patient denies having any ch est pain patient cough has decreased in intensity, the patient denies any further nausea no vomiting abdominal pain and no diarrhea. Patient did have a hemoglobin of 12.1, white count 4.1 creatinine is 1.44 pro calcitonin 0.46, blood and sputum cultures currently pending Objective - Vital Signs Vital signs: Vital Signs Temp 98.2 F 03/26/23 13:30 Pulse 80 03/26/23 16:24 Resp 16 03/26/23 13:30 BP 104/61 03/26/23 13:30 Pulse Ox 97 03/26/23 13:30 FiO2 Intake & Output 03/25/23 03/26/23 03/26/23 18:59 06:59 18:59 Other: Voiding Method Toilet Toilet # Voids 1 2 - Exam GENERAL DESCRIPTION: An elderly female lying in bed in no distress RESPIRATORY SYSTEM: Unlabored breathing , decreased breath sounds at bases HEART: S1 S2 regular rate and rhythm , ABDOMEN: Soft , no tenderness EXTREMITIES: No edema feet - Labs CBC & Chem 7: 03/26/23 07:57 03/26/23 07:57 Labs: Abnormal Lab Results - Last 24 Hours (Table) 03/25/23 03/25/23 03/26/23 Range/Units 14:31 20:41 05:50 Lymphocytes # (1.0-4.8) k/uL Sodium (137-145) mmol/L Chloride (98-107) mmol/L Carbon Dioxide (22-30) mmol/L BUN (7-17) mg/dL Creatinine (0.52-1.04) mg/dL POC Glucose (mg/dL) 116 H 142 H (70-110) mg/dL Alkaline Phosphatase (38-126) U/L Total Protein (6.3-8.2) g/dL Albumin (3.5-5.0) g/dL Procalcitonin 0.46 H (0.02-0.09) ng/mL 03/26/23 03/26/23 03/26/23 Range/Units 07:57 07:57 11:10 Lymphocytes # 0.6 L (1.0-4.8) k/uL Sodium 136 L (137-145) mmol/L Chloride 109 H (98-107) mmol/L Carbon Dioxide 19 L (22-30) mmol/L BUN 23 H (7-17) mg/dL Creatinine 1.44 H (0.52-1.04) mg/dL POC Glucose (mg/dL) 128 H (70-110) mg/dL Alkaline Phosphatase 163 H (38-126) U/L Total Protein 5.5 L (6.3-8.2) g/dL Albumin 3.1 L (3.5-5.0) g/dL Procalcitonin (0.02-0.09) ng/mL 03/26/23 Range/Units 16:08 Lymphocytes # (1.0-4.8) k/uL Sodium (137-145) mmol/L Chloride (98-107) mmol/L Carbon Dioxide (22-30) mmol/L BUN (7-17) mg/dL Creatinine (0.52-1.04) mg/dL POC Glucose (mg/dL) 117 H (70-110) mg/dL Alkaline Phosphatase (38-126) U/L Total Protein (6.3-8.2) g/dL Albumin (3.5-5.0) g/dL Procalcitonin (0.02-0.09) ng/mL Microbiology - Last 24 Hours (Table) 03/24/23 18:22 Gram Stain - Preliminary Sputum Sputum Culture - Preliminary 03/24/23 13:30 Blood Culture - Preliminary Blood 03/24/23 13:15 Blood Culture - Preliminary Blood Assessment and Plan (1) Pneumonia Current Visit: Yes Status: Acute Code(s): J18.9 - PNEUMONIA, UNSPECIFIED ORG ANISM SNOMED Code(s): 792746472 Plan: 1patient presented hospital with weakness not feeling well symptom has been going on for more than a week and has been recent diagnosed with sinus infection and treated with the Bactrim no evidence of right lower lobe pneumonia likely community-acquired 2--patient with multiple antibiotic allergies that would limit the number of antibiotics safe to use 3patient did have elevated procalcitonin, blood and sputum cultures can be pending 4patient seemed to have show something improvement and will continue with Rocephin 2 g daily while waiting for the culture to finalize and monitor clinical course closely Dictation was produced using [employer] dictation software. please excuse any grammatical, word or spelling errors. Time with Patient: Less than 30
[2023-03-26] MEDS: THIAMINE 100 MG TAB PO SCH (17:50)
[2023-03-26] MEDS: MONTELUKAST 10 MG TAB PO SCH (17:51)
[2023-03-26] MEDS: METOPROLOL SUCCINATE (ER) 25 MG TAB.ER.24H PO SCH (20:02)
[2023-03-26] MEDS: LOSARTAN 50 MG TAB PO SCH (20:02)
[2023-03-26 20:51] LABS: Glucose,Whole Blood 130 mg/dL (70-110)
--- NOTE | 2023-03-26 23:41 | PN ---
PROGRESS NOTE DATE OF SERVICE: 03/26/2023 SUBJECTIVE: This is a 67-year-old woman, who was admitted with acute right lower lobe pneumonia, also had history of liver transplantation. The patient was closely monitored. No chest pain. No palpitations. No fever. The most recent chest x-ray was reviewed. Dr. Brenner is following the patient. The patient is on empiric antibiotics. PAST MEDICAL HISTORY: Reviewed. REVIEW OF SYSTEMS: A 14-point review is negative except as mentioned earlier. CURRENT MEDICATIONS: Rocephin. Rest of medications noted. PHYSICAL EXAMINATION: VITAL SIGNS: Pulse is 88, blood pressure 104/69, respirations 16. HEENT: Conjunctivae normal. NECK: No JVD. CARDIOVASCULAR: S1, S2 muffled. RESPIRATIONS: Breath sounds diminished at the bases. A few scattered rhonchi and crackles. ABDOMEN: Soft. NERVOUS SYSTEM: Nonfocal. LABORATORY DATA: Reviewed. ASSESSMENT: 1. Acute right lower lobe pneumonia, possible sepsis and gram-negative infection present on admission. 2. History of liver transplant for nonalcoholic steatohepatitis. 3. Change in mental status, acute metabolic encephalopathy. 4. Possible aspiration. 5. Possible acute gastritis. 6. Chronic kidney disease, stage 3. 7. Hypertension. 8. Hyperlipidemia. 9. History of rheumatoid arthritis. 10.History of seizure disorder. 11.Multiple complex medical issues. RECOMMENDATIONS: Recommend to continue current medications. Continue symptomatic treatment. Continue with antibiotics. Follow the cultures. Otherwise, mycoplasma and Legionella testing. Repeat labs. Closely follow with multiple concerns including Pulmonary, Infectious Disease. Prognosis guarded. Further recommendations to follow. MMODL / IJN: [id number] /
[2023-03-27 05:53] LABS: Glucose,Whole Blood 107 mg/dL (70-110)
[2023-03-27] MEDS: CLOBAZAM 10 MG PO SCH ×2 (06:17→17:15)
[2023-03-27] MEDS: INSULN ASP PRT/INSULIN ASPART 100 UNIT/ML 10 ML VIAL SQ SCH ×2 (06:18→17:16)
[2023-03-27 08:21] LABS: Basophils # (A) 0.03 X 10*3/uL (0.00-0.10); Basophils % (A) 0.7 %; Eosinophils # (A) 0.34 X 10*3/uL (0.04-0.35); Eosinophils % (A) 8.3 %; HGB 11.1 d/dL (12.0-15.0); Lymphocytes # (A) 0.47 X 10*3/uL (0.90-5.00); Lymphocytes % (A) 11.5 %; MCH 26.2 pg (27.0-32.0); MCHC 30.8 d/dL (32.0-37.0); MCV 84.9 FL (80.0-97.0); Mean Platelet Volume 10.4 FL (9.5-12.2); Monocytes # (A) 0.63 X 10*3/uL (0.20-1.00); Monocytes % (A) 15.4 %; NRBC Per 100 WBC 0 X 10*3/uL (0.00-0.01); Neutrophils # (A) 2.59 X 10*3/uL (1.80-7.70); Neutrophils % (A) 63.6 %; Platelet Count 214 X 10*3/uL (140-440); RBC 4.24 X 10*6/uL (4.10-5.20); RDW 14.4 % (11.5-14.5); WBC 4.08 X 10*3/uL (4.50-10.00)
[2023-03-27] MEDS: SODIUM CHLORIDE 0.9% 1,000 ML IV SCH ×2 (08:40→13:34)
[2023-03-27 08:42] LABS: BUN/Creat Ratio 13.17 Ratio (12.00-20.00); Blood Urea Nitrogen 15.8 mg/dL (9.0-27.0); Calcium 9.4 mg/dL (8.7-10.3); Carbon Dioxide 19.1 mmol/L (21.6-31.8); Chloride 113 mmol/L (96-109); Glucose 109 mg/dL (70-110); Potassium 4.2 mmol/L (3.5-5.5); Sodium 142 mmol/L (135-145)
[2023-03-27] MEDS: IPRATROPIUM-ALBUTEROL 3 ML NEB INHALATION SCH ×4 (08:47→21:07)
[2023-03-27] MEDS: URSODIOL 250 MG PO SCH ×2 (10:10→20:10)
[2023-03-27] MEDS: LACOSAMIDE 50 MG TABLET PO SCH ×4 (10:11→20:02)
[2023-03-27] MEDS: NIFEdipine XL 90 MG TAB.ER.24 PO SCH (10:12)
[2023-03-27] MEDS: DAPAGLIFLOZIN PROPANEDIOL 10 MG TABLET PO SCH (10:12)
[2023-03-27] MEDS: HEPARIN SODIUM,PORCINE 5,000 UNIT/ML 1 ML VIAL SQ SCH ×2 (10:13→20:02)
[2023-03-27] MEDS: PANTOPRAZOLE 40 MG/10 ML VIAL IVP SCH ×2 (10:56→20:02)
[2023-03-27 11:28] LABS: Glucose,Whole Blood 97 mg/dL (70-110)
--- NOTE | 2023-03-27 11:33 | P.PN ---
Subjective Progress Note Date: 03/27/23 This is a pleasant 67-year-old female patient with a known history of diabetes mellitus, hyperlipidemia, hypertension, rheumatoid arthritis, seizure disorders, previous liver transplant for MCCLURE performed at [facility] in 2013 and remains on CellCept. This week she been having issues with sinus congestion and was placed on Bactrim by her PCP. Yesterday she started having nausea, vomiting and choking and gagging and was somewhat confused. Chest x-ray did reveal suspected right lower lobe pneumonia. Sputum culture pending. White count 5.5. Hemoglobin 13.0. Platelets 151. Sodium 134. Potassium 4.6. Bicarb 19. BUN 27. Creatinine 1.49. AST 33. ALT 26. Ammonia level less than 9. C-reactive protein 4.5. She's been initiated on ceftriaxone. She has multiple antibiotic ALLERGIES. She is seen today in consultation on the regular medical floor. She is currently sitting up in bed. Awake and alert in no acute distress. No further nausea or vomiting this morning. No fever or chills. He is maintaining good O2 saturations in the mid 90s on 2 L/m per nasal cannula. She's afebrile. Hemodynamically stable. The patient is seen today 03/26/2023 in follow-up on the regular medical floor. She is awake and alert in no acute distress. Resting fairly comfortably in bed. She is slightly better today compared to yesterday. She is maintaining good O2 saturations in the mid 90s on 2 L/m per nasal cannula. Afebrile. Hemodynamically stable. She is continued on ceftriaxone. Blood and sputum cultures pending. White count 4.1. Hemoglobin 12.1. Platelets 176. Sodium 1 36. Potassium 4.0. Bicarb 19. BUN 23. Creatinine 1.44. The patient is seen today 03/27/2023 in follow-up on the regular medical floor. She is resting comfortably in bed. Awake and alert in no acute distress. Still somewhat weak. Maintaining good O2 saturations in the 90s on room air. She is normal saline at 100 ML's per hour. She continues with some scattered rhonchi more so on the right lung. Continued on ceftriaxone. Blood culture reveals no growth. Sputum culture reveals no growth. White count 4.0. Hemoglobin 11.1. Platelets 214. Sodium 142. Potassium 4.2. Bicarb 19. BUN 16. Creatinine 1.2. Glucose 109. Objective - Vital Signs Vital signs: Vital Signs Temp 98.4 F 03/27/23 07:01 Pulse 84 03/27/23 09:00 Resp 16 03/27/23 07:01 BP 111/65 03/27/23 07:01 Pulse Ox 91 L 03/27/23 07:01 FiO2 Intake & Output 03/26/23 03/27/23 03/27/23 18:59 06:59 18:59 Other: Voiding Method Toilet Toilet # Voids 2 # Bowel Movements 1 - Exam GENERAL EXAM: Alert, weak 67-year-old female, on room air, comfortable in no apparent distress. HEAD: Normocephalic. EYES: Normal reaction of pupils, equal size. NOSE: Clear with pink turbinates. THROAT: No erythema or exudates. NECK: No masses, no JVD. CHEST: No chest wall deformity. LUNGS: Equal air entry with scattered rhonchi in the right lung base. CVS: S1 and S2 normal with no audible murmur, regular rhythm. ABDOMEN: No hepatosplenomegaly, normal bowel sounds, no guarding or rigidity. SPINE: No scoliosis or deformity SKIN: No rashes CENTRAL NERVOUS SYSTEM: No focal deficits, tone is normal in all 4 extremities. EXTREMITIES: There is no peripheral edema. No clubbing, no cyanosis. Peripheral pulses are intact. - Labs CBC & Chem 7: 03/27/23 06:06 03/27/23 06:06 Labs: Abnormal Lab Results - Last 24 Hours (Table) 03/26/23 03/26/23 03/27/23 Range/Units 16:08 20:49 06:06 WBC 4.08 L (4.50-10.00) X 10*3/uL Hgb 11.1 L (12.0-15.0) d/dL Hct 36.0 L (37.2-46.3) % MCH 26.2 L (27.0-32.0) pg MCHC 30.8 L (32.0-37.0) d/dL Lymphocytes # 0.47 L (0.90-5.00) X 10*3/uL Chloride (96-109) mmol/L Carbon Dioxide (21.6-31.8) mmol/L Est GFR (CKD-EPI) (>=60) POC Glucose (mg/dL) 117 H 130 H (70-110) mg/dL 03/27/23 Range/Units 06:06 WBC (4.50-10.00) X 10*3/uL Hgb (12.0-15.0) d/dL Hct (37.2-46.3) % MCH (27.0-32.0) pg MCHC (32.0-37.0) d/dL Lymphocytes # (0.90-5.00) X 10*3/uL Chloride 113 H (96-109) mmol/L Carbon Dioxide 19.1 L (21.6-31.8) mmol/L Est GFR (CKD-EPI) 50 L (>=60) POC Glucose (mg/dL) (70-110) mg/dL Microbiology - Last 24 Hours (Table) 03/24/23 18:22 Gram Stain - Final Sputum Sputum Culture - Final 03/24/23 13:30 Blood Culture - Preliminary Blood 03/24/23 13:15 Blood Culture - Preliminary Blood Assessment and Plan Assessment: Acute hypoxemic respiratory failure secondary to suspected aspiration pneumonia secondary to episodes of nausea, vomiting, choking Non-anion gap metabolic acidosis due to above Acute kidney injury secondary to dehydration Recent sinus infection being treated with Bactrim in the outpatient setting History of MCCLURE, requiring liver transplant in 2013 at [facility], currently on CellCept Seizure disorder Diabetes mellitus Hyperlipidemia Hypertension Rheumatoid arthritis Chronic kidney disease stage III Former smoker Plan: The patient was seen and evaluated Medications and labs reviewed Continue ceftriaxone Heparin for DVT prophylaxis Increase her activity as tolerated Follow-up chest x-ray in a.m. We'll continue to follow I have personally seen and examined the patient, performed the documentation and the assessment and plan as written. Number of minutes spent on the visit: 10.
[2023-03-27] MEDS ORDERED: guaiFENesin-DM 100-10MG/5ML 10 ML CUP PO PRN (13:24)
--- NOTE | 2023-03-27 13:26 | P.PN ---
Subjective This is a pleasant 67 years old female with multiple medical problems as below, was was admitted with respiratory symptoms and found to have right lower lobe pneumonia suspicious for aspiration pneumonia The patient was on ceftriaxone antibiotics were changed to cefepime currently She is mildly tachypneic but she still complaining from exertional dyspnea. She has cough occasionally but no chest pain She is also on normal saline 100 mL per hour, blood pressure low-normal lower her nifedipine 90 mg down to 60 mg with close monitoring Repeat chest x-ray in the morning Objective - Vital Signs Vital signs: Vital Signs Temp 98.4 F 03/27/23 07:01 Pulse 80 03/27/23 11:46 Resp 16 03/27/23 07:01 BP 111/65 03/27/23 07:01 Pulse Ox 91 L 03/27/23 07:01 FiO2 Intake & Output 03/26/23 03/27/23 03/27/23 18:59 06:59 18:59 Other: Voiding Method Toilet Toilet # Voids 2 # Bowel Movements 1 - Exam -GENERAL: The patient is alert and oriented x3, not in any acute distress. Obese HEENT: Pupils are round and equally reacting to light. EOMI. No scleral icterus. No conjunctival pallor. Normocephalic, atraumatic. No pharyngeal erythema. No thyromegaly. CARDIOVASCULAR: S1 and S2 present. No murmurs, rubs, or gallops. PULMONARY: Chest is clear to auscultation, no wheezing , no crackles. ABDOMEN: Soft, nontender, nondistended, normoactive bowel sounds. No palpable organomegaly. MUSCULOSKELETAL: No joint swelling or deformity. EXTREMITIES: No cyanosis, clubbing, or pedal edema. NEUROLOGICAL: Gross neurological examination did not reveal any focal deficits. SKIN: No rashes. no petechiae. - Labs CBC & Chem 7: 03/27/23 06:06 03/27/23 06:06 Labs: Abnormal Lab Results - Last 24 Hours (Table) 03/26/23 03/26/23 03/27/23 Range/Units 16:08 20:49 06:06 WBC 4.08 L (4.50-10.00) X 10*3/uL Hgb 11.1 L (12.0-15.0) d/dL Hct 36.0 L (37.2-46.3) % MCH 26.2 L (27.0-32.0) pg MCHC 30.8 L (32.0-37.0) d/dL Lymphocytes # 0.47 L (0.90-5.00) X 10*3/uL Chloride (96-109) mmol/L Carbon Dioxide (21.6-31.8) mmol/L Est GFR (CKD-EPI) (>=60) POC Glucose (mg/dL) 117 H 130 H (70-110) mg/dL 03/27/23 Range/Units 06:06 WBC (4.50-10.00) X 10*3/uL Hgb (12.0-15.0) d/dL Hct (37.2-46.3) % MCH (27.0-32.0) pg MCHC (32.0-37.0) d/dL Lymphocytes # (0.90-5.00) X 10*3/uL Chloride 113 H (96-109) mmol/L Carbon Dioxide 19.1 L (21.6-31.8) mmol/L Est GFR (CKD-EPI) 50 L (>=60) POC Glucose (mg/dL) (70-110) mg/dL Microbiology - Last 24 Hours (Table) 03/24/23 18:22 Gram Stain - Final Sputum Sputum Culture - Final 03/24/23 13:30 Blood Culture - Preliminary Blood 03/24/23 13:15 Blood Culture - Preliminary Blood Assessment and Plan Assessment: Right lower lobe pneumonia suspicious for aspiration Acute hypoxic respiratory failure Acute kidney injury on chronic kidney disease, improved Chronic kidney disease stage III History of mesh status post liver transplant in 2013 on cellcept History of seizure disorder Obesity with BMI of 32 Plan: Continue with cefepime Continue with normal saline Lower dose of nifedipine 60 mg daily [facility] team on the case Labs and medication were reviewed.. Continue same treatment. Continue with symptomatic treatment. Resume home medication. Monitor labs and vitals. DVT and GI prophylaxis. Further recommendations as per clinical course of the patient DVT prophylaxis: Subcutaneous heparin GI Prophylaxis: Ppi PT/OT: Pending Prognosis is guarded
[2023-03-27 16:32] LABS: Glucose,Whole Blood 102 mg/dL (70-110)
[2023-03-27] MEDS: MONTELUKAST 10 MG TAB PO SCH (17:15)
[2023-03-27] MEDS: ATORVASTATIN 10 MG TAB PO SCH (17:16)
[2023-03-27] MEDS: THIAMINE 100 MG TAB PO SCH (17:16)
[2023-03-27] MEDS: FAMOTIDINE 20 MG/2 ML VIAL IV SCH (20:02)
[2023-03-27] MEDS: LOSARTAN 50 MG TAB PO SCH (20:02)
[2023-03-27] MEDS: METOPROLOL SUCCINATE (ER) 25 MG TAB.ER.24H PO SCH (20:03)
[2023-03-27 20:37] LABS: Glucose,Whole Blood 99 mg/dL (70-110)
[2023-03-27] MEDS ORDERED: HEPARIN SODIUM,PORCINE 5,000 UNIT/ML 1 ML VIAL SQ SCH (21:00)
[2023-03-28] MEDS: SODIUM CHLORIDE 0.9% 1,000 ML IV SCH ×3 (00:33→17:59)
[2023-03-28] MEDS: INSULN ASP PRT/INSULIN ASPART 100 UNIT/ML 10 ML VIAL SQ SCH ×2 (06:12→17:55)
[2023-03-28] MEDS: CLOBAZAM 10 MG PO SCH ×2 (06:12→17:54)
[2023-03-28 06:15] LABS: Glucose,Whole Blood 94 mg/dL (70-110)
--- NOTE | 2023-03-28 08:18 | XR ---
EXAMINATION TYPE: XR chest 1V portable DATE OF EXAM: 03/28/2023 6:53 AM COMPARISON: Chest radiographs from 03/25/2023 TECHNIQUE: XR chest 1V portable Portable AP radiograph of the chest. CLINICAL INDICATION:Female, 67 years old with history of RLL infiltrate; FINDINGS: Lungs/Pleura: Similar right lower lung patchy airspace opacities. No pneumothorax or pleural effusion . Pulmonary vascularity: Unremarkable. Heart/mediastinum: Cardiomediastinal silhouette is enlarged and stable. Atherosclerotic calcificatio ns are seen in the aorta. Musculoskeletal: No acute osseous pathology. IMPRESSION: Similar right lower lung patchy airspace opacities concerning for pneumonia.
[2023-03-28] MEDS: IPRATROPIUM-ALBUTEROL 3 ML NEB INHALATION SCH ×4 (09:26→20:48)
[2023-03-28] MEDS: PANTOPRAZOLE 40 MG/10 ML VIAL IVP SCH ×2 (10:07→21:42)
[2023-03-28] MEDS: FAMOTIDINE 20 MG/2 ML VIAL IV SCH (10:07)
[2023-03-28] MEDS: LACOSAMIDE 50 MG TABLET PO SCH ×2 (10:08→10:20)
[2023-03-28] MEDS: HEPARIN SODIUM,PORCINE 5,000 UNIT/ML 1 ML VIAL SQ SCH ×2 (10:08→21:42)
[2023-03-28] MEDS: DAPAGLIFLOZIN PROPANEDIOL 10 MG TABLET PO SCH (10:08)
[2023-03-28] MEDS: URSODIOL 250 MG PO SCH ×2 (10:09→21:43)
[2023-03-28 10:30] LABS: BUN/Creat Ratio 7.82 Ratio (12.00-20.00); Blood Urea Nitrogen 8.6 mg/dL (9.0-27.0); Calcium 9.3 mg/dL (8.7-10.3); Carbon Dioxide 16.4 mmol/L (21.6-31.8); Chloride 117 mmol/L (96-109); Glucose 99 mg/dL (70-110); Potassium 4.2 mmol/L (3.5-5.5); Sodium 145 mmol/L (135-145)
[2023-03-28 11:36] LABS: Basophils # (A) 0.03 X 10*3/uL (0.00-0.10); Basophils % (A) 0.6 %; Crenated RBC 2+; Eosinophils # (A) 0.42 X 10*3/uL (0.04-0.35); Eosinophils % (A) 7.7 %; HCT 38.1 % (37.2-46.3); HGB 11.6 d/dL (12.0-15.0); Lymphocytes # (A) 0.59 X 10*3/uL (0.90-5.00); Lymphocytes % (A) 10.9 %; MCH 26.5 pg (27.0-32.0); MCHC 30.4 d/dL (32.0-37.0); MCV 87.2 FL (80.0-97.0); Mean Platelet Volume 11.1 FL (9.5-12.2); NRBC Per 100 WBC 0 X 10*3/uL (0.00-0.01); Neutrophils # (A) 3.75 X 10*3/uL (1.80-7.70); Neutrophils % (A) 69.1 %; Platelet Count 199 X 10*3/uL (140-440); RBC 4.37 X 10*6/uL (4.10-5.20); RDW 14.3 % (11.5-14.5); WBC 5.43 X 10*3/uL (4.50-10.00)
--- NOTE | 2023-03-28 11:59 | P.PN ---
Subjective Progress Note Date: 03/28/23 This is a pleasant 67-year-old female patient with a known history of diabetes mellitus, hyperlipidemia, hypertension, rheumatoid arthritis, seizure disorders, previous liver transplant for MCCLURE performed at [facility] in 2013 and remains on CellCept. This week she been having issues with sinus congestion and was placed on Bactrim by her PCP. Yesterday she started having nausea, vomiting and choking and gagging and was somewhat confused. Chest x-ray did reveal suspected right lower lobe pneumonia. Sputum culture pending. White count 5.5. Hemoglobin 13.0. Platelets 151. Sodium 134. Potassium 4.6. Bicarb 19. BUN 27. Creatinine 1.49. AST 33. ALT 26. Ammonia level less than 9. C-reactive protein 4.5. She's been initiated on ceftriaxone. She has multiple antibiotic ALLERGIES. She is seen today in consultation on the regular medical floor. She is currently sitting up in bed. Awake and alert in no acute distress. No further nausea or vomiting this morning. No fever or chills. He is maintaining good O2 saturations in the mid 90s on 2 L/m per nasal cannula. She's afebrile. Hemodynamically stable. The patient is seen today 03/26/2023 in follow-up on the regular medical floor. She is awake and alert in no acute distress. Resting fairly comfortably in bed. She is slightly better today compared to yesterday. She is maintaining good O2 saturations in the mid 90s on 2 L/m per nasal cannula. Afebrile. Hemodynamically stable. She is continued on ceftriaxone. Blood and sputum cultures pending. White count 4.1. Hemoglobin 12.1. Platelets 176. Sodium 1 36. Potassium 4.0. Bicarb 19. BUN 23. Creatinine 1.44. The patient is seen today 03/27/2023 in follow-up on the regular medical floor. She is resting comfortably in bed. Awake and alert in no acute distress. Still somewhat weak. Maintaining good O2 saturations in the 90s on room air. She is normal saline at 100 ML's per hour. She continues with some scattered rhonchi more so on the right lung. Continued on ceftriaxone. Blood culture reveals no growth. Sputum culture reveals no growth. White count 4.0. Hemoglobin 11.1. Platelets 214. Sodium 142. Potassium 4.2. Bicarb 19. BUN 16. Creatinine 1.2. Glucose 109. The patient is seen today 03/28/2023 in follow-up on the regular medical floor. She continues to rest comfortably in bed. Awake and alert in no acute distress. No further nausea or vomiting. She's been afebrile. Hemodynamically stable. Maintaining O2 saturations in the 90s on room air. Follow-up chest x-ray shows similar right lower lung airspace opacity. Urine legionella antigen was negative. White count 5.4. Hemoglobin 11.6. Platelets 199. Sodium 145. Potassium 4.2. Bicarb 16. BUN 9. Creatinine 1.1. Shee completed a course of ceftriaxone. Remains on normal saline at 100 ML's per hour. Heparin for DVT prophylaxis. Objective - Vital Signs Vital signs: Vital Signs Temp 98.7 F 03/28/23 07:05 Pulse 80 03/28/23 09:39 Resp 16 03/28/23 07:05 BP 130/77 03/28/23 07:05 Pulse Ox 94 L 03/28/23 09:26 FiO2 Intake & Output 03/27/23 03/28/23 03/28/23 18:59 06:59 18:59 Intake Total 1080 900 Balance 1080 900 Intake: Intake, IV Titration 900 Amount Sodium Chloride 0.9% 1, 800 000 ml @ 100 mls/hr IV . Q10H [facility]DI Rx#:[id number] cefTRIAXone 2 gm In 100 Sodium Chloride 0.9% 50 ml @ 100 mls/hr IVPB Q24HR MAGDI Rx#:[id number] Oral 1080 Other: Voiding Method Toilet # Voids 3 1 # Bowel Movements 1 - Exam GENERAL EXAM: Alert, pleasant 67-year-old female, on room air, comfortable in no apparent distress. HEAD: Normocephalic. EYES: Normal reaction of pupils, equal size. NOSE: Clear with pink turbinates. THROAT: No erythema or exudates. NECK: No masses, no JVD. CHEST: No chest wall deformity. LUNGS: Equal air entry with scattered rhonchi in the right lung base. CVS: S1 and S2 normal with no audible murmur, regular rhythm. ABDOMEN: No hepatosplenomegaly, normal bowel sounds, no guarding or rigidity. SPINE: No scoliosis or deformity SKIN: No rashes CENTRAL NERVOUS SYSTEM: No focal deficits, tone is normal in all 4 extremities. EXTREMITIES: There is no peripheral edema. No clubbing, no cyanosis. Milli pheral pulses are intact. - Labs CBC & Chem 7: 03/28/23 05:06 03/28/23 05:06 Labs: Abnormal Lab Results - Last 24 Hours (Table) 03/28/23 03/28/23 Range/Units 05:06 05:06 Hgb 11.6 L (12.0-15.0) d/dL MCH 26.5 L (27.0-32.0) pg MCHC 30.4 L (32.0-37.0) d/dL Lymphocytes # 0.59 L (0.90-5.00) X 10*3/uL Eosinophils # 0.42 H (0.04-0.35) X 10*3/uL Crenated Cell 2+ A Chloride 117 H (96-109) mmol/L Carbon Dioxide 16.4 L (21.6-31.8) mmol/L BUN 8.6 L (9.0-27.0) mg/dL Est GFR (CKD-EPI) 55 L (>=60) BUN/Creatinine Ratio 7.82 L (12.00-20.00) Ratio Microbiology - Last 24 Hours (Table) 03/24/23 13:30 Blood Culture - Preliminary Blood 03/24/23 13:15 Blood Culture - Preliminary Blood 03/24/23 18:22 Legionella Culture - Preliminary Sputum 03/24/23 18:22 Gram Stain - Final Sputum Sputum Culture - Final Assessment and Plan Assessment: Acute hypoxemic respiratory failure secondary to suspected aspiration pneumonia secondary to episodes of nausea, vomiting, choking. Recovered and on room air Non-anion gap metabolic acidosis due to above Acute kidney injury secondary to dehydration Recent sinus infection being treated with Bactrim in the outpatient setting History of MCCLURE, requiring liver transplant in 2013 at [facility], currently on CellCept Seizure disorder Diabetes mellitus Hyperlipidemia Hypertension Rheumatoid arthritis Chronic kidney disease stage III Former smoker Plan: The patient was seen and evaluated Chest x-ray, medications and labs reviewed Completed ceftriaxone Heparin for DVT prophylaxis Increase her activity as tolerated Possibly home in the a.m. We'll continue to follow I have personally seen and examined the patient, performed the documentation and the assessment and plan as written. Number of minutes spent on the visit: 10.
--- NOTE | 2023-03-28 14:05 | P.PN ---
Subjective This is a pleasant 67 years old female with multiple medical problems as below, was was admitted with respiratory symptoms and found to have right lower lobe pneumonia suspicious for aspiration pneumonia The patient was on ceftriaxone antibiotics were changed to cefepime currently She is mildly tachypneic but she still complaining from exertional dyspnea. She has cough occasionally but no chest pain She is also on normal saline 100 mL per hour, blood pressure low-normal lower her nifedipine 90 mg down to 60 mg with close monitoring Repeat chest x-ray in the morning 03/28/2023 Patient improving slowly and gradually, no significant dyspnea, she's compare for some exertional dyspnea No nausea vomiting or diarrhea or significant abdominal pain but she still has diarrhea, Culture are still pending Labs reviewed and it looks stable and creatinine improved down to 1.1. Glucose controlled. Repeat chest x-ray showing small right lower lobe opacity suspicious for pneumonia Patient remains on cefepime and normal saline at 200 mL per hour Possible discharge in 24-48 Objective - Vital Signs Vital signs: Vital Signs Temp 98.7 F 03/28/23 07:05 Pulse 80 03/28/23 12:42 Resp 16 03/28/23 07:05 BP 130/77 03/28/23 07:05 Pulse Ox 94 L 03/28/23 09:26 FiO2 Intake & Output 03/27/23 03/28/23 03/28/23 18:59 06:59 18:59 Intake Total 1080 900 Balance 1080 900 Intake: Intake, IV Titration 900 Amount Sodium Chloride 0.9% 1, 800 000 ml @ 100 mls/hr IV . Q10H [facility]DI Rx#:[id number] cefTRIAXone 2 gm In 100 Sodium Chloride 0.9% 50 ml @ 100 mls/hr IVPB Q24HR MAGDI Rx#:[id number] Oral 1080 Other: Voiding Method Toilet # Voids 3 1 # Bowel Movements 1 - Exam -GENERAL: The patient is alert and oriented x3, not in any acute distress. Obese HEENT: Pupils are round and equally reacting to light. EOMI. No scleral icterus. No conjunctival pallor. Normocephalic, atraumatic. No pharyngeal erythema. No thyromegaly. CARDIOVASCULAR: S1 and S2 present. No murmurs, rubs, or gallops. PULMONARY: Chest is clear to auscultation, no wheezing , no crackles. ABDOMEN: Soft, nontender, nondistended, normoactive bowel sounds. No palpable organomegaly. MUSCULOSKELETAL: No joint swelling or deformity. EXTREMITIES: No cyanosis, clubbing, or pedal edema. NEUROLOGICAL: Gross neurological examination did not reveal any focal deficits. SKIN: No rashes. no petechiae. - Labs CBC & Chem 7: 03/28/23 05:06 03/28/23 05:06 Labs: Abnormal Lab Results - Last 24 Hours (Table) 03/28/23 03/28/23 Range/Units 05:06 05:06 Hgb 11.6 L (12.0-15.0) d/dL MCH 26.5 L (27.0-32.0) pg MCHC 30.4 L (32.0-37.0) d/dL Lymphocytes # 0.59 L (0.90-5.00) X 10*3/uL Eosinophils # 0.42 H (0.04-0.35) X 10*3/uL Crenated Cell 2+ A Chloride 117 H (96-109) mmol/L Carbon Dioxide 16.4 L (21.6-31.8) mmol/L BUN 8.6 L (9.0-27.0) mg/dL Est GFR (CKD-EPI) 55 L (>=60) BUN/Creatinine Ratio 7.82 L (12.00-20.00) Ratio Microbiology - Last 24 Hours (Table) 03/24/23 13:30 Blood Culture - Preliminary Blood 03/24/23 13:15 Blood Culture - Preliminary Blood 03/24/23 18:22 Legionella Culture - Preliminary Sputum Assessment and Plan Assessment: Right lower lobe pneumonia suspicious for aspiration Acute hypoxic respiratory failure Acute kidney injury on chronic kidney disease, improved Chronic kidney disease stage III History of mesh status post liver transplant in 2013 on cellcept History of seizure disorder Obesity with BMI of 32 Plan: Continue with cefepime Continue with normal saline Lower dose of nifedipine 60 mg daily [facility] pulmonary team on the case Labs and medication were reviewed.. Continue same treatment. Continue with symptomatic treatment. Resume home medication. Monitor labs and vitals. DVT and GI prophylaxis. Further recommendations as per clinical course of the patient DVT prophylaxis: Subcutaneous heparin GI Prophylaxis: Ppi PT/OT: Pending Prognosis is guarded
--- NOTE | 2023-03-28 14:13 | CDI ---
Documentation Clarification Form Date: 03/28/2023 01:55:41 PM From: Trisha Mcclain RN CCDS Phone: [phone] Admit Date: 03/24/2023 12:54:00 PM Patient Name: Rosetta Currie Visit Number: [id number] Discharge Date: ATTENTION: The Clinical Documentation Specialists (CDI) and [facility] Coding Staff appreciate your assistance in clarifying documentation. Please respond to the clarification below the line at the bottom and electronically sign. The CDI & [facility] Coding staff will review the response and follow-up if needed. Please note: Queries are made part of the Legal Health Record. If you have any questions, please contact the author of this message via ITS. Dr. Eyal Pederson Sepsis is documented in the H&P, 03/24 through 03/26 Medicine notes. Based on this information and the findings below, is there an additional diagnosis that is clinically appropriate for this patient? History/Risk Factors: 67 year old female presents to ED with change in mental status, nausea and fatigue. Medical History: DM2, Liver transplant, HTN, HLD and Immunosuppressed. H&P, 03/24. Clinical Indicators: WBC : 03/24 9.6 Blood cultures: 03/24 No growth after 72 hours Sputum culture: Moderate gram positive Cocci, Few Gram Negative Bacilli 03/27 Sputum Legionella Culture: No Legionella isolated to date 03/27 Vitals signs: 03/24 B/P 127/66; HR 89; Temp 98.3 F Oral; RR 18; SpO2 96% room air ID consult, 03/24: Weakness ongoing for a week. New diagnosis of Sinus infection and treated with Bactrim. Patient symptoms of vomiting and elevated creatinine could be related to Bactrim DS. Treatment: ID Consult: See above Antibiotics: IV Bolus: 03/24 0.9NS IV 500cc bolus; 03/24 Ceftriaxone IVPB x 1; 03/25 Ceftriaxone IVPB Q24HR x 4 bags; Is there an additional diagnosis that is clinically appropriate for this patient? [ ] Sepsis, present on admission [ ] Sepsis ruled out [ ] SIRS, without underlying infectious process [ ] Other, please specify [ ] Unable to determine SIRS Criteria: 2 or more of the following may indicate SIRS Temperature < 96.8F (36C) or > 101.0F (38.3C) Heart Rate > 90 bpm Respiratory Rate > 20 breaths/min or PaCO2 < 32 mmHg White Blood Cell Count > 12,000 or < 4,000 cells/mm3 or > 10% bands (Template Last Reviewed: August 2022) no sepsis MTDD
[2023-03-28 17:07] LABS: Glucose,Whole Blood 98 mg/dL (70-110)
[2023-03-28] MEDS: THIAMINE 100 MG TAB PO SCH (17:54)
[2023-03-28] MEDS: MONTELUKAST 10 MG TAB PO SCH (17:54)
[2023-03-28] MEDS: ATORVASTATIN 10 MG TAB PO SCH (17:54)
[2023-03-28 20:56] LABS: Glucose,Whole Blood 88 mg/dL (70-110)
[2023-03-28] MEDS: METOPROLOL SUCCINATE (ER) 25 MG TAB.ER.24H PO SCH (21:43)
[2023-03-28] MEDS: LOSARTAN 50 MG TAB PO SCH (21:43)
[2023-03-28] MEDS: LACOSAMIDE 150 MG TABLET PO SCH (21:43)
[2023-03-29] MEDS: SODIUM CHLORIDE 0.9% 1,000 ML IV SCH ×2 (05:05→13:23)
[2023-03-29 05:11] LABS: Mycoplasma IgG Antibody (EIA) 0.73 INDEX (<=0.90); Mycoplasma IgM Antibody 0.08 INDEX (<=0.90)
[2023-03-29 06:23] LABS: Glucose,Whole Blood 99 mg/dL (70-110)
[2023-03-29] MEDS: INSULN ASP PRT/INSULIN ASPART 100 UNIT/ML 10 ML VIAL SQ SCH ×3 (06:37→16:15)
[2023-03-29] MEDS: CLOBAZAM 10 MG PO SCH ×2 (06:41→16:14)
[2023-03-29] MEDS: IPRATROPIUM-ALBUTEROL 3 ML NEB INHALATION SCH ×4 (07:32→19:22)
[2023-03-29] MEDS: PANTOPRAZOLE 40 MG/10 ML VIAL IVP SCH (08:09)
[2023-03-29] MEDS: LACOSAMIDE 150 MG TABLET PO SCH ×2 (08:10→20:50)
[2023-03-29] MEDS: DAPAGLIFLOZIN PROPANEDIOL 10 MG TABLET PO SCH (08:10)
[2023-03-29] MEDS: HEPARIN SODIUM,PORCINE 5,000 UNIT/ML 1 ML VIAL SQ SCH ×2 (08:11→20:51)
[2023-03-29] MEDS: FAMOTIDINE 20 MG/2 ML VIAL IV SCH (08:11)
[2023-03-29] MEDS: URSODIOL 250 MG PO SCH ×2 (08:12→20:51)
--- NOTE | 2023-03-29 10:48 | P.PN ---
Subjective Progress Note Date: 03/27/23 Principal diagnosis: Pneumonia Patient is a 67-year-old female with a past medical history significant for diabetes mellitus type 2 hypertension hyperlipidemia COPD seizu re disorder rheumatoid arthritis has not been feeling well for more than a week and treated in outpatient setting with Bactrim for possible sinusitis presented to hospital with nausea and vomiting and evidence of right lower lobe pneumonia. On today's evaluation that is 03/27/2023, the patient continues to be afebrile the patient is breathing comfortably on 2 L cannula oxygen, the patient denies h aving any chest pain patient cough has decreased in intensity, the patient denies any further nausea no vomiting abdominal pain and no diarrhea. Patient did have a hemoglobin of 11.1, white count 4.08 creatinine is 1.2 pro calcitonin 0.46, blood and sputum cultures currently pending, urine for Legio rachele antigen negative Objective - Vital Signs Vital signs: Vital Signs Temp 98.4 F 03/27/23 07:01 Pulse 80 03/27/23 11:46 Resp 16 03/27/23 07:01 BP 111/65 03/27/23 07:01 Pulse Ox 91 L 03/27/23 07:01 FiO2 Intake & Output 03/26/23 03/27/23 03/27/23 18:59 06:59 18:59 Other: Voiding Method Toilet Toilet # Voids 2 # Bowel Movements 1 - Exam GENERAL DESCRIPTION: An elderly female lying in bed in no distress RESPIRATORY SYSTEM: Unlabored breathing , decreased breath sounds at bases HEART: S1 S2 regular rate and rhythm , ABDOMEN: Soft , no tenderness EXTREMITIES: No edema feet - Labs CBC & Chem 7: 03/28/23 05:06 03/28/23 05:06 Labs: Abnormal Lab Results - Last 24 Hours (Table) 03/26/23 03/26/23 03/27/23 Range/Units 16:08 20:49 06:06 WBC 4.08 L (4.50-10.00) X 10*3/uL Hgb 11.1 L (12.0-15.0) d/dL Hct 36.0 L (37.2-46.3) % MCH 26.2 L (27.0-32.0) pg MCHC 30.8 L (32.0-37.0) d/dL Lymphocytes # 0.47 L (0.90-5.00) X 10*3/uL Chloride (96-109) mmol/L Carbon Dioxide (21.6-31.8) mmol/L Est GFR (CKD-EPI) (>=60) POC Glucose (mg/dL) 117 H 130 H (70-110) mg/dL 03/27/23 Range/Units 06:06 WBC (4.50-10.00) X 10*3/uL Hgb (12.0-15.0) d/dL Hct (37.2-46.3) % MCH (27.0-32.0) pg MCHC (32.0-37.0) d/dL Lymphocytes # (0.90-5.00) X 10*3/uL Chloride 113 H (96-109) mmol/L Carbon Dioxide 19.1 L (21.6-31.8) mmol/L Est GFR (CKD-EPI) 50 L (>=60) POC Glucose (mg/dL) (70-110) mg/dL Microbiology - Last 24 Hours (Table) 03/24/23 18:22 Gram Stain - Final Sputum Sputum Culture - Final 03/24/23 13:30 Blood Culture - Preliminary Blood 03/24/23 13:15 Blood Culture - Preliminary Blood Assessment and Plan (1) Pneumonia Current Visit: Yes Status: Acute Code(s): J18.9 - PNEUMONIA, UNSPECIFIED ORGANISM SNOMED Code(s): 762480208 Plan: 1patient presented hospital with weakness not feeling well symptom has been going on for more than a week and has been recent diagnosed with sinus infection and treated with the Bactrim no evidence of right lower lobe pneumonia likely community-acquired 2--patient with multiple antibiotic allergies that would limit the number of antibiotics safe to use 3patient did have elevated procalcitonin, blood and sputum cultures are currently pending 4patient has shown some clinical improvement and will continue with Rocephin 2 g daily while waiting for the culture to finalize and monitor clinical course closely Dictation was produced using [employer] dictation software. please excuse any grammatical, word or spelling errors. Time with Patient: Less than 30
--- NOTE | 2023-03-29 10:51 | P.PN ---
Subjective Progress Note Date: 03/28/23 Principal diagnosis: Pneumonia Patient is a 67-year-old female with a past medical history significant for diabetes mellitus type 2 hypertension hyperlipidemia COPD seizu re disorder rheumatoid arthritis has not been feeling well for more than a week and treated in outpatient setting with Bactrim for possible sinusitis presented to hospital with nausea and vomiting and evidence of right lower lobe pneumonia. On today's evaluation that is 03/28/2023, the patient remains to be afebrile the patient is breathing comfortably on 2 L cannula oxygen, the patient denies hav ing any chest pain patient cough has decreased in intensity with occasional sputum production, the patient denies nausea no vomiting abdominal pain however has been complaining of diarrhea but no bloody mucus in the stool. Patient did have a hemoglobin of 11.6, white count 5.43 creatinine is 1.1 pro calcitonin 0.46, blood and sputum cultures currently pending, urine for Legionella antigen negative Objective - Vital Signs Vital signs: Vital Signs Temp 98.7 F 03/28/23 07:05 Pulse 80 03/28/23 12:42 Resp 16 03/28/23 07:05 BP 130/77 03/28/23 07:05 Pulse Ox 94 L 03/28/23 09:26 FiO2 Intake & Output 03/27/23 03/28/23 03/28/23 18:59 06:59 18:59 Intake Total 1080 900 Balance 1080 900 Intake: Intake, IV Titration 900 Amount Sodium Chloride 0.9% 1, 800 000 ml @ 100 mls/hr IV . Q10H [facility]DI Rx#:[id number] cefTRIAXone 2 gm In 100 Sodium Chloride 0.9% 50 ml @ 100 mls/hr IVPB Q24HR [facility]DI Rx#:[id number] Oral 1080 Other: Voiding Method Toilet # Voids 3 1 # Bowel Movements 1 - Exam GENERAL DESCRIPTION: An elderly female lying in bed in no distress RESPIRATORY SYSTEM: Unlabored breathing , decreased breath sounds at bases HEART: S1 S2 regular rate and rhythm , ABDOMEN: Soft , no tenderness EXTREMITIES: No edema feet - Labs CBC & Chem 7: 03/28/23 05:06 03/28/23 05:06 Labs: Abnormal Lab Results - Last 24 Hours (Table) 03/28/23 03/28/23 Range/Units 05:06 05:06 Hgb 11.6 L (12.0-15.0) d/dL MCH 26.5 L (27.0-32.0) pg MCHC 30.4 L (32.0-37.0) d/dL Lymphocytes # 0.59 L (0.90-5.00) X 10*3/uL Eosinophils # 0.42 H (0.04-0.35) X 10*3/uL Crenated Cell 2+ A Chloride 117 H (96-109) mmol/L Carbon Dioxide 16.4 L (21.6-31.8) mmol/L BUN 8.6 L (9.0-27.0) mg/dL Est GFR (CKD-EPI) 55 L (>=60) BUN/Creatinine Ratio 7.82 L (12.00-20.00) Ratio Microbiology - Last 24 Hours (Table) 03/24/23 13:30 Blood Culture - Preliminary Blood 03/24/23 13:15 Blood Culture - Preliminary Blood 03/24/23 18:22 Legionella Culture - Preliminary Sputum Assessment and Plan (1) Pneumonia Current Visit: Yes Status: Acute Code(s): J18.9 - PNEUMONIA, UNSPECIFIED ORGANISM SNOMED Code(s): 596689366 Plan: 1patient presented hospital with weakness not feeling well symptom has been going on for more than a week and has been recent diagnosed with sinus infection and treated with the Bactrim no evidence of right lower lobe pneumonia likely community-acquired 2--patient with multiple antibiotic allergies that would limit the number of antibiotics safe to use 3patient did have elevated procalcitonin, blood and sputum cultures are cu rrently pending 4patient has shown clinical improvement and will continue with Rocephin 2 g daily while waiting for the culture to finalize , pt advised to increase yougart if any worsening diarrhea will sent a stool for c diff Dictation was produced using [employer] dictation software. please excuse any grammatical, word or spelling errors. Time with Patient: Less than 30
--- NOTE | 2023-03-29 11:09 | P.PN ---
Subjective Progress Note Date: 03/29/23 This is a pleasant 67-year-old female patient with a known history of diabetes mellitus, hyperlipidemia, hypertension, rheumatoid arthritis, seizure disorders, previous liver transplant for MCCLURE performed at [facility] in 2013 and remains on CellCept. This week she been having issues with sinus congestion and was placed on Bactrim by her PCP. Yesterday she started having nausea, vomiting and choking and gagging and was somewhat confused. Chest x-ray did reveal suspected right lower lobe pneumonia. Sputum culture pending. White count 5.5. Hemoglobin 13.0. Platelets 151. Sodium 134. Potassium 4.6. Bicarb 19. BUN 27. Creatinine 1.49. AST 33. ALT 26. Ammonia level less than 9. C-reactive protein 4.5. She's been initiated on ceftriaxone. She has multiple antibiotic ALLERGIES. She is seen today in consultation on the regular medical floor. She is currently sitting up in bed. Awake and alert in no acute distress. No further nausea or vomiting this morning. No fever or chills. He is maintaining good O2 saturations in the mid 90s on 2 L/m per nasal cannula. She's afebrile. Hemodynamically stable. The patient is seen today 03/26/2023 in follow-up on the regular medical floor. She is awake and alert in no acute distress. Resting fairly comfortably in bed. She is slightly better today compared to yesterday. She is maintaining good O2 saturations in the mid 90s on 2 L/m per nasal cannula. Afebrile. Hemodynamically stable. She is continued on ceftriaxone. Blood and sputum cultures pending. White count 4.1. Hemoglobin 12.1. Platelets 176. Sodium 1 36. Potassium 4.0. Bicarb 19. BUN 23. Creatinine 1.44. The patient is seen today 03/27/2023 in follow-up on the regular medical floor. She is resting comfortably in bed. Awake and alert in no acute distress. Still somewhat weak. Maintaining good O2 saturations in the 90s on room air. She is normal saline at 100 ML's per hour. She continues with some scattered rhonchi more so on the right lung. Continued on ceftriaxone. Blood culture reveals no growth. Sputum culture reveals no growth. White count 4.0. Hemoglobin 11.1. Platelets 214. Sodium 142. Potassium 4.2. Bicarb 19. BUN 16. Creatinine 1.2. Glucose 109. The patient is seen today 03/28/2023 in follow-up on the regular medical floor. She continues to rest comfortably in bed. Awake and alert in no acute distress. No further nausea or vomiting. She's been afebrile. Hemodynamically stable. Maintaining O2 saturations in the 90s on room air. Follow-up chest x-ray shows similar right lower lung airspace opacity. Urine legionella antigen was negative. White count 5.4. Hemoglobin 11.6. Platelets 199. Sodium 145. Potassium 4.2. Bicarb 16. BUN 9. Creatinine 1.1. Shee completed a course of ceftriaxone. Remains on normal saline at 100 ML's per hour. Heparin for DVT prophylaxis. The patient is seen today 03/29/2023 in follow-up on the regular medical floor. She is sitting up in bed. Awake and alert in no acute distress. Feeling back to her baseline. No worsening shortness of breath, cough or congestion. No further nausea or vomiting. Less diarrhea. She has normal saline at 100 ML's per hour. Her C. difficile screen was negative. Currently on Omnicef. Heparin for DVT prophylaxis. Objective - Vital Signs Vital signs: Vital Signs Temp 98.5 F 03/29/23 07:18 Pulse 92 03/29/23 07:44 Resp 20 03/29/23 07:18 BP 148/67 03/29/23 07:18 Pulse Ox 90 L 03/29/23 07:18 FiO2 Intake & Output 03/28/23 03/29/23 03/29/23 18:59 06:59 18:59 Intake Total 900 1490 Balance 900 1490 Intake: Intake, IV Titration 900 1250 Amount Sodium Chloride 0.9% 1, 800 1200 000 ml @ 100 mls/hr IV . Q10H [facility] Rx#:[id number] cefTRIAXone 2 gm In 100 50 Sodium Chloride 0.9% 50 ml @ 100 mls/hr IVPB Q24HR [facility] Rx#:[id number] Oral 240 Other: # Voids 6 1 # Bowel Movements 6 1 - Exam GENERAL EXAM: Alert, 67-year-old female, sitting up in bed, on room air, comfortable in no apparent distress. HEAD: Normocephalic. EYES: Normal reaction of pupils, equal size. NOSE: Clear with pink turbinates. THROAT: No erythema or exudates. NECK: No masses, no JVD. CHEST: No chest wall deformity. LUNGS: Equal air entry with scattered rhonchi in the right lung base. CVS: S1 and S2 normal with no audible murmur, regular rhythm. ABDOMEN: No hepatosplenomegaly, normal bowel sounds, no guarding or rigidity. SPINE: No scoliosis or deformity SKIN: No rashes CENTRAL NERVOUS SYSTEM: No focal deficits, tone is normal in all 4 extremities. EXTREMITIES: There is no peripheral edema. No clubbing, no cyanosis. Peripheral pulses are intact. - Labs CBC & Chem 7: 03/28/23 05:06 03/28/23 05:06 Labs: Abnormal Lab Results - Last 24 Hours (Table) 03/28/23 Range/Units 05:06 Hgb 11.6 L (12.0-15.0) d/dL MCH 26.5 L (27.0-32.0) pg MCHC 30.4 L (32.0-37.0) d/dL Lymphocytes # 0.59 L (0.90-5.00) X 10*3/uL Eosinophils # 0.42 H (0.04-0.35) X 10*3/uL Crenated Cell 2+ A Assessment and Plan Assessment: Acute hypoxemic respiratory failure secondary to suspected aspiration pneumonia secondary to episodes of nausea, vomiting, choking. Recovered and on room air Non-anion gap metabolic acidosis due to above Acute kidney injury secondary to dehydration Recent sinus infection being treated with Bactrim in the outpatient setting History of MCCLURE, requiring liver transplant in 2013 at [facility], currently on CellCept Seizure disorder Diabetes mellitus Hyperlipidemia Hypertension Rheumatoid arthritis Chronic kidney disease stage III Former smoker Plan: The patient was seen and evaluated Medications reviewed Currently on Omnicef Cleared for discharge from the pulmonary standpoint Follow-up in our office in one week I have personally seen and examined the patient, performed the documentation and the assessment and plan as written. Number of minutes spent on the visit: 10.
[2023-03-29 11:25] LABS: Glucose,Whole Blood 83 mg/dL (70-110)
[2023-03-29] MEDS: CEFDINIR 300 MG CAP PO SCH ×2 (13:23→20:50)
[2023-03-29 15:03] LABS: HCT 35.3 % (34.0-46.0); HGB 11.7 gm/dL (11.4-16.0); Hypochromasia Slight; MCH 27.5 pg (25.0-35.0); MCHC 33.1 g/dL (31.0-37.0); Mean Platelet Volume 7.6; Platelet Count 225 k/uL (150-450); Poikilocytosis Slight; RBC 4.25 m/uL (3.80-5.40); RDW 14.6 % (11.5-15.5); WBC 6.1 k/uL (3.8-10.6)
[2023-03-29] MEDS: THIAMINE 100 MG TAB PO SCH (16:14)
[2023-03-29] MEDS: MONTELUKAST 10 MG TAB PO SCH (16:14)
[2023-03-29 17:13] LABS: Glucose,Whole Blood 115 mg/dL (70-110)
--- NOTE | 2023-03-29 20:27 | P.PN ---
Subjective This is a pleasant 67 years old female with multiple medical problems as below, was was admitted with respiratory symptoms and found to have right lower lobe pneumonia suspicious for aspiration pneumonia The patient was on ceftriaxone antibiotics were changed to cefepime currently She is mildly tachypneic but she still complaining from exertional dyspnea. She has cough occasionally but no chest pain She is also on normal saline 100 mL per hour, blood pressure low-normal lower her nifedipine 90 mg down to 60 mg with close monitoring Repeat chest x-ray in the morning 03/28/2023 Patient improving slowly and gradually, no significant dyspnea, she's compare for some exertional dyspnea No nausea vomiting or diarrhea or significant abdominal pain but she still has diarrhea, Culture are still pending Labs reviewed and it looks stable and creatinine improved down to 1.1. Glucose controlled. Repeat chest x-ray showing small right lower lobe opacity suspicious for pneumonia Patient remains on cefepime and normal saline at 200 mL per hour Possible discharge in 24-48 12/27/2022 Patient is doing well today and breathing is improved significantly at or close to baseline. However she still have some cough. Her dyspnea is better no chest pain. Patient antibiotic was adjusted into cefdinir, and patient may be considered for discharge per pulmonary and ID service However patient reports some blood in her stool today when I asked the patient she states that her bowel movement was dark brown but not black but she thinks she saw some blood in it, therefore reported to keep the patient for another 24 hours, we repeated CBC showing normal hemoglobin at 11.7. We have ordered for occult blood in his stool which is pending We will repeat hemoglobin tomorrow if it remains stable and vitals stable she might be considered for discharge and follow-up as an outpatient. Objective - Vital Signs Vital signs: Vital Signs Temp 98.9 F 03/29/23 14:08 Pulse 99 03/29/23 19:32 Resp 20 03/29/23 14:08 BP 147/67 03/29/23 14:08 Pulse Ox 91 L 03/29/23 14:08 FiO2 Intake & Output 03/29/23 03/29/23 03/30/23 06:59 18:59 06:59 Intake Total 1490 800 Balance 1490 800 Intake: Intake, IV Titration 1250 800 Amount Sodium Chloride 0.9% 1, 1200 800 000 ml @ 100 mls/hr IV . Q10H [facility] Rx#:[id number] cefTRIAXone 2 gm In 50 Sodium Chloride 0.9% 50 ml @ 100 mls/hr IVPB Q24HR [facility] Rx#:[id number] Oral 240 Other: # Voids 1 # Bowel Movements 1 - Exam -GENERAL: The patient is alert and oriented x3, not in any acute distress. Obese HEENT: Pupils are round and equally reacting to light. EOMI. No scleral icterus. No conjunctival pallor. Normocephalic, atraumatic. No pharyngeal erythema. No thyromegaly. CARDIOVASCULAR: S1 and S2 present. No murmurs, rubs, or gallops. PULMONARY: Chest is clear to auscultation, no wheezing , no crackles. ABDOMEN: Soft, nontender, nondistended, normoactive bowel sounds. No palpable organomegaly. MUSCULOSKELETAL: No joint swelling or deformity. EXTREMITIES: No cyanosis, clubbing, or pedal edema. NEUROLOGICAL: Gross neurological examination did not reveal any focal deficits. SKIN: No rashes. no petechiae. - Labs CBC & Chem 7: 03/29/23 14:33 03/28/23 05:06 Labs: Abnormal Lab Results - Last 24 Hours (Table) 03/29/23 Range/Units 17:12 POC Glucose (mg/dL) 115 H (70-110) mg/dL Assessment and Plan Assessment: Right lower lobe pneumonia suspicious for aspiration Acute hypoxic respiratory failure Acute kidney injury on chronic kidney disease, improved Chronic kidney disease stage III History of mesh status post liver transplant in 2013 on cellcept History of seizure disorder Obesity with BMI of 32 Plan: Continue with cedinir DC normal saline increase dose of nifedipine 90 mg daily [facility] pulmonary team on the case Labs and medication were reviewed.. Continue same treatment. Continue with symptomatic treatment. Resume home medication. Monitor labs and vitals. DVT and GI prophylaxis. Further recommendations as per clinical course of the patient DVT prophylaxis: Subcutaneous heparin GI Prophylaxis: Ppi PT/OT: home family Prognosis is guarded Possible discharge in the morning if she remains stable
[2023-03-29 20:48] VITALS: RESP 18
[2023-03-29] MEDS: METOPROLOL SUCCINATE (ER) 25 MG TAB.ER.24H PO SCH (20:50)
[2023-03-29] MEDS: PANTOPRAZOLE 40 MG TABLET PO SCH (20:50)
[2023-03-29] MEDS: LOSARTAN 50 MG TAB PO SCH (20:50)
[2023-03-29 21:24] LABS: Glucose,Whole Blood 115 mg/dL (70-110)
[2023-03-30 06:15] LABS: Glucose,Whole Blood 106 mg/dL (70-110)
[2023-03-30] MEDS: CLOBAZAM 10 MG PO SCH (06:31)
[2023-03-30 07:37] VITALS: BP 148/74; TEMP 98.3
[2023-03-30] MEDS: FAMOTIDINE 20 MG/2 ML VIAL IV SCH (07:38)
[2023-03-30] MEDS: INSULN ASP PRT/INSULIN ASPART 100 UNIT/ML 10 ML VIAL SQ SCH (07:46)
[2023-03-30] MEDS: LACOSAMIDE 150 MG TABLET PO SCH (07:47)
[2023-03-30] MEDS: HEPARIN SODIUM,PORCINE 5,000 UNIT/ML 1 ML VIAL SQ SCH (07:48)
[2023-03-30] MEDS: PANTOPRAZOLE 40 MG TABLET PO SCH (07:48)
[2023-03-30] MEDS: CEFDINIR 300 MG CAP PO SCH (07:51)
[2023-03-30] MEDS: DAPAGLIFLOZIN PROPANEDIOL 10 MG TABLET PO SCH (08:00)
[2023-03-30] MEDS: IPRATROPIUM-ALBUTEROL 3 ML NEB INHALATION SCH ×2 (08:13→11:29)
[2023-03-30] MEDS: URSODIOL 250 MG PO SCH (08:23)
[2023-03-30] MEDS ORDERED: NIFEdipine XL 90 MG TAB.ER.24 PO SCH (09:00)
[2023-03-30 11:15] LABS: Basophils # (A) 0.03 X 10*3/uL (0.00-0.10); Basophils % (A) 0.5 %; Eosinophils # (A) 0.44 X 10*3/uL (0.04-0.35); Eosinophils % (A) 6.9 %; HCT 37.6 % (37.2-46.3); HGB 11.9 d/dL (12.0-15.0); Lymphocytes # (A) 0.53 X 10*3/uL (0.90-5.00); Lymphocytes % (A) 8.3 %; MCH 26.8 pg (27.0-32.0); MCHC 31.6 d/dL (32.0-37.0); MCV 84.7 FL (80.0-97.0); Mean Platelet Volume 10.4 FL (9.5-12.2); Monocytes # (A) 0.66 X 10*3/uL (0.20-1.00); Monocytes % (A) 10.3 %; NRBC Per 100 WBC 0 X 10*3/uL (0.00-0.01); Neutrophils # (A) 4.66 X 10*3/uL (1.80-7.70); Neutrophils % (A) 72.9 %; Platelet Count 291 X 10*3/uL (140-440); RBC 4.44 X 10*6/uL (4.10-5.20); RDW 14.4 % (11.5-14.5); WBC 6.39 X 10*3/uL (4.50-10.00)
[2023-03-30 11:44] VITALS: PULSE 105
--- NOTE | 2023-03-30 11:44 | P.PN ---
Subjective Progress Note Date: 03/30/23 This is a pleasant 67-year-old female patient with a known history of diabetes mellitus, hyperlipidemia, hypertension, rheumatoid arthritis, seizure disorders, previous liver transplant for MCCLURE performed at [facility] in 2013 and remains on CellCept. This week she been having issues with sinus congestion and was placed on Bactrim by her PCP. Yesterday she started having nausea, vomiting and choking and gagging and was somewhat confused. Chest x-ray did reveal suspected right lower lobe pneumonia. Sputum culture pending. White count 5.5. Hemoglobin 13.0. Platelets 151. Sodium 134. Potassium 4.6. Bicarb 19. BUN 27. Creatinine 1.49. AST 33. ALT 26. Ammonia level less than 9. C-reactive protein 4.5. She's been initiated on ceftriaxone. She has multiple antibiotic ALLERGIES. She is seen today in consultation on the regular medical floor. She is currently sitting up in bed. Awake and alert in no acute distress. No further nausea or vomiting this morning. No fever or chills. He is maintaining good O2 saturations in the mid 90s on 2 L/m per nasal cannula. She's afebrile. Hemodynamically stable. The patient is seen today 03/26/2023 in follow-up on the regular medical floor. She is awake and alert in no acute distress. Resting fairly comfortably in bed. She is slightly better today compared to yesterday. She is maintaining good O2 saturations in the mid 90s on 2 L/m per nasal cannula. Afebrile. Hemodynamically stable. She is continued on ceftriaxone. Blood and sputum cultures pending. White count 4.1. Hemoglobin 12.1. Platelets 176. Sodium 1 36. Potassium 4.0. Bicarb 19. BUN 23. Creatinine 1.44. The patient is seen today 03/27/2023 in follow-up on the regular medical floor. She is resting comfortably in bed. Awake and alert in no acute distress. Still somewhat weak. Maintaining good O2 saturations in the 90s on room air. She is normal saline at 100 ML's per hour. She continues with some scattered rhonchi more so on the right lung. Continued on ceftriaxone. Blood culture reveals no growth. Sputum culture reveals no growth. White count 4.0. Hemoglobin 11.1. Platelets 214. Sodium 142. Potassium 4.2. Bicarb 19. BUN 16. Creatinine 1.2. Glucose 109. The patient is seen today 03/28/2023 in follow-up on the regular medical floor. She continues to rest comfortably in bed. Awake and alert in no acute distress. No further nausea or vomiting. She's been afebrile. Hemodynamically stable. Maintaining O2 saturations in the 90s on room air. Follow-up chest x-ray shows similar right lower lung airspace opacity. Urine legionella antigen was negative. White count 5.4. Hemoglobin 11.6. Platelets 199. Sodium 145. Potassium 4.2. Bicarb 16. BUN 9. Creatinine 1.1. Shee completed a course of ceftriaxone. Remains on normal saline at 100 ML's per hour. Heparin for DVT prophylaxis. The patient is seen today 03/29/2023 in follow-up on the regular medical floor. She is sitting up in bed. Awake and alert in no acute distress. Feeling back to her baseline. No worsening shortness of breath, cough or congestion. No further nausea or vomiting. Less diarrhea. She has normal saline at 100 ML's per hour. Her C. difficile screen was negative. Currently on Omnicef. Heparin for DVT prophylaxis. The patient is seen today 03/30/2023 in follow-up on the regular medical floor. She is awake and alert in no acute distress. Resting comfortably in bed. No worsening shortness of breath, cough or congestion. No nausea or vomiting. Maintaining good O2 saturations in the 90s on 2 L/m per nasal cannula. Blood culture reveals no growth. Sputum culture no growth. White count 6.3. Hemoglobin 11.9. Platelet count 291. Glucose 106. She is continued on Omnicef, bronchodilators. Objective - Vital Signs Vital signs: Vital Signs Temp 98.3 F 03/30/23 07:08 Pulse 96 03/30/23 11:39 Resp 18 03/30/23 07:08 BP 148/74 03/30/23 07:08 Pulse Ox 90 L 03/30/23 08:14 FiO2 Intake & Output 03/29/23 03/30/23 03/30/23 18:59 06:59 18:59 Intake Total 800 240 Balance 800 240 Intake: Intake, IV Titration 800 Amount Sodium Chloride 0.9% 1, 800 000 ml @ 100 mls/hr IV . Q10H [facility] Rx#:[id number] Oral 240 Other: # Voids 2 1 - Exam GENERAL EXAM: Alert, 67-year-old female, standing in bed, on 2 L/m per nasal can nula, comfortable in no apparent distress. HEAD: Normocephalic. EYES: Normal reaction of pupils, equal size. NOSE: Clear with pink turbinates. THROAT: No erythema or exudates. NECK: No masses, no JVD. CHEST: No chest wall deformity. LUNGS: Equal air entry with scattered rhonchi in the right lung base. CVS: S1 and S2 normal with no audible murmur, regular rhythm. ABDOMEN: No hepatosplenomegaly, normal bowel sounds, no guarding or rigidity. SPINE: No scoliosis or deformity SKIN: No rashes CENTRAL NERVOUS SYSTEM: No focal deficits, tone is normal in all 4 extremities. EXTREMITIES: There is no peripheral edema. No clubbing, no cyanosis. Peripheral pulses are intact. - Labs CBC & Chem 7: 03/30/23 07:20 03/28/23 05:06 Labs: Abnormal Lab Results - Last 24 Hours (Table) 03/29/23 03/29/23 03/30/23 Range/Units 17:12 21:23 07:20 Hgb 11.9 L (12.0-15.0) d/dL MCH 26.8 L (27.0-32.0) pg MCHC 31.6 L (32.0-37.0) d/dL Lymphocytes # 0.53 L (0.90-5.00) X 10*3/uL Eosinophils # 0.44 H (0.04-0.35) X 10*3/uL POC Glucose (mg/dL) 115 H 115 H (70-110) mg/dL Microbiology - Last 24 Hours (Table) 03/24/23 13:30 Blood Culture - Final Blood 03/24/23 13:15 Blood Culture - Final Blood Assessment and Plan Assessment: Acute hypoxemic respiratory failure secondary to suspected aspiration pneumonia secondary to episodes of nausea, vomiting, choking. Recovered and on room air Non-anion gap metabolic acidosis due to above Acute kidney injury secondary to dehydration Recent sinus infection being treated with Bactrim in the outpatient setting History of MCCLURE, requiring liver transplant in 2013 at [facility], currently on CellCept Seizure disorder Diabetes mellitus Hyperlipidemia Hypertension Rheumatoid arthritis Chronic kidney disease stage III Former smoker Plan: The patient was seen and evaluated Medications and labs reviewed Currently on Omnicef Evaluate for possible home oxygen Cleared for discharge from the pulmonary standpoint Follow-up in our office in one week I have personally seen and examined the patient, performed the documentation and the assessment and plan as written. Number of minutes spent on the visit: 10.
[2023-03-30 11:51] LABS: Glucose,Whole Blood 102 mg/dL (70-110)
[2023-03-30 13:23] VITALS: BMI 32.3
--- NOTE | 2023-03-30 21:54 | P.DS ---
Providers Date of admission: 03/24/23 12:54 Attending physician: Eyal Pederson MD Consults: 03/24/23 13:00 Consult Physician Urgent Consulting Provider: Harry Lopez Consult Reason/Comments: pneumonia, multiple antibiotic allergies Do you want consulting provider notified?: Yes 03/24/23 17:38 Consult Physician Routine Consulting Provider: Sonia Brenner Consult Reason/Comments: pneumonia Do you want consulting provider notified?: Yes Primary care physician: [facility] Course: Diagnoses: Right lower lobe pneumonia suspicious for aspiration Acute hypoxic respiratory failure, improved patient does not qualify for home oxygen upon discharge Acute kidney injury on chronic kidney disease, improved Chronic kidney disease stage III History of Faye status post liver transplant in 2013 on cellcept History of seizure disorder Obesity with BMI of 32 Hospital course: This is a pleasant 67 years old female with multiple medical problems as below, was was admitted with respiratory symptoms and found to have right lower lobe pneumonia suspicious for aspiration pneumonia. Patient was evaluated by infectious disease team and pulmonary service, she was treated with broad- spectrum antibiotic with ceftriaxone and cefepime at yesterday her antibiotics were adjusted into cefdinir by ID team. Patient will be discharged on 5 more days of cefdinir per my discussion with ID team. She was on 2 L oxygen, today she was evaluated on room air with exertion and her oxygen saturation was 96%. Therefore she does not qualify for home oxygen. Herself she feels improved and wants to go home. She denies any other new symptoms She was here for discharge by pulmonary and ID team Problems and management plan were discussed with the patient and he verbalized understanding and acceptance Patient was found stable and can be discharged home in guarded prognosis however he needs follow-up as an outpatient. Patient was instructed to follow up with PCP Dr. Bhatia within one week and patient agrees Patient was instructed to follow up with Dr. Lopez in one week and Dr. Lacy/Dr. Tripp in 1-2 weeks and she agrees to call and make her own appointment note: Patient thought she had some blood in stool but occult blood in stool came back positive, patient states that she is due for colonoscopy anyway with Dr. Membreno therefore patient instructed to follow up with Dr. Membreno in 2-3 weeks for GI evaluation and she agrees to: 1 appointment Physical exam Gen: patient is a AAOx3, no distress CVS: S1-S2, RRR, no murmur Lungs: B/L CTA, no wheezing Abdomen: soft, no distention, no tenderness, positive bowel sounds Extremity: no leg edema or induration Time spent more than 35 minutes Patient Condition at Discharge: Stable Plan - Discharge Summary Discharge Rx Participant: No New Discharge Prescriptions: New Cefdinir [Omnicef] 300 mg PO BID 5 Days #10 cap Albuterol Inhaler [Ventolin Hfa Inhaler] 2 puff INHALATION QID PRN #8 gm PRN Reason: Shortness Of Breath Or Wheezing Continue Calcium Carbonate/Vitamin D3 [Caltrate 600 Plus D3 20 Mcg (800 Iu)] 1 tab PO DAILY@1700 Thiamine [Vitamin B-1] 100 mg PO DAILY@1700 Omeprazole 20 mg PO BID-W/MEALS NIFEdipine [Procardia XL] 90 mg PO DAILY Montelukast [Singulair] 10 mg PO DAILY@1700 Losartan [Cozaar] 50 mg PO HS mycophenolate mofetiL [Cellcept] 750 mg PO BID-W/MEALS Insulin Aspart Prot/Insuln Asp [Novolog MIX 70-30 Flexpen] 7 units SQ AC- SUPPER ursodioL [Ursodiol] 500 mg PO DAILY Metoprolol Succinate (ER) [Toprol XL] 25 mg PO HS Lacosamide [Vimpat] 100 mg PO BID cloBAZam [Onfi] 10 mg PO BID-W/MEALS Brivaracetam [Briviact] 25 mg PO BID-W/MEALS Insulin Aspart Prot/Insuln Asp [Novolog MIX 70-30 Flexpen] 15 units SQ AC- BRKFST Cholecalciferol [Vitamin D3 (25 Mcg = 1000 Iu)] 50 mcg PO HS ursodioL [Ursodiol] 250 mg PO HS Rosuvastatin Calcium 5 mg PO MOWEFR@1700 Lacosamide [Vimpat] 200 mg PO BID Dapagliflozin Propanediol [Farxiga] 10 mg PO DAILY Semaglutide [Ozempic] 1 mg SQ WE Discharge Medication List Calcium Carbonate/Vitamin D3 [Caltrate 600 Plus D3 20 Mcg (800 Iu)] 1 tab PO DAILY@1700 06/01/16 [History] NIFEdipine [Procardia XL] 90 mg PO DAILY 06/01/16 [History] Omeprazole 20 mg PO BID-W/MEALS 06/01/16 [History] Thiamine [Vitamin B-1] 100 mg PO DAILY@1700 06/01/16 [History] Losartan [Cozaar] 50 mg PO HS 10/04/18 [History] Montelukast [Singulair] 10 mg PO DAILY@1700 10/04/18 [History] mycophenolate mofetiL [Cellcept] 750 mg PO BID-W/MEALS 10/04/18 [History] Brivaracetam [Briviact] 25 mg PO BID-W/MEALS 03/24/23 [History] Cholecalciferol [Vitamin D3 (25 Mcg = 1000 Iu)] 50 mcg PO HS 03/24/23 [History] Dapagliflozin Propanediol [Farxiga] 10 mg PO DAILY 03/24/23 [History] Insulin Aspart Prot/Insuln Asp [Novolog MIX 70-30 Flexpen] 7 units SQ AC-SUPPER 03/24/23 [History] Insulin Aspart Prot/Insuln Asp [Novolog MIX 70-30 Flexpen] 15 units SQ AC-BRKFST 03/24/23 [History] Lacosamide [Vimpat] 100 mg PO BID 03/24/23 [History] Lacosamide [Vimpat] 200 mg PO BID 03/24/23 [History] Metoprolol Succinate (ER) [Toprol XL] 25 mg PO HS 03/24/23 [History] Rosuvastatin Calcium 5 mg PO MOWEFR@1700 03/24/23 [History] Semaglutide [Ozempic] 1 mg SQ WE 03/24/23 [History] cloBAZam [Onfi] 10 mg PO BID-W/MEALS 03/24/23 [History] ursodioL [Ursodiol] 250 mg PO HS 03/24/23 [History] ursodioL [Ursodiol] 500 mg PO DAILY 03/24/23 [History] Albuterol Inhaler [Ventolin Hfa Inhaler] 2 puff INHALATION QID PRN #8 gm 03/30/23 [Rx] Cefdinir [Omnicef] 300 mg PO BID 5 Days #10 cap 03/30/23 [Rx] Follow up Appointment(s)/Referral(s): Sonia Brenner MD [STAFF PHYSICIAN] - 04/05/23 10:15 am Simon Brown MD [Primary Care Provider] - 1-2 days Arlene Membreno MD [STAFF PHYSICIAN] - 3 Weeks (we recommned to evaluate for possible colonoscopy. Office closed for lunch. Please call back after 1pm.) Harry Lopez MD [STAFF PHYSICIAN] - 1 Week Patient Instructions/Handouts: Aspiration Pneumonia (DC), Acute Nausea and Vomiting (DC) Activity/Diet/Wound Care/Special Instructions: PT'S HOME MED (UROSIDOL) IN MED ROOM BIN PT'S HOME MEDS (ONFI AND BRIVIACT) IN BASEMENT PHARMACY heart healthy diet activity is restricted till you see your doctor pt's home meds in pt med bin and inpatient pharmacy returned to pt. 03/30/23. Discharge Disposition: HOME SELF-CARE
== END 2023-03-30 13:46 | disposition home or self-care (01) | DRG 177 ==
LOC: EC 08:16 → 4SSUR 12:54
PROVIDERS: ADMIT Internal Medicine; ATTEND Internal Medicine
DX: J69.0 Pneumonitis due to inhalation of food and vomit (principal); G93.41 Metabolic encephalopathy; J96.01 Acute respiratory failure with hypoxia; D84.9 Immunodeficiency, unspecified; N17.9 Acute kidney failure, unspecified; E87.20 Acidosis, unspecified; Z94.4 Liver transplant status; E11.22 Type 2 diabetes mellitus with diabetic chronic kidney disease; J32.9 Chronic sinusitis, unspecified; M06.9 Rheumatoid arthritis, unspecified; N18.30 Chronic kidney disease, stage 3 unspecified; G40.909 Epilepsy, unspecified, not intractable, without status epilepticus; J44.9 Chronic obstructive pulmonary disease, unspecified; Z79.4 Long term (current) use of insulin; I12.9 Hypertensive chronic kidney disease with stage 1 through stage 4 chronic kidney disease, or unspecified chronic kidney disease; M41.9 Scoliosis, unspecified; E78.5 Hyperlipidemia, unspecified; E86.0 Dehydration; K21.9 Gastro-esophageal reflux disease without esophagitis; K44.9 Diaphragmatic hernia without obstruction or gangrene; I83.93 Asymptomatic varicose veins of bilateral lower extremities; L30.9 Dermatitis, unspecified; E66.9 Obesity, unspecified; Z68.32 Body mass index [BMI] 32.0-32.9, adult; Z79.84 Long term (current) use of oral hypoglycemic drugs; Z79.85 Long-term (current) use of injectable non-insulin antidiabetic drugs; Z79.624 Long term (current) use of inhibitors of nucleotide synthesis; Z79.899 Other long term (current) drug therapy; Z71.3 Dietary counseling and surveillance; Z87.891 Personal history of nicotine dependence; Z87.440 Personal history of urinary (tract) infections; Z87.11 Personal history of peptic ulcer disease; Z88.1 Allergy status to other antibiotic agents; Z91.030 Bee allergy status; Z88.5 Allergy status to narcotic agent; Z88.0 Allergy status to penicillin; Z88.8 Allergy status to other drugs, medicaments and biological substances; Z91.018 Allergy to other foods
CPT/HCPCS: 36415; 51798; 71045; 71046; 80048; 80053; 80158; 81001; 82140; 82272; 83605; 83690; 83735; 84145; 84443; 84484; 85025; 85027; 85610; 85730; 86140; 86738; 87040; 87070; 87205; 87324; 87449; 93005; 94640; 94760; 96361; 96365; 96375; 99285

== ENCOUNTER → 2023-04-14 | Outpatient (CLI) | payer MEDICARE, BC | END | disposition home or self-care (01) | LOC: LABWHC1 07:51 | PROVIDERS: ATTEND Internal Medicine Geriatric Medicine | DX: Z53.9 Procedure and treatment not carried out, unspecified reason (principal) ==

== ENCOUNTER → 2023-05-17 | Day surgery (SDC) | payer MEDICARE, BC ==
[2023-05-15 11:33] VITALS: BMI 31.5
[~2023-05-17] MED LIST: LACTATED RINGERS 1,000 ML IV ONE; LACTATED RINGERS 1,000 ML IV SCH; PROPOFOL 10 MG/ML 20 ML VIAL IV ONE
[2023-05-17 09:58] VITALS: TEMP 97.2
[2023-05-17 10:04] LABS: Glucose,Whole Blood 108 mg/dL (70-110)
--- NOTE | 2023-05-17 11:39 | P.PCN ---
Date of Procedure: 05/17/23 Procedure(s) Performed: BRIEF HISTORY: Patient is a 67-year-old pleasant white female scheduled for an elective colonoscopy as a part of evaluation of prior history of colon polyps. Last colonoscopy was 7 years ago. PROCEDURE PERFORMED: Colonoscopy snare polypectomy. PREOPERATIVE DIAGNOSIS: History of colon polyps. IV sedation per Anesthesia. PROCEDURE: After informed consent was obtained, the patient, was brought into the endoscopy unit. IV sedation was administered by Anesthesia under continuous monitoring. Digital rectal examination was normal. Initially the Olympus CF-160 flexible video colonoscope was then inserted in the rectum, gradually advanced into the cecum without any difficulty. Careful examination was performed as the scope was gradually being withdrawn. Ileocecal valve and the appendiceal orifice were visualized and appeared normal. Prep was fair.. Mucosa of the cecum, had a 2 cm broad-based polyp that was removed by piecemeal snare polypectomy and almost complete polypectomy was performed. Rest of the ascending colon, transverse colon, descending colon, sigmoid colon, and rectum appeared normal. Retroflexion was performed in the rectum and no lesions were seen. The patient tolerated the procedure well. IMPRESSION: 2 cm broad-based cecal polyp status post snare polypectomy Rest of the colon appeared normal RECOMMENDATIONS: Findings of this examination were discussed with the patient as well as a family. She was advised to follow with the biopsy results and have a repeat colonoscopy in 3 years.
[2023-05-17 11:57] VITALS: BP 168/76; PULSE 74; RESP 14
[2023-05-17 12:06] LABS: Glucose,Whole Blood 88 mg/dL (70-110)
== END ==
LOC: ORWHC2ENDO 09:24
PROVIDERS: ATTEND Internal Medicine Gastroenterology
DX: D12.0 Benign neoplasm of cecum (principal); I10 Essential (primary) hypertension; E78.5 Hyperlipidemia, unspecified; J44.9 Chronic obstructive pulmonary disease, unspecified; K21.9 Gastro-esophageal reflux disease without esophagitis; E11.9 Type 2 diabetes mellitus without complications; M06.9 Rheumatoid arthritis, unspecified; K76.9 Liver disease, unspecified; Z88.2 Allergy status to sulfonamides; Z88.5 Allergy status to narcotic agent; Z88.8 Allergy status to other drugs, medicaments and biological substances; Z87.891 Personal history of nicotine dependence; Z86.010 Personal history of colon polyps; Z79.51 Long term (current) use of inhaled steroids; Z79.899 Other long term (current) drug therapy; Z79.84 Long term (current) use of oral hypoglycemic drugs
CPT/HCPCS: 88305; 45385; J2704

== ENCOUNTER 2023-05-22 19:35 | Emergency (ER) | payer MEDICARE, BC ==
--- NOTE | 2023-05-22 20:45 | ED ---
Psych HPI <Jorge Shelley - Last Filed: 05/23/23 16:16> - General Source: patient, police, RN notes reviewed Mode of arrival: ambulatory Limitations: no limitations <Nathan Rogel - Last Filed: 05/23/23 17:18> - General Chief Complaint: Psychiatric Symptoms Stated Complaint: Petitioned Time Seen by Provider: 05/22/23 20:44 - History of Present Illness Initial Comments: 67-year-old female presents emergency Department with police for psychiatric evaluation. Patient was petitioned and brought here for evaluation. Patient has been making multiple accusations and reportedly may have underlying dementi a. Patient denies being homicidal or suicidal denies any illicit drug use no alcohol abuse. (Nathan Rogel) - Related Data Home Medications Medication Instructions Recorded Confirmed NIFEdipine [Procardia XL] 90 mg PO DAILY 06/01/16 05/23/23 Omeprazole 20 mg PO BID@0900,1700 06/01/16 05/23/23 Montelukast [Singulair] 10 mg PO DAILY@17010/04/18 05/23/23 mycophenolate mofetiL [Cellcept] 750 mg PO BID@0900,1700 10/04/18 05/23/23 Brivaracetam [Briviact] 25 mg PO BID@0900,169903/24/23 05/23/23 Dapagliflozin Propanediol [Farxiga] 10 mg PO DAILY 03/24/23 05/23/23 Insulin Aspart Prot/Insuln Asp 7 units SQ AC-SUPPER 03/24/23 05/23/23 [Novolog MIX 70-30 Flexpen] Insulin Aspart Prot/Insuln Asp 15 units SQ AC-BRKFST 03/24/23 05/23/23 [Novolog MIX 70-30 Flexpen] Lacosamide [Vimpat] 100 mg PO BID 03/24/23 05/23/23 Rosuvastatin Calcium 5 mg PO MOWEFR@169903/24/23 05/23/23 Semaglutide [Ozempic] 1 mg SQ WE 03/24/23 05/23/23 cloBAZam [Onfi] 10 mg PO BID@0900,1700 03/24/23 05/23/23 ursodioL [Ursodiol] 250 mg PO DAILY@1700 03/24/23 05/23/23 Topiramate 100 mg PO BID@0900,1700 05/15/23 05/23/23 Albuterol Sulfate [Albuterol 2 puff INHALATION RT-Q4H PRN 05/23/23 05/23/23 Sulfate Hfa] Lacosamide [Vimpat] 200 mg PO BID 05/23/23 05/23/23 Losartan [Cozaar] 25 mg PO DAILY 05/23/23 05/23/23 Pravastatin Sodium [Pravachol] 10 mg PO HS 05/23/23 05/23/23 cycloSPORINE, MODIFIED [Neoral] 50 mg PO HS 05/23/23 05/23/23 cycloSPORINE, MODIFIED [Neoral] 75 mg PO DAILY 05/23/23 05/23/23 ursodioL [Ursodiol] 500 mg PO DAILY 05/23/23 05/23/23 Allergies Allergy/AdvReac Type Severity Reaction Status Date / Time venom-honey bee Allergy Severe Swelling Verified 05/23/23 16:35 [bee venom (honey bee)] ciprofloxacin Allergy Rash/Hives Verified 05/23/23 16:35 codeine Allergy Rash/Hives Verified 05/23/23 16:35 erythromycin base Allergy Rash/Hives Verified 05/23/23 16:35 levofloxacin Allergy Rash/Hives Verified 05/23/23 16:35 lisinopril Allergy Rash/Hives Verified 05/23/23 16:35 metformin Allergy Swelling Verified 05/23/23 16:35 of throat moxifloxacin Allergy Rash/Hives Verified 05/23/23 16:35 Penicillins Allergy hives, Verified 05/23/23 16:35 swelling plum Allergy Unknown Verified 05/23/23 16:35 rofecoxib Allergy Rash/Hives Verified 05/23/23 16:35 Tetracyclines Allergy Rash/Hives Verified 05/23/23 16:35 Review of Systems ROS Other: All systems not noted in ROS Statement are negative. <Jorge Shelley - Last Filed: 05/23/23 16:16> ROS Other: All systems not noted in ROS Statement are negative. <Nathan Rogel - Last Filed: 05/23/23 17:18> ROS Statement: Those systems with pertinent positive or pertinent negative responses have been documented in the HPI. 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 History of Any Multi-Drug Resistant Organisms: None Reported Past Surgical History: Bowel Resection, Breast Surgery, Cholecystectomy, Hernia Repair, Hysterectomy, Tonsillectomy, Tubal Ligation Additional Past Surgical History / Comment(s): 2013 liver transplant at [facility], bowel resection d/t strangulation, L breast bx/lumpectomy-benign, abdominal hernia repair x2, R carpel tunnel release, colonoscopy/polypectomy, R foot heel spur, bilateral cataract removal with lens implants. Past Anesthesia/Blood Transfusion Reactions: No Reported Reaction Past Psychological History: No Psychological Hx Reported Smoking Status: Former smoker Past Alcohol Use History: None Reported Past Drug Use History: None Reported - Past Family History Father Family Medical History: Myocardial Infarction ([place]) Additional Family Medical History / Comment(s): Father of a [place] at the age of 44yrs. Mother Family Medical History: Coronary Artery Disease (CAD), Dementia, Diabetes Mellitus Additional Family Medical History / Comment(s): Mother at the age of 78yrs. <Nathan Rogel - Last Filed: 05/23/23 17:18> General Exam Limitations: no limitations General appearance: alert, in no apparent distress Head exam: Present: atraumatic, normocephalic, normal inspection Eye exam: Present: normal appearance, PERRL, EOMI. Absent: scleral icterus, conjunctival injection, periorbital swelling ENT exam: Present: normal exam, normal oropharynx, mucous membranes moist Neck exam: Present: normal inspection, full ROM. Absent: tenderness, meningismus, lymphadenopathy Respiratory exam: Present: normal lung sounds bilaterally. Absent: respiratory distress, wheezes, rales, rhonchi, stridor Cardiovascular Exam: Present: regular rate, normal rhythm, normal heart sounds. Absent: systolic murmur, diastolic murmur, rubs, gallop, clicks GI/Abdominal exam: Present: soft, normal bowel sounds. Absent: distended, tenderness, guarding, rebound, rigid Neurological exam: Present: alert, oriented X3 Psychiatric exam: Present: normal affect, normal mood <Nathan Rogel - Last Filed: 05/23/23 17:18> - General Exam Comments Initial Comments: Visual Physical Exam Vital signs reviewed General: Well-appearing, nontoxic, no acute distress. Head: Normocephalic, atraumatic Eyes: PERRLA, EOMI ENT: Airway patent Chest: Nonlabored breathing Skin: No visual rash, normal skin tone Neuro: Alert and oriented 3 Musculoskeletal: No gross abnormalities (Nathan Rogel) Course Vital Signs 05/22/23 05/23/23 05/23/23 20:40 06:00 07:57 Temperature 98.2 F 98.6 F Pulse Rate 99 80 Respiratory 18 17 16 Rate Blood Pressure 132/76 113/72 O2 Sat by Pulse 98 98 Oximetry 05/23/23 08:00 Temperature Pulse Rate Respiratory 14 Rate Blood Pressure O2 Sat by Pulse Oximetry Medical Decision Making - Lab Data Result diagrams: 05/22/23 21:09 05/22/23 21:09 <Jorge Shelley - Last Filed: 05/23/23 16:16> - Lab Data Result diagrams: 05/22/23 21:09 05/22/23 21:09 <Nathan Rogel - Last Filed: 05/23/23 17:18> - Medical Decision Making Patient reevaluated by myself, Dr. Shelley. Patient resting comfortably in bed. Patient originally states nothing is wrong. Patient later admits to not sleeping well. Patient states that her is constantly stealing from her and being angry and mad with her. Patient is labile and tearful. Petition reviewed. Patient was seen by mental health services with plans for admission or transfer. Positive clinical certificate completed. (Jorge Shelley) I performed a quick note portion of the signed Nathan Rogel PA-C Was pt. sent in by a medical professional or institution (, MARILY, RN LABOR DELIVERY, urgent care, hospital, or usp...) When possible be specific @ -No Did you speak to anyone other than the patient for history (EMS, parent, family, police, friend...)? What history was obtained from this source @ -Police who presented with core her petition Did you review nursing and triage notes (agree or disagree)? Why? @ -I reviewed and agree with nursing and triage notes Were old charts reviewed (outside hosp., previous admission, EMS record, old EKG, old radiological studies, urgent care reports/EKG's, usp records)? Report findings @ -No old charts were reviewed Differential Diagnosis (chest pain, altered mental status, abdominal pain women, abdominal pain men, vaginal bleeding, weakness, fever, dyspnea, syncope, headache, dizziness, GI bleed, back pain, seizure, CVA, palpatations, mental health, musculoskeletal)? @ -Differential Mental Health Depression, anxiety, bipolar, psychosis, schizophrenia, borderline personality, situational depression, adjustment disorder, behavioral disorder, brain tumor, malingering, substance abuse, encephalopathy, medication reaction, dementia, hypothyroidism, degenerative neurologic disorder, lupus.... This is not meant to be all-inclusive liste EKG interpreted by me (3pts min.). @ -None X-rays interpreted by me (1pt min.). @ -None done CT interpreted by me (1pt min.). @ -None done U/S interpreted by me (1pt. min.). @ -None done What testing was considered but not performed or refused? (CT, X-rays, U/S, labs)? Why? @ -None What meds were considered but not given or refused? Why? @ -None Did you discuss the management of the patient with other professionals (professionals i.e. , PA, RN LABOR DELIVERY, lab, RT, psych nurse, social work lecturer, drafter (cad) electronic, t eacher, civil preparedness training officer, telephonic case manager)? Give summary @ -EPS, psychiatrist who evaluated the patient recommends patient be transferred to psychiatric facility Was smoking cessation discussed for >3mins.? @ -No Was critical care preformed (if so, how long)? @ -No Were there social determinants of health that impacted care today? How? (Homelessness, low income, unemployed, alcoholism, drug addiction, transportation, low edu. Level, literacy, decrease access to med. care, prison, rehab)? @ -No Was there de-escalation of care discussed even if they declined (Discuss DNR or withdrawal of care, Hospice)? DNR status @ -No What co-morbidities impacted this encounter? (DM, HTN, Smoking, COPD, CAD, Cancer, CVA, ARF, Chemo, Hep., AIDS, mental health diagnosis, sleep apnea, morbid obesity)? @ -None Was patient admitted / discharged? Hospital course, mention meds given and rou te, prescriptions, significant lab abnormalities, going to OR and other pertinent info. @ -Transferred to psychiatric facility for acute psychosis, paranoia Undiagnosed new problem with uncertain prognosis? @ -No Drug Therapy requiring intensive monitoring for toxicity (Heparin, Nitro, Insulin, Cardizem)? @ -No Were any procedures done? @ -[No] Diagnosis/symptom? @ -[Psychosis] Acute, or Chronic, or Acute on Chronic? @ -[Acute] Uncomplicated (without systemic symptoms) or Complicated (systemic symptoms)? @ -[Complicated] Side effects of treatment? @ -[No] Exacerbation, Progression, or Severe Exacerbation? @ -[No] Poses a threat to life or bodily function? How? (Chest pain, [place], [place], pneumonia, PE, COPD, DKA, ARF, appy, cholecystitis, CVA, Diverticulitis, Homicidal, Suicidal, threat to staff... and all critical care pts) @ -[No] (Nathan Rogel) - Lab Data Lab Results 05/22/23 05/22/23 05/23/23 Range/Units 21:09 21:09 06:22 WBC 12.0 H (3.8-10.6) k/uL RBC 5.03 (3.80-5.40) m/uL Hgb 13.7 (11.4-16.0) gm/dL Hct 43.4 (34.0-46.0) % MCV 86.3 (80.0-100.0) fL MCH 27.3 (25.0-35.0) pg MCHC 31.7 (31.0-37.0) g/dL RDW 14.7 (11.5-15.5) % Plt Count 290 (150-450) k/uL MPV 7.9 Neutrophils % 77 % Lymphocytes % 14 % Monocytes % 5 % Eosinophils % 3 % Basophils % 0 % Neutrophils # 9.2 H (1.3-7.7) k/uL Lymphocytes # 1.7 (1.0-4.8) k/uL Monocytes # 0.7 (0-1.0) k/uL Eosinophils # 0.3 (0-0.7) k/uL Basophils # 0.0 (0-0.2) k/uL Hypochromasia Slight Sodium 141 (137-145) mmol/L Potassium 4.5 (3.5-5.1) mmol/L Chloride 110 H (98-107) mmol/L Carbon Dioxide 20 L (22-30) mmol/L Anion Gap 11 mmol/L BUN 26 H (7-17) mg/dL Creatinine 1.39 H (0.52-1.04) mg/dL Est GFR (CKD-EPI)AfAm 46 (>60 ml/min/1.73 sqM) Est GFR (CKD-EPI)NonAf 40 (>60 ml/min/1.73 sqM) Glucose 178 H (74-99) mg/dL POC Glucose (mg/dL) (70-110) mg/dL POC Glu [facility] Calcium 10.3 H (8.4-10.2) mg/dL Total Bilirubin 0.4 (0.2-1.3) mg/dL AST 18 (14-36) U/L ALT 16 (4-34) U/L Alkaline Phosphatase 164 H (38-126) U/L Total Protein 6.4 (6.3-8.2) g/dL Albumin 4.0 (3.5-5.0) g/dL Urine Color Urine Appearance (Clear) Urine pH (5.0-8.0) Ur Specific Ramsey (1.001-1.035) Urine Protein (Negative) Urine Glucose (UA) (Negative) Urine Ketones (Negative) Urine Blood (Negative) Urine Nitrite (Negative) Urine Bilirubin (Negative) Urine Urobilinogen (<2.0) mg/dL Ur Leukocyte Esterase (Negative) Urine RBC (0-5) /hpf Urine WBC (0-5) /hpf Ur Squamous Epith Cells (0-4) /hpf Amorphous Sediment (None) /hpf Urine Bacteria (None) /hpf Urine Mucus (None) /hpf Urine Opiates Screen Not Detected (NotDetected) Ur Oxycodone Screen Not Detected (NotDetected) Urine Methadone Screen Not Detected (NotDetected) Ur Propoxyphene Screen Not Detected (NotDetected) Ur Barbiturates Screen Not Detected (NotDetected) U Tricyclic Antidepress Not Detected (NotDetected) Ur Phencyclidine Scrn Not Detected (NotDetected) Ur Amphetamines Screen Not Detected (NotDetected) U Methamphetamines Scrn Not Detected (NotDetected) U Benzodiazepines Scrn Detected H (NotDetected) Urine Cocaine Screen Not Detected (NotDetected) U Marijuana (THC) Screen Not Detected (NotDetected) 05/23/23 05/23/23 05/23/23 Range/Units 06:22 11:44 16:34 WBC (3.8-10.6) k/uL RBC (3.80-5.40) m/uL Hgb (11.4-16.0) gm/dL Hct (34.0-46.0) % MCV (80.0-100.0) fL MCH (25.0-35.0) pg MCHC (31.0-37.0) g/dL RDW (11.5-15.5) % Plt Count (150-450) k/uL MPV Neutrophils % % Lymphocytes % % Monocytes % % Eosinophils % % Basophils % % Neutrophils # (1.3-7.7) k/uL Lymphocytes # (1.0-4.8) k/uL Monocytes # (0-1.0) k/uL Eosinophils # (0-0.7) k/uL Basophils # (0-0.2) k/uL Hypochromasia Sodium (137-145) mmol/L Potassium (3.5-5.1) mmol/L Chloride (98-107) mmol/L Carbon Dioxide (22-30) mmol/L Anion Gap mmol/L BUN (7-17) mg/dL Creatinine (0.52-1.04) mg/dL Est GFR (CKD-EPI)AfAm (>60 ml/min/1.73 sqM) Est GFR (CKD-EPI)NonAf (>60 ml/min/1.73 sqM) Glucose (74-99) mg/dL POC Glucose (mg/dL) 122 H 143 H (70-110) mg/dL POC Glu [facility] ID Lesley, Sammi Coupland, Amanda Calcium (8.4-10.2) mg/dL Total Bilirubin (0.2-1.3) mg/dL AST (14-36) U/L ALT (4-34) U/L Alkaline Phosphatase (38-126) U/L Total Protein (6.3-8.2) g/dL Albumin (3.5-5.0) g/dL Urine Color Light Yellow Urine Appearance Clear (Clear) Urine pH 5.5 (5.0-8.0) Ur Specific Ramsey 1.017 (1.001-1.035) Urine Protein Negative (Negative) Urine Glucose (UA) 4+ H (Negative) Urine Ketones Negative (Negative) Urine Blood Negative (Negative) Urine Nitrite Negative (Negative) Urine Bilirubin Negative (Negative) Urine Urobilinogen <2.0 (<2.0) mg/dL Ur Leukocyte Esterase Trace H (Negative) Urine RBC 1 (0-5) /hpf Urine WBC 9 H (0-5) /hpf Ur Squamous Epith Cells 3 (0-4) /hpf Amorphous Sediment Rare H (None) /hpf Urine Bacteria Rare H (None) /hpf Urine Mucus Rare H (None) /hpf Urine Opiates Screen (NotDetected) Ur Oxycodone Screen (NotDetected) Urine Methadone Screen (NotDetected) Ur Propoxyphene Screen (NotDetected) Ur Barbiturates Screen (NotDetected) U Tricyclic Antidepress (NotDetected) Ur Phencyclidine Scrn (NotDetected) Ur Amphetamines Screen (NotDetected) U Methamphetamines Scrn (NotDetected) U Benzodiazepines Scrn (NotDetected) Urine Cocaine Screen (NotDetected) U Marijuana (THC) Screen (NotDetected) Disposition <Jorge Shelley - Last Filed: 05/23/23 16:16> Time of Disposition: 16:05 <Nathan Rogel - Last Filed: 05/23/23 17:18> Clinical Impression: Psychosis Disposition: TRANSFER TO PSYCH HOSP/UNIT Condition: Fair Referrals: Simon Brown MD [Primary Care Provider] - 1-2 days
[2023-05-22 21:27] LABS: Basophils % (A) 0 %; Eosinophils # (A) 0.3 k/uL (0-0.7); Eosinophils % (A) 3 %; HCT 43.4 % (34.0-46.0); HGB 13.7 gm/dL (11.4-16.0); Hypochromasia Slight; Lymphocytes # (A) 1.7 k/uL (1.0-4.8); Lymphocytes % (A) 14 %; MCH 27.3 pg (25.0-35.0); MCHC 31.7 g/dL (31.0-37.0); MCV 86.3 fL (80.0-100.0); Mean Platelet Volume 7.9; Monocytes # (A) 0.7 k/uL (0-1.0); Monocytes % (A) 5 %; Neutrophils # (A) 9.2 k/uL (1.3-7.7); Neutrophils % (A) 77 %; Platelet Count 290 k/uL (150-450); RBC 5.03 m/uL (3.80-5.40); RDW 14.7 % (11.5-15.5)
[2023-05-22 21:38] LABS: ALT 16 U/L (4-34); AST 18 U/L (14-36); African American GFR (CKD) 46 (>60 ml/min/1.73 sqM); Alkaline Phosphatase 164 U/L (38-126); Anion Gap 11 mmol/L; Blood Urea Nitrogen 26 mg/dL (7-17); Calcium 10.3 mg/dL (8.4-10.2); Carbon Dioxide 20 mmol/L (22-30); Chloride 110 mmol/L (98-107); Glucose 178 mg/dL (74-99); Non-African American GFR(CKD) 40 (>60 ml/min/1.73 sqM); Potassium 4.5 mmol/L (3.5-5.1); Sodium 141 mmol/L (137-145); Total Bilirubin 0.4 mg/dL (0.2-1.3); Total Protein 6.4 g/dL (6.3-8.2)
[2023-05-23 07:02] LABS: Amorphous Sediment,Urine Rare /hpf; Appearance,Urine Clear (Clear); Bacteria,Urine Rare /hpf; Bilirubin,Urine Negative (Negative); Blood,Urine Negative (Negative); Color,Urine Light Yellow; Glucose,Urine (UA) 4+ (Negative); Ketones,Urine Negative (Negative); Leukocyte Esterase,Urine Trace (Negative); Mucus,Urine Rare /hpf; Nitrite,Urine Negative (Negative); PH, Urine 5.5 (5.0-8.0); Protein,Urine Negative (Negative); RBC,Urine 1 /hpf (0-5); Specific Gravity,Urine 1.017 (1.001-1.035); Squamous Epithelial Cell,Urine 3 /hpf (0-4); Urobilinogen,Urine <2.0 mg/dL (<2.0); WBC,Urine 9 /hpf (0-5)
[2023-05-23 07:10] LABS: Amphetamine Screen,Urine Not Detected (NotDetected); Barbiturate Screen,Urine Not Detected (NotDetected); Benzodiazepines Screen,Urine Detected (NotDetected); Cocaine Screen,Urine Not Detected (NotDetected); Methadone Screen, Urine Not Detected (NotDetected); Opiate Screen,Urine Not Detected (NotDetected); Oxycodone Screen, Urine Not Detected (NotDetected); Phencyclidine Screen,Urine Not Detected (NotDetected); Tricyclic Antidepressant,Urine Not Detected (NotDetected); Urn Cannabinoid Scrn Not Detected (NotDetected)
[2023-05-23 11:47] LABS: Glucose,Whole Blood 122 mg/dL (70-110)
[2023-05-23 16:36] LABS: Glucose,Whole Blood 143 mg/dL (70-110)
[2023-05-23] MEDS ORDERED: ALBUTEROL NEBULIZED 2.5 MG/3 ML INHALATION PRN (17:55)
[2023-05-23] MEDS ORDERED: TOPIRAMATE 100 MG TABLET PO SCH (19:00)
[2023-05-23] MEDS ORDERED: INSULN ASP PRT/INSULIN ASPART 100 UNIT/ML 10 ML VIAL SQ SCH (19:00)
[2023-05-23] MEDS: BRIVARACETAM 25 MG PO SCH (20:38)
[2023-05-23] MEDS: TOPIRAMATE 100 MG TABLET PO SCH (20:40)
[2023-05-23] MEDS: CLOBAZAM 10 MG PO SCH (20:45)
[2023-05-23] MEDS ORDERED: PRAVASTATIN SODIUM 20 MG TAB PO SCH (21:00)
[2023-05-23] MEDS ORDERED: NON FORMULARY DRUG (Lacosamide [Vimpat] 100 MG Tablet) PO SCH (21:00)
[2023-05-23 22:30] LABS: Glucose,Whole Blood 120 mg/dL (70-110)
[2023-05-23] MEDS: LACOSAMIDE 150 MG TABLET PO SCH (23:25)
[2023-05-24] MEDS ORDERED: INSULN ASP PRT/INSULIN ASPART 100 UNIT/ML 10 ML VIAL SQ SCH ×2 (07:30→19:00)
[2023-05-24 08:28] LABS: Glucose,Whole Blood 118 mg/dL (70-110)
[2023-05-24] MEDS: TOPIRAMATE 100 MG TABLET PO SCH (08:49)
[2023-05-24] MEDS ORDERED: DAPAGLIFLOZIN PROPANEDIOL 10 MG TABLET PO SCH (09:00)
[2023-05-24] MEDS ORDERED: CLOBAZAM 10 MG PO SCH (09:00)
[2023-05-24] MEDS ORDERED: LOSARTAN 25 MG TAB PO SCH (09:00)
[2023-05-24] MEDS ORDERED: NIFEdipine XL 90 MG TAB.ER.24 PO SCH (09:00)
[2023-05-24] MEDS ORDERED: PANTOPRAZOLE 40 MG TABLET PO SCH (09:00)
[2023-05-24] MEDS: CLOBAZAM 10 MG PO SCH (09:21)
[2023-05-24] MEDS: BRIVARACETAM 25 MG PO SCH (09:21)
[2023-05-24] MEDS: LACOSAMIDE 150 MG TABLET PO SCH (09:42)
[2023-05-24] MEDS ORDERED: SEMAGLUTIDE 1 MG/0.75 ML SQ SCH (15:30)
[2023-05-24 16:19] VITALS: BP 122/74; PULSE 72; RESP 18; TEMP 98.6
[2023-05-24] MEDS ORDERED: URSODIOL 250 MG PO SCH (17:00)
[2023-05-24] MEDS ORDERED: MONTELUKAST 10 MG TAB PO SCH (17:00)
[2023-05-24] MEDS ORDERED: ATORVASTATIN 10 MG TAB PO SCH (17:00)
[2023-05-24] MEDS ORDERED: NON FORMULARY DRUG (Semaglutide [Ozempic] 1 MG/0.75 ML Each) SQ SCH (17:55)
== END 2023-05-24 16:06 ==
LOC: EC 19:35
DX: F29 Unspecified psychosis not due to a substance or known physiological condition (principal); J44.9 Chronic obstructive pulmonary disease, unspecified; K21.9 Gastro-esophageal reflux disease without esophagitis; I12.9 Hypertensive chronic kidney disease with stage 1 through stage 4 chronic kidney disease, or unspecified chronic kidney disease; E11.22 Type 2 diabetes mellitus with diabetic chronic kidney disease; E66.9 Obesity, unspecified; E78.5 Hyperlipidemia, unspecified; N18.30 Chronic kidney disease, stage 3 unspecified; Z79.4 Long term (current) use of insulin; Z79.84 Long term (current) use of oral hypoglycemic drugs; Z79.899 Other long term (current) drug therapy; Z87.891 Personal history of nicotine dependence; Z88.0 Allergy status to penicillin; Z88.1 Allergy status to other antibiotic agents; Z88.8 Allergy status to other drugs, medicaments and biological substances; Z91.030 Bee allergy status; Z68.33 Body mass index [BMI] 33.0-33.9, adult; Z20.822 Contact with and (suspected) exposure to COVID-19
CPT/HCPCS: 99285; 96372; 82075; 36415 ×3; 80053; 85025; 81001; 80306; 87635; J7517; J7515 ×2

== ENCOUNTER → 2023-07-26 | Outpatient (CLI) | payer MEDICARE, BC ==
[2023-07-26 15:02] LABS: Basophils # (A) 0.05 X 10*3/uL (0.00-0.10); Basophils % (A) 0.6 %; Eosinophils # (A) 0.24 X 10*3/uL (0.04-0.35); Eosinophils % (A) 2.8 %; HCT 43.5 % (37.2-46.3); HGB 13.3 g/dL (12.0-15.0); Lymphocytes # (A) 1.22 X 10*3/uL (0.90-5.00); Lymphocytes % (A) 14.3 %; MCH 26.6 pg (27.0-32.0); MCHC 30.6 g/dL (32.0-37.0); Mean Platelet Volume 11.4 FL (9.5-12.2); Monocytes # (A) 0.73 X 10*3/uL (0.20-1.00); Monocytes % (A) 8.6 %; NRBC Per 100 WBC 0 X 10*3/uL (0.00-0.01); Neutrophils # (A) 6.24 X 10*3/uL (1.80-7.70); Neutrophils % (A) 73.2 %; Platelet Count 286 X 10*3/uL (140-440); RDW 14.1 % (11.5-14.5); WBC 8.52 X 10*3/uL (4.50-10.00)
[2023-07-26 15:43] LABS: ALT 17 U/L (8-44); AST 11 U/L (13-35); Albumin 4.4 g/dL (3.8-4.9); Alkaline Phosphatase 177 U/L (41-126); BUN/Creat Ratio 21.07 Ratio (12.00-20.00); Blood Urea Nitrogen 29.5 mg/dL (9.0-27.0); Calcium 10.3 mg/dL (8.7-10.3); Chloride 111 mmol/L (96-109); Chol/HDL Ratio 3.25 Ratio; GGT 70 U/L (0-38); Globulin 2.1 g/dL (1.6-3.3); Glucose 126 mg/dL (70-110); LDL Cholesterol,Calculated 82.6 mg/dL (0.0-131.0); Magnesium 2.2 mg/dL (1.5-2.4); Potassium 4.8 mmol/L (3.5-5.5); Sodium 144 mmol/L (135-145); Total Bilirubin 0.2 mg/dL (0.3-1.2); Total Protein 6.5 g/dL (6.2-8.2); Uric Acid 5.5 mg/dL (2.9-7.7)
[2023-07-26 18:41] LABS: Microalbumin Creatinine Ratio <11 mg/g Cr (0-30)
== END | disposition home or self-care (01) ==
LOC: LABWHC1 08:18
PROVIDERS: ATTEND Internal Medicine
DX: E11.22 Type 2 diabetes mellitus with diabetic chronic kidney disease (principal); N18.31 Chronic kidney disease, stage 3a; D84.9 Immunodeficiency, unspecified; Z94.4 Liver transplant status
CPT/HCPCS: 80158; 80061; 80053; 82977; 83735; 84443; 84550; 85025; 82043; 82570; 83036; 36415; G0480; 80321

== ENCOUNTER → 2023-08-04 | Outpatient (CLI) | payer MEDICARE, BC ==
--- NOTE | 2023-08-09 09:24 | MM ---
Reason for Exam: Screening (asymptomatic). Last mammogram was performed 2 year(s) and 2 month(s) ago. Patient History: Menarche at age 11. First Full-Term at age 20. Left ovary removed at age 44. Right ovary removed at age 44. Hysterectomy at age 44. Postmenopausal. Patient used Progesterone for 2 years. Hormonal Contraceptives for 3 months. Maternal aunt had breast cancer. Risk Values: Veronica 5 year model risk: 1.3%. NCI Lifetime model risk: 4.6%. Prior Study Comparison: 04/28/2016 Bilateral Screening Mammogram, [facility]. 05/18/2021 Bilateral Screening Mammogram, [facility]. 07/25/2022 Left MG 3D diag mammo w/cad , [facility]. Tissue Density: There are scattered fibroglandular densities. Findings: Analyzed By CAD. There is no suspicious group of microcalcifications or new suspicious mass. Benign-appearing calcifications bilaterally. Overall Assessment: Benign, BI-RAD 2 Management: Screening Mammogram of both breasts in [address] [facility] will attempt to contact patient to return for supplemental views and ultrasound if indicated. Patient should continue monthly self-breast exams. A clinical breast exam by your physician is recommended on an annual basis. This exam should not preclude additional follow-up of suspicious palpable abnormalities. Note on Veronica scores and lifetime risk: 1. A Veronica score greater than 3% is considered moderate risk. If this is the case, consider specialist referral to assess eligibility for a risk reducing agent. 2. If overall lifetime risk for the development of breast cancer is 20% or higher, the patient may qualify for future screening with alternating mammogram and breast MRI. Electronically signed and approved by: Andrea Christopher DO
== END | disposition home or self-care (01) ==
LOC: RADMAMWWP 06:50
PROVIDERS: ATTEND Internal Medicine Geriatric Medicine
DX: Z12.31 Encounter for screening mammogram for malignant neoplasm of breast (principal); Z78.0 Asymptomatic menopausal state; Z80.3 Family history of malignant neoplasm of breast
CPT/HCPCS: 77063; 77067

== ENCOUNTER → 2023-08-18 | Outpatient (CLI) | payer MEDICARE, BC ==
--- NOTE | 2023-08-20 12:05 | BD ---
EXAMINATION TYPE: Axial Bone Density DATE OF EXAM: 08/18/2023 CLINICAL HISTORY: 68 years old Female. ICD-10 CODE: M81.0 AGE-RELATED OSTEOPOROSIS W/O CURRENT PATHO LO Height: 4 ft 11in Weight: 174.0 FRAX RISK QUESTIONS: Alcohol (3 or more units per day): no Family History (Parent hip fracture): no Glucocorticoids (More than 3mos): no (Ex: prednisone, prednisolone, methylprednisolone, dexamethasone, and hydrocortisone). History of Fracture in Adulthood: no Secondary Osteoporosis: 1. Type 1 Diabetes: no 2. Hyperthyroidism: no 3. Menopause before 45: no 4. Malnutrition: yes 5. Chronic liver disease: yes Rheumatoid Arthritis: yes Current Tobacco Use: no RISK FACTORS HISTORY OF: Surgery to Spine/Hip(right/left)/Wrist (right/left): no Additional History: liver transplant 2013 EXAM MEASUREMENTS: Bone mineral densitometry was performed using the [employer] System. Bone mineral density as measured about the Lumbar spine is: ----- L1-L4(G/cm2): 0.937 T Score Values are as follows: ----- L1: -2.0 ----- L2: -2.6 ----- L3: -1.3 ----- L4: -2.3 ----- L1-L4: -2.0 Z Score Values are as follows: ----- L1: -0.8 ----- L2: -1.5 ----- L3: -0.1 ----- L4: -1.2 ----- L1-L4: -0.9 Bone mineral density has: decreased -6.5 % since study of: 2016 Bone mineral density about the R hip (g/cm2): 0.844 Bone mineral density about the L hip (g/cm2): 0.810 T Score values are as follows: -----R Neck: -2.0 -----L Neck: -2.6 -----R Total: -1.3 -----L Total: -1.6 Z Score values are as follows: -----R Neck: -0.7 -----L Neck: -1.4 -----R Total: -0.3 -----L Total: -0.6 Bone mineral density has: decreased -9.9 % since study of: 2016 FRAX%s: The graph provided illustrates a 17.5% chance for a major osteoporotic fx and a 4.5% chance f or the hips probability for fx in 10 years time. IMPRESSION: Osteoporosis (T Score less than -2.5). There is increased fracture risk and therapy is usually indicated based on age. Re-Screen 1-2 years. NOTE: T-SCORE=SD OF THE YOUNG ADULT MEAN.
== END | disposition home or self-care (01) ==
LOC: RADBDWWP 06:53
PROVIDERS: ATTEND Internal Medicine Geriatric Medicine
DX: M81.0 Age-related osteoporosis without current pathological fracture (principal); M85.89 Other specified disorders of bone density and structure, multiple sites
CPT/HCPCS: 77080

== ENCOUNTER → 2023-11-21 | Outpatient (CLI) | payer MEDICARE, BC ==
[2023-11-21 16:18] LABS: Basophils # (A) 0.03 X 10*3/uL (0.00-0.10); Basophils % (A) 0.5 %; HCT 45.6 % (37.2-46.3); Lymphocytes # (A) 0.82 X 10*3/uL (0.90-5.00); Lymphocytes % (A) 12.4 %; MCH 26.2 pg (27.0-32.0); MCHC 30.7 g/dL (32.0-37.0); MCV 85.2 FL (80.0-97.0); Mean Platelet Volume 10.9 FL (9.5-12.2); Monocytes # (A) 0.63 X 10*3/uL (0.20-1.00); Monocytes % (A) 9.5 %; NRBC Per 100 WBC 0 X 10*3/uL (0.00-0.01); Neutrophils # (A) 4.91 X 10*3/uL (1.80-7.70); Platelet Count 253 X 10*3/uL (140-440); RBC 5.35 X 10*6/uL (4.10-5.20); RDW 14.5 % (11.5-14.5); WBC 6.63 X 10*3/uL (4.50-10.00)
[2023-11-21 16:30] LABS: BUN/Creat Ratio 14.64 Ratio (12.00-20.00); Blood Urea Nitrogen 20.5 mg/dL (9.0-27.0); Chloride 111 mmol/L (96-109); GGT 61 U/L (0-38); Glucose 155 mg/dL (70-110); Magnesium 1.9 mg/dL (1.5-2.4); Potassium 4.4 mmol/L (3.5-5.5); Sodium 145 mmol/L (135-145)
[2023-11-21 16:31] LABS: ALT 14 U/L (8-44); AST 11 U/L (13-35); Albumin 4.2 g/dL (3.8-4.9); Albumin/Globulin Ratio 1.91 Ratio (1.60-3.17); Alkaline Phosphatase 175 U/L (41-126); Bilirubin, Conjugated <0.20 mg/dL (0.20-0.40); Bilirubin,Unconjugated >0.20 mg/dL (0.20-1.00); Calcium 10.2 mg/dL (8.7-10.3); Globulin 2.2 g/dL (1.6-3.3); Total Bilirubin 0.4 mg/dL (0.3-1.2); Total Protein 6.4 g/dL (6.2-8.2)
== END | disposition home or self-care (01) ==
LOC: LABWHC1 08:16
PROVIDERS: ATTEND Internal Medicine
DX: E11.65 Type 2 diabetes mellitus with hyperglycemia (principal); Z94.4 Liver transplant status
CPT/HCPCS: 36415; 80053; 80158; 82248; 82465; 82977; 83036; 83735; 85025

== ENCOUNTER → 2024-08-27 | Outpatient (CLI) | payer MEDICARE, BC ==
--- NOTE | 2024-08-28 10:10 | MM ---
Reason for Exam: Screening (asymptomatic). Last mammogram was performed 1 year(s) and 1 month(s) ago. Patient History: Menarche at age 11. First Full-Term at age 20. Left ovary removed at age 44. Right ovary removed at age 44. Hysterectomy at age 44. Postmenopausal. Patient used Progesterone for 2 years. Hormonal Contraceptives for 3 months. Maternal aunt had breast cancer. Risk Values: Veronica 5 year model risk: 1.4%. NCI Lifetime model risk: 4.4%. Prior Study Comparison: 05/18/2021 Bilateral Screening Mammogram, [facility]. 07/25/2022 Left MG 3D diag mammo w/cad LT, [facility]. 08/04/2023 Bilateral MG 3D screening mammo w/cad, [facility]. Tissue Density: The breasts are heterogeneously dense, which may obscure small masses. Findings: Analyzed By CAD. Benign-appearing rounded and linear calcifications are redemonstrated. Stable circumscribed 7 mm outer aspect right breast. There is no suspicious group of microcalcifications or new suspicious mass in either breast. Overall Assessment: Benign, BI-RAD 2 Management: Screening Mammogram of both breasts in 1 year. . Patient should continue monthly self-breast exams. A clinical breast exam by your physician is recommended on an annual basis. This exam should not preclude additional follow-up of suspicious palpable abnormalities. Note on Veronica scores and lifetime risk: 1. A Veronica score greater than 3% is considered moderate risk. If this is the case, consider specialist referral to assess eligibility for a risk reducing agent. 2. If overall lifetime risk for the development of breast cancer is 20% or higher, the patient may qualify for future screening with alternating mammogram and breast MRI. [facility], , 08/28/2024 10:07 AM. Electronically signed and approved by: Lokesh Ayon M.D.
== END | disposition home or self-care (01) ==
LOC: RADMAMWWP 15:35
PROVIDERS: ATTEND Internal Medicine Geriatric Medicine
DX: Z12.31 Encounter for screening mammogram for malignant neoplasm of breast (principal); Z90.722 Acquired absence of ovaries, bilateral; Z80.3 Family history of malignant neoplasm of breast; R92.333 Mammographic heterogeneous density, bilateral breasts
CPT/HCPCS: 77063; 77067

== ENCOUNTER → 2024-09-03 | Outpatient (CLI) | payer MEDICARE, BC ==
[2024-09-03 10:49] LABS: Basophils # (A) 0.07 X 10*3/uL (0.00-0.10); Basophils % (A) 0.8 %; Eosinophils % (A) 2.3 %; HCT 45.2 % (37.2-46.3); HGB 14.2 g/dL (12.0-15.0); Lymphocytes # (A) 1.18 X 10*3/uL (0.90-5.00); Lymphocytes % (A) 13.5 %; MCH 26.8 pg (27.0-32.0); MCHC 31.4 g/dL (32.0-37.0); MCV 85.4 FL (80.0-97.0); Mean Platelet Volume 10.9 FL (9.5-12.2); Monocytes # (A) 0.66 X 10*3/uL (0.20-1.00); Monocytes % (A) 7.5 %; NRBC Per 100 WBC 0 X 10*3/uL (0.00-0.01); Neutrophils # (A) 6.57 X 10*3/uL (1.80-7.70); Platelet Count 276 X 10*3/uL (140-440); RBC 5.29 X 10*6/uL (4.10-5.20); RDW 14.2 % (11.5-14.5); WBC 8.76 X 10*3/uL (4.50-10.00)
[2024-09-03 11:03] LABS: Chol/HDL Ratio 3.37 Ratio; LDL Cholesterol,Calculated 83.1 mg/dL (0.0-131.0); Uric Acid 5.7 mg/dL (2.9-7.7)
[2024-09-03 11:04] LABS: ALT 9 U/L (8-44); AST 12 U/L (13-35); Albumin 4.3 g/dL (3.8-4.9); Albumin/Globulin Ratio 1.79 Ratio (1.60-3.17); Alkaline Phosphatase 169 U/L (41-126); BUN/Creat Ratio 18.67 Ratio (12.00-20.00); Calcium 10.8 mg/dL (8.7-10.3); Carbon Dioxide 23.6 mmol/L (21.6-31.8); Chloride 108 mmol/L (96-109); Globulin 2.4 g/dL (1.6-3.3); Glucose 185 mg/dL (70-110); Potassium 4.8 mmol/L (3.5-5.5); Sodium 142 mmol/L (135-145); Total Bilirubin 0.4 mg/dL (0.3-1.2); Total Protein 6.7 g/dL (6.2-8.2)
== END | disposition home or self-care (01) ==
LOC: LABWHC1 07:54
PROVIDERS: ATTEND Internal Medicine Geriatric Medicine
DX: E11.22 Type 2 diabetes mellitus with diabetic chronic kidney disease (principal); N18.31 Chronic kidney disease, stage 3a; Z94.4 Liver transplant status
CPT/HCPCS: 36415; 80053; 80061; 82043; 82570; 83036; 84443; 84550; 85025

== ENCOUNTER → 2024-09-09 | Outpatient (CLI) | payer MEDICARE, BC ==
--- NOTE | 2024-09-09 16:48 | US ---
EXAMINATION TYPE: US carotid duplex BILAT DATE OF EXAM: 09/09/2024 COMPARISON: NONE CLINICAL INDICATION: Female, 69 years old with history of G45.9 TIA; TIA, dizziness TECHNIQUE: Grayscale, color Doppler and spectral Doppler evaluation of the bilateral carotid systems and vertebral arteries. Indirect Doppler criteria was utilized. FINDINGS: EXAM MEASUREMENTS: RIGHT: Peak Systolic Velocity (PSV) cm/sec ----- Right CCA: 85.6 ----- Right ICA: 62.5 ----- Right ECA: 95.1 ICA/CCA ratio: .7 RIGHT: End Diastole cm/sec ----- Right CCA: 14.3 ----- Right ICA: 12.9 ----- Right ECA: 4.0 LEFT: Peak Systolic Velocity (PSV) cm/sec ----- Left CCA: 82.2 ----- Left ICA: 89.4 ----- Left ECA: 117 ICA/CCA ratio: 1.1 LEFT: End Diastole cm/sec ----- Left CCA: 18.6 ----- Left ICA: 25.8 ----- Left ECA: 10.7 VERTEBRALS (direction of flow): Right Vertebral: Antegrade Left Vertebral: Antegrade Rhythm: Normal CPO NOTES: No significant stenosis seen IMPRESSION: No hemodynamically significant internal carotid artery stenosis on either side. Criteria for Assigning % of Stenosis / Diameter reduction (Estimation based on the indirect measurements of the internal carotid artery velocities (ICA PSV). 1. Normal (no stenosis)=ICA PSV < 125 cm/s: ratio < 2.0: ICA EDV<40 cm/s. 2. Less than 50% stenosis=ICA PSV < 125 cm/s: ratio < 2.0: ICA EDV<40 cm/s. 3. 50 to 69% stenosis=ICA PSV of 125 to 230 cm/s: ration 2.0 ? 4.0: ICA EDV 40-100 cm/s. 4. Greater than 70% stenosis to near occlusion= ICA PSV > 230 cm/s: ratio > 4.0: ICA EDV > 100 cm/s. 5. Near occlusion= ICA PSV velocities may be low or undetectable: variable ratio and ICA EDV. 6. Total occlusion=unable to detect flow. [facility], , 09/09/2024 4:46 PM
== END | disposition home or self-care (01) ==
LOC: RADUSWWP 15:16
PROVIDERS: ATTEND Internal Medicine Geriatric Medicine
DX: G45.9 Transient cerebral ischemic attack, unspecified (principal); Z86.73 Personal history of transient ischemic attack (TIA), and cerebral infarction without residual deficits
CPT/HCPCS: 93880

== ENCOUNTER 2024-11-10 08:41 | Emergency (ER) | payer MEDICARE, BC ==
[2024-11-10 08:46] VITALS: RESP 16; TEMP 97.5
--- NOTE | 2024-11-10 09:06 | ED ---
Head Injury HPI - General Chief complaint: Head Injury Stated complaint: fall, head injury Time Seen by Provider: 11/10/24 08:44 Source: patient, family, EMS, RN notes reviewed Mode of arrival: EMS Limitations: no limitations - History of Present Illness Initial comments: This is a 69-year-old female with multiple comorbid conditions presenting to emergency department via EMS for complaints of a mechanical fall that occurred this morning. Patient states that she was sitting in recliner chair in her living room when she attempted to stand up and felt that her leg gave way causing her to fall onto the left side of her head. Patient denies presyncope or syncope states that her leg gave out causing her to fall. States that this happens occasionally at home. She denies loss of consciousness at the time of the fall. Endorses a mild headache to the area that hit the floor. Denies neck pain, blurry double vision, paresthesias. Denies blood thinner use. Denies other systemic a fall. No other acute complaints this time. - Related Data Home Medications Medication Instructions Recorded Confirmed NIFEdipine [Procardia XL] 90 mg PO DAILY 06/01/16 05/23/23 Omeprazole 20 mg PO BID@0900,1700 06/01/16 05/23/23 Montelukast [Singulair] 10 mg PO DAILY@1700 10/04/18 05/23/23 mycophenolate mofetiL [Cellcept] 750 mg PO BID@0900,1700 10/04/18 05/23/23 Brivaracetam [Briviact] 25 mg PO BID@0900,1700 03/24/23 05/23/23 Dapagliflozin Propanediol [Farxiga] 10 mg PO DAILY 03/24/23 05/23/23 Insulin Aspart Prot/Insuln Asp 7 units SQ AC-SUPPER 03/24/23 05/23/23 [NovoLOG MIX 70-30 Flexpen] Insulin Aspart Prot/Insuln Asp 15 units SQ AC-BRKFST 03/24/23 05/23/23 [NovoLOG MIX 70-30 Flexpen] Lacosamide [Vimpat] 100 mg PO BID 03/24/23 05/23/23 Rosuvastatin Calcium 5 mg PO MOWEFR@1700 03/24/23 05/23/23 Semaglutide [Ozempic] 1 mg SQ WE 03/24/23 05/23/23 cloBAZam [Onfi] 10 mg PO BID@0900,1700 03/24/23 05/23/23 ursodioL [Ursodiol] 250 mg PO DAILY@1700 03/24/23 05/23/23 Topiramate 100 mg PO BID@0900,1700 05/15/23 05/23/23 Albuterol Sulfate [Albuterol 2 puff INHALATION RT-Q4H PRN 05/23/23 05/23/23 Sulfate Hfa] Lacosamide [Vimpat] 200 mg PO BID 05/23/23 05/23/23 Losartan [Cozaar] 25 mg PO DAILY 05/23/23 05/23/23 Pravastatin Sodium [Pravachol] 10 mg PO HS 05/23/23 05/23/23 cycloSPORINE, MODIFIED [Neoral] 50 mg PO HS 05/23/23 05/23/23 cycloSPORINE, MODIFIED [Neoral] 75 mg PO DAILY 05/23/23 05/23/23 ursodioL [Ursodiol] 500 mg PO DAILY 05/23/23 05/23/23 Allergies/Adverse reactions: Allergies Allergy/AdvReac Type Severity Reaction Status Date / Time venom-honey bee Allergy Severe Swelling Verified 11/10/24 08:46 [bee venom (honey bee)] ciprofloxacin Allergy Rash/Hives Verified 11/10/24 08:46 codeine Allergy Rash/Hives Verified 11/10/24 08:46 erythromycin base Allergy Rash/Hives Verified 11/10/24 08:46 levofloxacin Allergy Rash/Hives Verified 11/10/24 08:46 lisinopril Allergy Rash/Hives Verified 11/10/24 08:46 metformin Allergy Swelling Verified 11/10/24 08:46 of throat moxifloxacin Allergy Rash/Hives Verified 11/10/24 08:46 Penicillins Allergy hives, Verified 11/10/24 08:46 swelling plum Allergy Unknown Verified 11/10/24 08:46 rofecoxib Allergy Rash/Hives Verified 11/10/24 08:46 Tetracyclines Allergy Rash/Hives Verified 11/10/24 08:46 Review of Systems ROS Statement: Those systems with pertinent positive or pertinent negative responses have been documented in the HPI. ROS Other: All systems not noted in ROS Statement are negative. 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 History of Any Multi-Drug Resistant Organisms: None Reported Past Surgical History: Bowel Resection, Breast Surgery, Cholecystectomy, Hernia Repair, Hysterectomy, Tonsillectomy, Tubal Ligation Additional Past Surgical History / Comment(s): 2013 liver transplant at [facility], bowel resection d/t strangulation, L breast bx/lumpectomy-benign, abdominal hernia repair x2, R carpel tunnel release, colonoscopy/polypectomy, R foot heel spur, bilateral cataract removal with lens implants. Past Anesthesia/Blood Transfusion Reactions: No Reported Reaction Past Psychological History: No Psychological Hx Reported Smoking Status: Former smoker Past Alcohol Use History: None Reported Past Drug Use History: None Reported - Past Family History Father Family Medical History: Myocardial Infarction ([place]) Additional Family Medical History / Comment(s): Father of a [place] at the age of 44yrs. Mother Family Medical History: Coronary Artery Disease (CAD), Dementia, Diabetes Mellitus Additional Family Medical History / Comment(s): Mother at the age of 78yrs. General Exam Limitations: no limitations General appearance: alert, in no apparent distress Eye exam: Present: normal appearance, PERRL, EOMI. Absent: scleral icterus, conjunctival injection, periorbital swelling Neck exam: Present: normal inspection. Absent: tenderness, meningismus, lymphadenopathy Respiratory exam: Present: normal lung sounds bilaterally. Absent: respiratory distress, wheezes, rales, rhonchi, stridor Cardiovascular Exam: Present: regular rate, normal rhythm, normal heart sounds. Absent: systolic murmur, diastolic murmur, rubs, gallop, clicks GI/Abdominal exam: Present: soft, normal bowel sounds. Absent: distended, tenderness, guarding, rebound, rigid Extremities exam: Present: normal inspection, full ROM, normal capillary refill. Absent: tenderness, pedal edema, joint swelling, calf tenderness Neurological exam: Present: alert, oriented X3, CN II-XII intact Course Vital Signs 11/10/24 11/10/24 08:44 10:14 Temperature 97.5 F L 97.5 F L Pulse Rate 81 73 Respiratory 16 16 Rate Blood Pressure 131/74 109/64 O2 Sat by Pulse 97 95 Oximetry Medical Decision Making - Medical Decision Making Was pt. sent in by a medical professional or institution ([facility] Prather, [facility], urgent care, hospital, or senior living...) When possible be specific @ -No Did you speak to anyone other than the patient for history (EMS, parent, family, police, friend...)? What history was obtained from this source @ -No Did you review nursing and triage notes (agree or disagree)? Why? @ -I reviewed and agree with nursing and triage notes Were old charts reviewed (outside hosp., previous admission, EMS record, old EKG, old radiological studies, urgent care reports/EKG's, senior living records)? Report findings @ -No old charts were reviewed Differential Diagnosis (chest pain, altered mental status, abdominal pain women, abdominal pain men, vaginal bleeding, weakness, fever, dyspnea, syncope, headache, dizziness, GI bleed, back pain, seizure, CVA, palpatations, mental health, musculoskeletal)? @ -Concussion, intracranial hemorrhage, hematoma, cervical spine fracture, cervical spine sprain, this list is not all inclusive EKG interpreted by me (3pts min.). @ -None X-rays interpreted by me (1pt min.). @ -None done CT interpreted by me (1pt min.). @ -CT of the brain and C-spine without contrast no acute intracranial or cervical spine process U/S interpreted by me (1pt. min.). @ -None done What testing was considered but not performed or refused? (CT, X-rays, U/S, labs)? Why? @ -None What meds were considered but not given or refused? Why? @ -None Did you discuss the management of the patient with other professionals (pr ofessionals i.e. MARILY Prather, JAZZ SINGER, lab, RT, psych nurse, social work program coordinator, tax lawyer, teacher, chief mechanical officer, gearcase assembler)? Give summary @ -No Was smoking cessation discussed for >3mins.? @ -No Was critical care preformed (if so, how long)? @ -No Were there social determinants of health that impacted care today? How? (Homelessness, low income, unemployed, alcoholism, drug addiction, transportation, low edu. Level, literacy, decrease access to med. care, assisted, rehab)? @ -No Was there de-escalation of care discussed even if they declined (Discuss DNR or withdrawal of care, Hospice)? DNR status @ -No What co-morbidities impacted this encounter? (DM, HTN, Smoking, COPD, CAD, Cancer, CVA, ARF, Chemo, Hep., AIDS, mental health diagnosis, sleep apnea, morbid obesity)? @ -None Was patient admitted / discharged? Hospital course, mention meds given and route, prescriptions, significant lab abnormalities, going to OR and other pertinent info. @ -Discharge. 61-year-old female presenting to emergency department after mechanical fall. It is reported that patient refused c-collar en route via EMS. Neurological examination with no acute deficits. She is provided with dose of pain medication. CT of the brain and C-spine unremarkable. Supportive care discussed at bedside. Case discussed with Dr. Aiken Undiagnosed new problem with uncertain prognosis? @ -No Drug Therapy requiring intensive monitoring for toxicity (Heparin, Nitro, Insulin, Cardizem)? @ -No Were any procedures done? @ -No Diagnosis/symptom? @ -Fall Acute, or Chronic, or Acute on Chronic? @ -Acute Uncomplicated (without systemic symptoms) or Complicated (systemic symptoms)? @ -Uncomplicated Side effects of treatment? @ -No Exacerbation, Progression, or Severe Exacerbation? @ -No Poses a threat to life or bodily function? How? (Chest pain, [place], [place], pneumonia, PE, COPD, DKA, ARF, appy, cholecystitis, CVA, Diverticulitis, Homicidal, Suicidal, threat to staff... and all critical care pts) @ -No Disposition Clinical Impression: Fall Disposition: HOME SELF-CARE Condition: Good Instructions (If sedation given, give patient instructions): Fall Prevention (ED) Additional Instructions: Please return to the Emergency Department if symptoms worsen or any other co ncerns. Is patient prescribed a controlled substance at d/c from ED?: No Referrals: Simon Brown MD [Primary Care Provider] - 1-2 days Time of Disposition: 09:36
[2024-11-10] MEDS: HYDROmorphone 0.5 MG/0.5 ML SYRINGE IM STA (09:20)
--- NOTE | 2024-11-10 09:30 | CT ---
EXAMINATION TYPE: CT brain paweline wo con DATE OF EXAM: 11/10/2024 COMPARISON: Head CT dated 08/05/2013 CLINICAL INDICATION: Female, 69 years old with history of fall, [facility]; [facility], fall, [facility] TECHNIQUE: CT scan of the head and cervical spine are performed without contrast. CT DLP: 1410.[address] CTDI: mGy Automated exposure control for dose reduction was used. Findings: Head CT: The ventricles and basal cisterns and sulci convexities are moderately enlarged consistent with moder ate atrophy. There is moderate decreased density in the periventricular white matter consistent with chronic ischemic white matter demyelination. There is no mass effect or shift in midline structures. There is no acute intra or extra-axial hemorrhage. There is a remote lacunar infarct in the left basal ganglia. Posterior fossa including the brainstem, fourth ventricle and cerebellar pontine angles are grossly n ormal. The intraorbital contents appear normal and symmetric. Visualized paranasal sinuses are well aerated. CT cervical spine: Craniovertebral junction relationships and prevertebral soft tissues are normal. The cervical vertebral segments are normal in height and alignment and there is no fracture subluxati on. There is mild disc space narrowing and spondylosis C5-6 and C6-7 levels and mild degenerative disc di sease. There is no significant degeneration of facet joints or uncovertebral joints The bony cervical canal is widely patent and there is no bony encroachment of the neural foramina. The paraspinal soft tissues unremarkable. IMPRESSION: 1. Head CT: No acute bleed or mass effect. Mild to moderate senescent changes. 2. CT cervical spine: No acute trauma. Mild degenerative disease in lower cervical spine. [facility], , 11/10/2024 9:28 AM
[2024-11-10 10:15] VITALS: BP 109/64; PULSE 73
== END 2024-11-10 10:15 | disposition home or self-care (01) ==
LOC: EC 08:41
DX: S09.90XA Unspecified injury of head, initial encounter (principal); E66.9 Obesity, unspecified; Z88.0 Allergy status to penicillin; Z88.1 Allergy status to other antibiotic agents; Z88.8 Allergy status to other drugs, medicaments and biological substances; Z91.030 Bee allergy status; Z87.891 Personal history of nicotine dependence; Z68.34 Body mass index [BMI] 34.0-34.9, adult; W07.XXXA Fall from chair, initial encounter
CPT/HCPCS: 72125; 70450; 99284; 96372; J1171

== ENCOUNTER → 2024-12-24 | Outpatient (CLI) | payer MEDICARE, BC ==
[2024-12-24 15:50] LABS: Alkaline Phosphatase 192 U/L (41-126); GGT 51 U/L (0-38)
== END | disposition home or self-care (01) ==
LOC: LABWHC1 08:34
PROVIDERS: ATTEND Internal Medicine
DX: Z94.4 Liver transplant status (principal)
CPT/HCPCS: 36415; 82977; 84075